=== PATIENT | male | born 1940 | race Caucasian/White ===

== ENCOUNTER 2017-02-04 17:34 | Inpatient (IN) | payer MEDICARE, BC ==
[2017-02-04] VITALS (7 sets, daily range): BP systolic 140–194; BP diastolic 78–95; PULSE 68–82; RESP 18–24; TEMP 95.6–97.6; O2SAT 96–99
[~2017-02-04] VITALS: Ht 172.7 cm; Wt 55.2 kg
[~2017-02-04 17:34] MED LIST: MECL-62 PO
[2017-02-04] MEDS ORDERED: SODIUM CHLOR 0.9% 1000 ML INJ 1,000 ML IV SCH (18:07)
--- NOTE | 2017-02-04 18:14 | PD ---
HPI Chief Complaint: Abdominal Pain Time Seen by Provider: 17:56 Travel History International Travel<30 days: No Contact w/Intl Traveler<30days: No Traveled to known affect area: No History of Present Illness HPI 76-year-old male complains of abdominal pain. Patient states that the abdominal pain started 2 days ago. Patient states the pain is cramping pain localized to lower abdomen. Patient denies any pain radiation. Patient denies any nausea vomiting diarrhea. Patient denies any dysuria or frequency. Patient denies any fever chills. Patient denies any back pain. Patient was seen at local urgent care center today and had outpatient CT scan abdomen and pelvis done. CT scan abdomen pelvis done at [facility] which shows small bowel obstruction with transitional point at the right low quadrant of the mid ileum. A mass is not seen. Abdominal aortic aneurysm measuring up to 3.7 cm. Hepatic cyst. Patient was advised to go to ED for evaluation and asthma admission. Patient denies any medical problem. Patient states that he is not on any routine medications. PFSH Past Medical History High Cholesterol: Yes Diminished Hearing: Yes Hypertension: Yes Social History Alcohol Use: No Tobacco Use: Yes (1 PPD) Substance Use: No Allergies-Medications (Allergen,Severity, Reaction): Coded Allergies: No Known Allergies (Unverified , 02/04/17) Reported Meds & Prescriptions Reported Meds & Active Scripts Active No Active Prescriptions or Reported Medications Review of Systems General / Constitutional: No: Fever Eyes: No: Visual changes HENT: No: Headaches Cardiovascular: No: Chest Pain or Discomfort Respiratory: No: Shortness of Breath Gastrointestinal: Positive: Abdominal Pain Genitourinary: No: Dysuria Musculoskeletal: No: Pain Skin: No Rash Neurologic: No: Weakness Psychiatric: No: Depression Endocrine: No: Polydipsia Hematologic/Lymphatic: No: Easy Bruising Physical Exam Narrative GENERAL: Well-nourished, well-developed patient. SKIN: Focused skin assessment warm/dry. HEAD: Normocephalic. EYES: No scleral icterus. No injection or drainage. NECK: Supple, trachea midline. No JVD or lymphadenopathy. CARDIOVASCULAR: Regular rate and rhythm without murmurs, gallops, or rubs. RESPIRATORY: Breath sounds equal bilaterally. No accessory muscle use. GASTROINTESTINAL: Abdomen soft, nondistended. Patient has moderate tenderness on palpation lower abdomen. No rebound tenderness. No mass. MUSCULOSKELETAL: No cyanosis, or edema. BACK: Nontender without obvious deformity. No CVA tenderness. Neurologic exam normal. Data Data Last Documented VS Vital Signs Date Time Temp Pulse Resp B/P Pulse Ox O2 Delivery O2 Flow Rate FiO2 02/04/17 17:38 97.3 82 20 146/82 99 MDM Medical Decision Making Medical Screen Exam Complete: Yes Emergency Medical Condition: Yes Differential Diagnosis Differential diagnosis including small bowel obstruction, ileus, enteritis, electrolyte imbalance, dehydration. Narrative Course 76-year-old male complains of low abdominal pain. CT abdomen pelvis shows small bowel obstruction. Normal saline solution 125 cc an hour. Protonix 40 mg IV. Nothing by mouth. Diagnosis Primary Impression: Small bowel obstruction Scripts No Active Prescriptions or Reported Meds Ruperto Draper MD Feb 04, 2017 18:14
[2017-02-04] MEDS ORDERED: ONDANSETRON HCL 4 MG/2 ML VIAL IVP ONE (18:15)
[2017-02-04] MEDS ORDERED: PANTOPRAZOLE SODIUM 40 MG VIAL IVP ONE (18:15)
[2017-02-04 18:24] LABS: AUTOMATED NEUTROPHIL # 8.6 TH/MM3 (1.8-7.7); BASOPHIL # 0.1 TH/MM3 (0-0.2); BASOPHIL % 0.5 % (0.0-2.0); EOSINOPHIL # 0.2 TH/MM3 (0-0.4); EOSINOPHIL % 2.3 % (0.0-4.0); LYMPH % 11.3 % (9.0-44.0); LYMPHOCYTE # 1.2 TH/MM3 (1.0-4.8); MEAN CELL VOLUME 92.7 FL (80.0-100.0); MEAN CORPUSCULAR HGB CONC 33.4 % (32.0-36.0); NEUT % 79.9 % (16.0-70.0); PLATELET COUNT 236 TH/MM3 (150-450); RED BLOOD COUNT 4.96 MIL/MM3 (4.50-5.90); RED CELL DISTRIBUTION WIDTH 12.4 % (11.6-17.2); WHITE BLOOD COUNT 10.7 TH/MM3 (4.0-11.0)
[2017-02-04 18:29] LABS: CHLORIDE 102 MEQ/L (98-107); POTASSIUM 4.2 MEQ/L (3.5-5.1); SODIUM (NA) 140 MEQ/L (136-145)
[2017-02-04 18:33] LABS: ANION GAP 6 MEQ/L (5-15); BICARBONATE 31.6 MEQ/L (21.0-32.0); BLOOD UREA NITROGEN 21 MG/DL (7-18)
[2017-02-04 18:36] LABS: ALT (GPT) 12 U/L (12-78); AST (GOT) 10 U/L (15-37); GLOMERULAR FILTRATION RATE 49 ML/MIN (>89); HEMO FLAGS DIFF FINAL; PROTHROMBIN TIME - PATIENT 10.8 SEC (9.8-11.6)
[2017-02-04 18:37] LABS: TOTAL BILIRUBIN ADULT 0.6 MG/DL (0.2-1.0)
[2017-02-04 18:39] LABS: ALKALINE PHOSPHATASE 94 U/L (45-117)
[2017-02-04 19:34] LABS: BLOOD, URINE NEG (NEG); GLUCOSE,URINE NEG (NEG); KETONE, URINE NEG (NEG); NITRITE,URINE NEG (NEG); PH, URINE 5.5 (5.0-8.5)
--- NOTE | 2017-02-04 19:42 | PD ---
Physical Exam Time Seen by Provider: 19:[address] Draper with this patient with me to check the results of the lab work and admit. Dr. Draper ordered a CT scan/pelvis which showed a suspected small bowel obstruction with transition point in the right lower quadrant at the mid ileum. A Mass is not seen. Data Data Last Documented VS Vital Signs Date Time Temp Pulse Resp B/P Pulse Ox O2 Delivery O2 Flow Rate FiO2 02/04/17 18:26 79 20 154/81 98 02/04/17 17:38 97.3 Orders Complete Blood Count With Diff (02/04/17 18:07) Comprehensive Metabolic Panel (02/04/17 18:07) Lipase (02/04/17 18:07) Prothrombin Time / Inr (Pt) (02/04/17 18:07) Act Partial Throm Time (Ptt) (02/04/17 18:07) Urinalysis - C+S If Indicated (02/04/17 18:07) Iv Access Insert/Monitor (02/04/17 18:07) Ecg Monitoring (02/04/17 18:07) Oximetry (02/04/17 18:07) Ondansetron Inj (Zofran Inj) (02/04/17 18:15) Pantoprazole Inj (Protonix Inj) (02/04/17 18:15) Sodium Chlor 0.9% 1000 Ml Inj (Ns 1000 M (02/04/17 18:07) Electrocardiogram (02/04/17 18:07) Labs Laboratory Tests Test 02/04/17 18:15 White Blood Count 10.7 TH/MM3 Red Blood Count 4.96 MIL/MM3 Hemoglobin 15.4 GM/DL Hematocrit 46.0 % Mean Corpuscular Volume 92.7 FL Mean Corpuscular Hemoglobin 31.0 PG Mean Corpuscular Hemoglobin 33.4 % Concent Red Cell Distribution Width 12.4 % Platelet Count 236 TH/MM3 Mean Platelet Volume 7.9 FL Neutrophils (%) (Auto) 79.9 % Lymphocytes (%) (Auto) 11.3 % Monocytes (%) (Auto) 6.0 % Eosinophils (%) (Auto) 2.3 % Basophils (%) (Auto) 0.5 % Neutrophils # (Auto) 8.6 TH/MM3 Lymphocytes # (Auto) 1.2 TH/MM3 Monocytes # (Auto) 0.6 TH/MM3 Eosinophils # (Auto) 0.2 TH/MM3 Basophils # (Auto) 0.1 TH/MM3 CBC Comment DIFF FINAL Differential Comment Prothrombin Time 10.8 SEC Prothromb Time International 1.0 RATIO Ratio Activated Partial 31.0 SEC Thromboplast Time Sodium Level 140 MEQ/L Potassium Level 4.2 MEQ/L Chloride Level 102 MEQ/L Carbon Dioxide Level 31.6 MEQ/L Anion Gap 6 MEQ/L Blood Urea Nitrogen 21 MG/DL Creatinine 1.40 MG/DL Estimat Glomerular Filtration 49 ML/MIN Rate Random Glucose 92 MG/DL Calcium Level 9.4 MG/DL Total Bilirubin 0.6 MG/DL Aspartate Amino Transf 10 U/L (AST/SGOT) Alanine Aminotransferase 12 U/L (ALT/SGPT) Alkaline Phosphatase 94 U/L Total Protein 7.2 GM/DL Albumin 4.0 GM/DL Lipase 104 U/L [facility] Medical Record Reviewed: Yes Supervised Visit with LAXMI: Yes Interpretation(s) The complete metabolic profile shows a BUN of 21, creatinine 1.4, GFR of 49 but is otherwise unremarkable. The lipase is normal. The coagulation profile shows an APTT of 31 but is otherwise unremarkable. The CBC is normal. The CT abdomen/pelvis with IV and by mouth contrast shows a small bowel obstruction. Differential Diagnosis Small bowel obstruction, abdominal mass, pancreatitis, electrolyte disorder, anemia Narrative Course The patient has a small bowel obstruction. The patient has a surgical scar from the xiphoid process to below the umbilicus but he does not remember what it was for. He said this most of appendectomy [place]. The patient likely has adhesions as the reason for the small bowel obstruction. Plan: The patient will be admitted to Dr. Medina of the [facility] service. He is essentially in no discomfort now and has not been vomiting and an NG tube will be withheld at this time. Diagnosis Primary Impression: Small bowel obstruction Scripts No Active Prescriptions or Reported Meds Wade Dalton MD Feb 04, 2017 19:42
[2017-02-04 19:43] LABS: URINE COLOR YELLOW (YELLW/STRAW)
[2017-02-04 19:45] LABS: COMMENT (UR) CULT NOT INDICATED; CULTURE IF INDICATED CULT NOT INDICATED; RBC, URINE 0-3 /hpf (0-3); SQUAMOUS EPITHELIAL CELL URINE 0-5 /hpf (0-5); WBC, URINE 0-2 /hpf (0-5)
[2017-02-04] MEDS: SODIUM CHLOR 0.9% 1000 ML INJ 1,000 ML IV SCH (19:46)
[2017-02-04] MEDS ORDERED: SENNOSIDES 8.6 MG TAB PO PRN (20:00)
[2017-02-04] MEDS ORDERED: BISACODYL 10 MG SUPP RECTAL PRN (20:00)
[2017-02-04] MEDS ORDERED: NALOXONE HCL 0.4 MG/ML AMP IV PRN (20:00)
[2017-02-04] MEDS ORDERED: LACTULOSE SYRUP 20 GM/30 ML CUP PO PRN (20:00)
[2017-02-04] MEDS ORDERED: MORPHINE SULFATE 4 MG/ML INJ IV PUSH PRN (20:00)
[2017-02-04] MEDS ORDERED: MAGNESIUM HYDROXIDE SUSP 30 ML CUP PO PRN (20:00)
[2017-02-04] MEDS ORDERED: SODIUM CHLORIDE 0.9% FLUSH 10 ML FLUSH IV FLUSH PRN (20:00)
[2017-02-04] MEDS: DOCUSATE SODIUM 50 MG/SENNA 8.6 MG TAB PO SCH (21:00)
[2017-02-04] MEDS: SODIUM CHLORIDE 0.9% FLUSH 10 ML FLUSH IV FLUSH SCH (21:00)
[2017-02-05] MEDS: SODIUM CHLOR 0.9% 1000 ML INJ 1,000 ML IV SCH (01:59)
[2017-02-05 04:00] VITALS: BP 189/97; PULSE 65; RESP 18; TEMP 97.4; O2SAT 96
[2017-02-05 06:50] LABS: AUTOMATED NEUTROPHIL # 5.1 TH/MM3 (1.8-7.7); BASOPHIL % 0.4 % (0.0-2.0); EOSINOPHIL # 0.3 TH/MM3 (0-0.4); EOSINOPHIL % 4.4 % (0.0-4.0); HEMATOCRIT 39.1 % (39.0-51.0); HEMO FLAGS DIFF FINAL; LYMPH % 17.8 % (9.0-44.0); LYMPHOCYTE # 1.3 TH/MM3 (1.0-4.8); MEAN CELL VOLUME 92.3 FL (80.0-100.0); MEAN CORPUSCULAR HEMOGLOBIN 31.9 PG (27.0-34.0); MEAN CORPUSCULAR HGB CONC 34.5 % (32.0-36.0); MONO % 7.6 % (0.0-8.0); NEUT % 69.8 % (16.0-70.0); PLATELET COUNT 187 TH/MM3 (150-450); RED BLOOD COUNT 4.24 MIL/MM3 (4.50-5.90); RED CELL DISTRIBUTION WIDTH 12.3 % (11.6-17.2); WHITE BLOOD COUNT 7.3 TH/MM3 (4.0-11.0)
[2017-02-05 06:55] LABS: CHLORIDE 107 MEQ/L (98-107); POTASSIUM 4.1 MEQ/L (3.5-5.1); SODIUM (NA) 144 MEQ/L (136-145)
[2017-02-05 07:20] LABS: ALKALINE PHOSPHATASE 90 U/L (45-117); ALT (GPT) 10 U/L (12-78); ANION GAP 6 MEQ/L (5-15); AST (GOT) 12 U/L (15-37); BICARBONATE 30.6 MEQ/L (21.0-32.0); BLOOD UREA NITROGEN 14 MG/DL (7-18); GLOMERULAR FILTRATION RATE 65 ML/MIN (>89); TOTAL BILIRUBIN ADULT 0.8 MG/DL (0.2-1.0)
[2017-02-05 08:00] VITALS: BP 179/103; PULSE 67; RESP 20; TEMP 97; O2SAT 95
[2017-02-05] MEDS: SODIUM CHLORIDE 0.9% FLUSH 10 ML FLUSH IV FLUSH SCH (08:59)
[2017-02-05] MEDS: DOCUSATE SODIUM 50 MG/SENNA 8.6 MG TAB PO SCH (08:59)
--- NOTE | 2017-02-05 09:15 | HHI.HP ---
[facility] No Primary Care Physician Admission Diagnosis small bowel obstruction Diagnoses: (1) Small bowel obstruction Diagnosis: Principal (2) Accelerated hypertension Diagnosis: Principal (3) Azotemia Diagnosis: Principal Chief Complaint: Sent over by urgent care because of abnormal CT results Travel History International Travel<30 Days: No Contact w/Intl Traveler <30 Da: No Traveled to Known Affected Are: No History of Present Illness Written by Eriberto Dalton, acting as scribe for Dr. Cash on 02/05/17 at 09: 13. 76 year-old male who indicates he does not have any chronic medical illnesses and does not take any medication on a daily basis. His memory questionable. He cannot tell me the city, state, year, president. However he knows his history quite well to include social history, family history. He indicates that over the last 2 weeks he has had abdominal discomfort. He went to an urgent care center yesterday and had CT scan done which did show small bowel obstruction with transition zone. Patient referred to the ER for continued management and care. Patient was evaluated by ER physician. Found to have some mild azotemia. Patient was recommended admission by ER physician. Patient had 3 bowel movements in emergency department the patient indicates that his abdominal pain is much improved. He wants to go home. Patient denies any nausea, vomiting, diarrhea, chest pain, shortness of breath, dyspnea Review of Systems Constitutional: DENIES: Diaphoretic episodes, Fatigue, Fever, Weight gain, Weight loss, Chills, Dizziness, Change in appetite, Night Sweats Endocrine: DENIES: Heat/cold intolerance, Polydipsia, Polyuria, Polyphagia Eyes: DENIES: Blurred vision, Diplopia, Eye inflammation, Eye pain, Vision loss , Double Vision Ears, nose, mouth, throat: COMPLAINS OF: Hearing loss, DENIES: Nasal discharge , Throat pain, Ear Pain, Running Nose, Sinus Pain Respiratory: DENIES: Apneas, Cough, Snoring, Wheezing, Hemoptysis, Sputum production, Shortness of breath Cardiovascular: DENIES: Chest pain, Palpitations, Syncope, Dyspnea on Exertion , PND, Lower Extremity Edema, Orthopnea, Claudication Gastrointestinal: COMPLAINS OF: Abdominal pain, DENIES: Black stools, Bloody stools, Constipation, Diarrhea, Nausea, Vomiting, Difficulty Swallowing, Anorexia Genitourinary: DENIES: Sexual dysfunction, Urinary frequency, Urinary incontinence, Urgency, Hematuria, Dysuria, Nocturia, Penile Discharge, Testicular Pain, Testicular Swelling Musculoskeletal: DENIES: Joint pain, Muscle aches, Stiffness, Joint Swelling, Back pain, Neck pain Integumentary: DENIES: Abnormal pigmentation, Nail changes, Pruritus, Rash Hematologic/lymphatic: DENIES: Bruising, Lymphadenopathy Immunologic/allergic: DENIES: Eczema, Urticaria Neurologic: DENIES: Abnormal gait, Headache, Localized weakness, Paresthesias, Seizures, Speech Problems, Tremor, Poor Balance Psychiatric: DENIES: Anxiety, Confusion, Mood changes, Depression, Hallucinations, Agitation, Suicidal Ideation, Homicidal Ideation, Delusions Past Family Social History Past Medical History Patient denies any chronic medical illnesses Past Surgical History Abdominal surgery for appendicitis Reported Medications Reported Meds & Active Scripts Active No Active Prescriptions or Reported Medications Allergies: Coded Allergies: No Known Allergies (Unverified , 02/04/17) Family History Reviewed is significant for lung cancer Social History Patient smokes a pack a cigarettes a day since he was 14 years old. Denies any alcohol or illicit drugs Physical Exam Vital Signs Vital Signs Date Time Temp Pulse Resp B/P Pulse Ox O2 Delivery O2 Flow Rate FiO2 02/05/17 08:00 97.0 67 20 179/103 95 02/05/17 04:00 97.4 65 18 189/97 96 02/04/17 22:05 95.6 70 18 194/95 97 02/04/17 22:02 82 20 170/78 95 02/04/17 21:18 68 20 175/93 97 02/04/17 19:37 24 02/04/17 19:34 97.6 82 24 140/86 96 02/04/17 18:26 79 20 154/81 98 02/04/17 18:25 98 02/04/17 17:38 97.3 82 20 146/82 99 Physical Exam GENERAL: Well-developed, well-nourished, in no acute distress. alert and orientated to person. HEENT: Head is normocephalic without any lesions or masses noted. Facial features are symmetric. Eyes: Pupils equal round reactive to light. Extraocular muscles are intact. Conjunctivae were clear. Oropharyngeal: Pharynx without any erythema edema. Tongue is midline without deviation. Buccal mucosa is moist without any masses or lesions NECK: Supple without any masses. Trachea midline no deviation. No JVD, no bruits are appreciated CARDIAC: Regular rhythm, regular rate. S1/S2 are heard. No murmurs gallops or rubs. LUNGS: Clear to auscultation bilaterally. No wheeze, rhonchi or rales. No use of accessory muscles on inspiration or expiration. ABDOMEN: Soft, mid abdominal scar noted. Nontender. Nondistended. Bowel sounds heard in all 4 quadrants. No organomegaly or masses. Negative rebound, negative guarding EXTREMITIES: No edema, pulses are equal bilaterally. No cyanosis or clubbing NEUROLOGY: Mood and affect appear appropriate. Cranial nerves II through XII grossly intact. Muscle strength 5/5 in upper and lower extremities bilaterally. Deep tendon reflexes are 2+ in upper and lower extremities bilaterally. Laboratory Laboratory Tests Test 02/04/17 02/04/17 02/05/17 18:15 19:30 05:17 White Blood Count 10.7 7.3 Red Blood Count 4.96 4.24 Hemoglobin 15.4 13.5 Hematocrit 46.0 39.1 Mean Corpuscular Volume 92.7 92.3 Mean Corpuscular Hemoglobin 31.0 31.9 Mean Corpuscular Hemoglobin 33.4 34.5 Concent Red Cell Distribution Width 12.4 12.3 Platelet Count 236 187 Mean Platelet Volume 7.9 8.0 Neutrophils (%) (Auto) 79.9 69.8 Lymphocytes (%) (Auto) 11.3 17.8 Monocytes (%) (Auto) 6.0 7.6 Eosinophils (%) (Auto) 2.3 4.4 Basophils (%) (Auto) 0.5 0.4 Neutrophils # (Auto) 8.6 5.1 Lymphocytes # (Auto) 1.2 1.3 Monocytes # (Auto) 0.6 0.6 Eosinophils # (Auto) 0.2 0.3 Basophils # (Auto) 0.1 0.0 CBC Comment DIFF FINAL DIFF FINAL Differential Comment Prothrombin Time 10.8 Prothromb Time International 1.0 Ratio Activated Partial 31.0 Thromboplast Time Sodium Level 140 144 Potassium Level 4.2 4.1 Chloride Level 102 107 Carbon Dioxide Level 31.6 30.6 Anion Gap 6 6 Blood Urea Nitrogen 21 14 Creatinine 1.40 1.10 Estimat Glomerular Filtration 49 65 Rate Random Glucose 92 70 Calcium Level 9.4 8.6 Total Bilirubin 0.6 0.8 Aspartate Amino Transf 10 12 (AST/SGOT) Alanine Aminotransferase 12 10 (ALT/SGPT) Alkaline Phosphatase 94 90 Total Protein 7.2 5.7 Albumin 4.0 3.2 Lipase 104 Urine Color YELLOW Urine Turbidity CLEAR Urine pH 5.5 Urine Specific [place] GREATER THAN 1.035 Urine Protein NEG Urine Glucose (UA) NEG Urine Ketones NEG Urine Occult Blood NEG Urine Nitrite NEG Urine Bilirubin NEG Urine Leukocyte Esterase NEG Urine RBC 0-3 Urine WBC 0-2 Urine Squamous Epithelial 0-5 Cells Urine Bacteria NONE Microscopic Urinalysis Comment CULT NOT INDICATED Result Diagram: 02/05/1751602/05/17516 Assessment and Plan Problem List: (1) Small bowel obstruction ICD Code: K56.69 Status: Acute Plan: Patient clinically improved at this time. He had 3 bowel movements in emergency department Check flat and upright abdominal series to evaluate for resolution of bowel obstruction IV parenteral pain medication, antiemetic, IV fluid hydration Patient is eager to go home, If obstruction resolved will plan discharge home (2) Accelerated hypertension ICD Code: I10 Status: Acute Plan: Patient denies any history of hypertension or medications Start lisinopril 10 mg daily Vasotec as needed (3) Azotemia ICD Code: R79.89 Status: Resolved Plan: Likely secondary to mild dehydration Follow-up laboratory studies haven't surgically improved Assessment and Plan This note was transcribed by marissa Dalton. I, Dr. Benedict Cash personally performed the history, physical exam, and medical decision making; and confirmed the accuracy of the information in the transcribed note. Authenticated by Dr. Benedict Cash on 02/05/17 at 09:23. Discharge disposition Discharge home in stable condition once clinically improved and bowel obstruction resolved Activity: Ad dawna. Diet: Healthy heart diet Medications per medication reconciliation Follow-up primary medical doctor in one week Code Status Full code Discussed Condition With Patient Physician Certification 2 Midnight Certification Type: Admission for Inpatient Services Order for Inpatient Services The services are ordered in accordance with Medicare regulations or non- Medicare payer requirements, as applicable. In the case of services not specified as inpatient-only, they are appropriately provided as inpatient services in accordance with the 2-midnight benchmark. Estimated LOS (days): 2 days is the estimated time the patient will need to remain in the hospital, assuming treatment plan goals are met and no additional complications. Post-Hospital Plan: Not yet determined Eriberto Dalton Feb 05, 2017 09:15 Benedict Cash MD Feb 05, 2017 09:15
[2017-02-05] MEDS ORDERED: ENALAPRILAT 1.25 MG/ML VIAL IV PUSH PRN (09:30)
[2017-02-05] MEDS ORDERED: LISINOPRIL 10 MG TAB PO SCH (10:00)
--- NOTE | 2017-02-05 11:01 | RADRPT ---
EXAM DATE/TIME: 02/05/2017 09:19 [facility] COMPARISON: No previous studies available for comparison. INDICATIONS : Obstruction. Abdominal pain MEDICAL HISTORY : None. SURGICAL HISTORY : None. ENCOUNTER: Initial ACUITY: 3 days PAIN SCORE: 0/10 LOCATION: Abdomen FINDINGS: There is residual contrast in large bowel. Small amount of residual contrast also present in the blad audi. Bowel gas pattern demonstrates a mild ileus. No evidence for obstruction on the current exam. No free air. CONCLUSION: 1. Residual contrast in large bowel and bladder. Mild ileus. No definite evidence for obstruction. Robert Giles MD on February 05, 2017 at 10:57 Board Certified Radiologist. This report was verified electronically.
[2017-02-05] MEDS ORDERED: MORPHINE SULFATE 4 MG/ML INJ IV PUSH PRN (11:30)
[2017-02-05 12:00] VITALS: BP 158/98; PULSE 78; RESP 20; TEMP 96.5; O2SAT 95
[2017-02-05] MEDS ORDERED: LISI10TA3 PO (14:02)
--- NOTE | 2017-02-05 14:03 | HHI.DCPOC ---
Discharge Care Plan Diagnosis: (1) Small bowel obstruction (2) Accelerated hypertension (3) Azotemia Goals to Promote Your Health * To prevent worsening of your condition and complications * To maintain your health at the optimal level Directions to Meet Your Goals Take your medications as prescribed Follow your dietary instruction Follow activity as directed Keep your appointments as scheduled Take your immunizations and boosters as scheduled If your symptoms worsen call your PCP, if no PCP go to Urgent Care Center or Emergency Room Smoking is Dangerous to Your Health. Avoid second hand smoke Call the 24-hour hour crisis hotline for domestic abuse at Eriberto Dalton Feb 05, 2017 14:03
--- NOTE | 2017-02-05 16:08 | EKG ---
Date Performed: 02/04/2017 Time Performed: 18:19:43 PTAGE: 76 years EKG: Sinus rhythm INDETERMINATE AXIS ATYPICAL ECG NO PREVIOUS TRACING DOCTOR: Vero Radford Interpretating Date/Time 02/05/2017 16:07:07
== END 2017-02-05 13:00 | disposition home or self-care (01) | DRG 390 ==
LOC: PHED 17:34 → PHEDA 19:43 → PH3B 22:06
PROVIDERS: ADMIT Hospitalist; ATTEND Hospitalist
DX: K56.5 Intestinal adhesions [bands] with obstruction (postinfection) (principal); K76.89 Other specified diseases of liver; I10 Essential (primary) hypertension; R79.89 Other specified abnormal findings of blood chemistry; F17.210 Nicotine dependence, cigarettes, uncomplicated; E78.00 Pure hypercholesterolemia, unspecified; I71.4 Abdominal aortic aneurysm, without rupture; J45.909 Unspecified asthma, uncomplicated; H91.90 Unspecified hearing loss, unspecified ear
CPT/HCPCS: 74020; 80053; 81001; 83690; 85025; 85610; 85730; 93005; C9113; J2405; J7030

== ENCOUNTER 2017-12-02 18:57 | Inpatient (IN) | payer MEDICARE, BC ==
[~2017-12-02] VITALS: Ht 167.6 cm; Wt 53.2 kg
[~2017-12-02 18:57] MED LIST changes: +LISI10TA3 PO; -MECL-62 PO
[2017-12-02 19:00] VITALS: BP 156/70; PULSE 78; RESP 22; TEMP 98.3; O2SAT 99
[2017-12-02] MEDS ORDERED: SODIUM CHLORIDE 0.9% FLUSH 10 ML FLUSH IV FLUSH PRN ×2 (19:15→22:15)
[2017-12-02 19:48] LABS: AUTOMATED NEUTROPHIL # 4.6 TH/MM3 (1.8-7.7); BASOPHIL # 0.1 TH/MM3 (0-0.2); BASOPHIL % 1.1 % (0.0-2.0); EOSINOPHIL # 0.3 TH/MM3 (0-0.4); EOSINOPHIL % 5.4 % (0.0-4.0); HEMATOCRIT 39.5 % (39.0-51.0); HEMOGLOBIN 12.6 GM/DL (13.0-17.0); LYMPH % 14.1 % (9.0-44.0); LYMPHOCYTE # 0.9 TH/MM3 (1.0-4.8); MEAN CELL VOLUME 95.5 FL (80.0-100.0); MEAN CORPUSCULAR HEMOGLOBIN 30.4 PG (27.0-34.0); MEAN CORPUSCULAR HGB CONC 31.8 % (32.0-36.0); MEAN PLATELET VOLUME 8.2 FL (7.0-11.0); MONO % 8.1 % (0.0-8.0); MONOCYTE # 0.5 TH/MM3 (0-0.9); NEUT % 71.3 % (16.0-70.0); PLATELET COUNT 160 TH/MM3 (150-450); RED BLOOD COUNT 4.14 MIL/MM3 (4.50-5.90); RED CELL DISTRIBUTION WIDTH 13.7 % (11.6-17.2); WHITE BLOOD COUNT 6.4 TH/MM3 (4.0-11.0)
[2017-12-02 20:03] LABS: CHLORIDE 106 MEQ/L (98-107); SODIUM (NA) 139 MEQ/L (136-145)
[2017-12-02 20:05] LABS: INTERNATIONAL NORMALIZED RATIO 1.2 RATIO; PROTHROMBIN TIME - PATIENT 11.7 SEC (9.8-11.6)
[2017-12-02 20:07] LABS: CALCIUM 8.1 MG/DL (8.5-10.1)
[2017-12-02 20:08] LABS: ALBUMIN 3.2 GM/DL (3.4-5.0); BICARBONATE 29.3 MEQ/L (21.0-32.0); BLOOD UREA NITROGEN 26 MG/DL (7-18); GLUCOSE,RANDOM 80 MG/DL (74-106)
[2017-12-02 20:11] LABS: ALT (GPT) 16 U/L (12-78); AST (GOT) 11 U/L (15-37); GLOMERULAR FILTRATION RATE 42 ML/MIN (>89)
[2017-12-02 20:12] LABS: TOTAL BILIRUBIN ADULT 0.8 MG/DL (0.2-1.0); TOTAL PROTEIN 6.1 GM/DL (6.4-8.2)
[2017-12-02 20:14] LABS: ALKALINE PHOSPHATASE 108 U/L (45-117)
[2017-12-02 20:16] LABS: TROPONIN I 0.02 NG/ML (0.02-0.05)
--- NOTE | 2017-12-02 20:23 | RADRPT ---
EXAM DATE/TIME: 12/02/2017 19:58 [facility] COMPARISON: No previous studies available for comparison. INDICATIONS : Short of breath MEDICAL HISTORY : None. SURGICAL HISTORY : None. ENCOUNTER: Initial ACUITY: 1 day PAIN SCORE: 0/10 LOCATION: Bilateral chest FINDINGS: There is mild streaky perihilar parenchyma opacity and slight interstitial prominence. No significant alveolar consolidation or pleural effusion. Heart size is upper limits of normal. CONCLUSION: Mild streaky perihilar parenchymal opacities and slight interstitial prominence Deon Durham MD on December 02, 2017 at 20:20 Board Certified Radiologist. This report was verified electronically.
[2017-12-02 20:30] VITALS: BP 159/86; PULSE 94; RESP 36; O2SAT 97
[2017-12-02] MEDS ORDERED: LORazepam 2 MG/ML VIAL IV PUSH ONE (20:30)
[2017-12-02 20:31] VITALS: PULSE 92; RESP 38; O2SAT 100
[2017-12-02 20:39] LABS: BLOOD, URINE NEG (NEG); GLUCOSE,URINE 100 mg/dL (NEG); KETONE, URINE TRACE mg/dL (NEG); NITRITE,URINE NEG (NEG); PH, URINE 6.5 (5.0-8.5); URINE LEUKOCYTE ESTERASE NEG (NEG)
[2017-12-02 20:40] LABS: BILIRUBIN, URINE NEG (NEG); URINE COLOR AMBER (YELLW/STRAW)
--- NOTE | 2017-12-02 20:44 | PD ---
HPI Chief Complaint: Altered Mental Status Time Seen by Provider: 19:02 Travel History International Travel<30 days: No Contact w/Intl Traveler<30days: No Traveled to known affect area: No History of Present Illness HPI 77-year-old male brought in by ambulance from home after neighbors called 911 about concerns about the patient's mental status. Apparently the patient was in his yard pulling his pants down. EMS reports that the patient usually has a narcotics and vice detective at home, however there was no narcotics and vice detective to be found. Patient arrives moaning and is unable to provide any meaningful history. He does attempt to answer questions, however his answers do not make any sense. There are no focal neurologic findings on exam, and the patient appears to be uncomfortable, turning in the stretcher seemingly in attempts to make himself more comfortable. PFSH Past Medical History High Cholesterol: Yes Diminished Hearing: Yes Hypertension: Yes ?: Not Social History Alcohol Use: No Tobacco Use: Yes (1 PPD) Substance Use: No Allergies-Medications (Allergen,Severity, Reaction): Coded Allergies: No Known Allergies (Unverified , 02/04/17) Reported Meds & Prescriptions Reported Meds & Active Scripts Active Lisinopril 10 Mg Tab 10 Mg PO DAILY Review of Systems ROS Limitations: Clinical Condition, Altered Mental Status Physical Exam Narrative GENERAL: Well-developed, thin, awake, alert, moaning, tossing and turning in stretcher in attempts to get comfortable. SKIN: Focused skin assessment warm/dry. Healing abrasion to right proximal/ lateral/posterior forearm without surrounding warmth erythema. No new or bleeding lacerations. HEAD: Atraumatic. Normocephalic. EYES: Pupils equal, round, 3 mm, reactive to light. No scleral icterus. No injection or drainage. ENT: Mucous membranes pink and dry. NECK: Trachea midline. No JVD. No nuchal rigidity. CARDIOVASCULAR: Regular rate and rhythm. RESPIRATORY: No accessory muscle use. Clear to auscultation. Breath sounds equal bilaterally. GASTROINTESTINAL: Abdomen soft, mild diffuse tenderness, nondistended, no peritoneal signs. MUSCULOSKELETAL: No obvious deformities. No clubbing. No cyanosis. No edema. NEUROLOGICAL: Awake and alert. No obvious cranial nerve deficits. Motor grossly within normal limits. Inappropriate speech. PSYCHIATRIC: Unable to assess. Data Data Last Documented VS Vital Signs Date Time Temp Pulse Resp B/P (MAP) Pulse Ox O2 Delivery O2 Flow Rate FiO2 12/02/17 21:50 78 24 161/88 (112) 100 Nasal Cannula 2.00 12/02/17 19:00 98.3 Orders Orders Electrocardiogram (12/02/17 19:10) Ammonia (12/02/17 19:10) Complete Blood Count With Diff (12/02/17 19:10) Comprehensive Metabolic Panel (12/02/17 19:10) Creatine Kinase (Cpk) (12/02/17 19:10) Prothrombin Time / Inr (Pt) (12/02/17:10) Act Partial Throm Time (Ptt) (12/02/17:10) Troponin I (12/02/17:10) Thyroid Stimulating Hormone (12/02/17:10) Urinalysis - C+S If Indicated (12/02/17 19:10) Lactic Acid Sepsis Protocol (12/02/17 19:10) Blood Culture (12/02/17 19:10) Chest, Single Ap (12/02/17 19:10) Ct Brain W/O Iv Contrast(Rout) (12/02/17 19:10) Blood Glucose (12/02/17 19:10) Ecg Monitoring (12/02/17 19:10) Iv Access Insert/Monitor (12/02/17:10) Oximetry (12/02/17 19:10) Sodium Chloride 0.9% Flush (Ns Flush) (12/02/17 19:15) Ct Abd/Pel W/O Iv Contrast (12/02/17 ) Cath For Specimen (12/02/17 19:10) Lorazepam Inj (Ativan Inj) (12/02/17 20:30) Ct Thorax/ Chest Wo Iv Contras (12/02/17 ) Labs Laboratory Tests Test 12/02/17 19:20 12/02/17 19:30 12/02/17 20:30 White Blood Count 6.4 TH/MM3 Red Blood Count 4.14 MIL/MM3 Hemoglobin 12.6 GM/DL Hematocrit 39.5 % Mean Corpuscular Volume 95.5 FL Mean Corpuscular Hemoglobin 30.4 PG Mean Corpuscular Hemoglobin Concent 31.8 % Red Cell Distribution Width 13.7 % Platelet Count 160 TH/MM3 Mean Platelet Volume 8.2 FL Neutrophils (%) (Auto) 71.3 % Lymphocytes (%) (Auto) 14.1 % Monocytes (%) (Auto) 8.1 % Eosinophils (%) (Auto) 5.4 % Basophils (%) (Auto) 1.1 % Neutrophils # (Auto) 4.6 TH/MM3 Lymphocytes # (Auto) 0.9 TH/MM3 Monocytes # (Auto) 0.5 TH/MM3 Eosinophils # (Auto) 0.3 TH/MM3 Basophils # (Auto) 0.1 TH/MM3 CBC Comment DIFF FINAL Differential Comment Prothrombin Time 11.7 SEC Prothromb Time International Ratio 1.2 RATIO Activated Partial Thromboplast Time 28.0 SEC Blood Urea Nitrogen 26 MG/DL Creatinine 1.60 MG/DL Random Glucose 80 MG/DL Total Protein 6.1 GM/DL Albumin 3.2 GM/DL Calcium Level 8.1 MG/DL Aspartate Amino Transf (AST/SGOT) 11 U/L Alanine Aminotransferase (ALT/SGPT) 16 U/L Total Bilirubin 0.8 MG/DL Sodium Level 139 MEQ/L Potassium Level 4.2 MEQ/L Chloride Level 106 MEQ/L Carbon Dioxide Level 29.3 MEQ/L Anion Gap 4 MEQ/L Estimat Glomerular Filtration Rate 42 ML/MIN Total Creatine Kinase 75 U/L Troponin I 0.02 NG/ML Thyroid Stimulating Hormone 3rd Gen 3.570 uIU/ML Lactic Acid Level 1.0 mmol/L Ammonia 19 MCMOL/L Urine Color OSMIN Urine Turbidity CLEAR Urine pH 6.5 Urine Specific [place] 1.025 Urine Protein 30 mg/dL Urine Glucose (UA) 100 mg/dL Urine Ketones TRACE mg/dL Urine Occult Blood NEG Urine Nitrite NEG Urine Bilirubin NEG Urine Urobilinogen 1.0 MG/DL Urine Leukocyte Esterase NEG Urine RBC 0-3 /hpf Urine WBC 0-2 /hpf Urine Bacteria NONE /hpf Microscopic Urinalysis Comment CULT NOT INDICATED MDM Medical Decision Making Medical Screen Exam Complete: Yes Emergency Medical Condition: Yes Differential Diagnosis Intracranial abnormality, sepsis, pneumonia, intra-abdominal process, UTI, metabolic abnormality, encephalopathy, delirium, dementia Narrative Course Several attempts were made by the patient's nurse and charge nurse to contact the narcotics and vice detective on record, however there is no answer. Initial vital signs show heart rate 78, blood pressure 156/70, pulse ox 99% on room air, rectal temperature 98.3F. CBC: WBC 6.4, hemoglobin 12.6, hematocrit 39.5, platelets 160, neutrophils 71%. CMP is remarkable for BUN 26, creatinine 1.6, GFR 42 which is slightly worse than his baseline, otherwise unremarkable. Lactic acid is 1. Ammonia is 19. TSH is 3.57. UA: 30 protein, 100 glucose, trace ketones, not suggestive of UTI. Chest x-ray: Mild streaky perihilar parenchymal opacities and slight interstitial prominence. CT head: CONCLUSION: Atrophy and chronic appearing white matter changes CT thorax: CONCLUSION: Emphysema and diffuse mild interstitial disease which appears at least partly chronic. Small bilateral pulmonary nodules which will need to be followed. Small bilateral effusions. CT abdomen pelvis: CONCLUSION: Motion degraded exam grossly negative for acute intra-abdominal process. Patient required 2 mg of Ativan for sedation in order to obtain CT scans. He was unable to provide any history on presentation. I do not have a clear explanation for his altered mental status and do not know if this is his baseline. He is clearly not safe to be discharged home. He will be admitted for further treatment and evaluation of altered mental status. DCF will be contacted. Case discussed with hospitalist Dr. Antonio who will admit the patient to the hospitalist service. Diagnosis Primary Impression: Altered mental status Qualified Codes: R41.0 - Disorientation, unspecified Additional Impressions: Pulmonary nodules Pleural effusion Admitting Information Admitting Physician Requests: Tim Hinojosa MD Dec 02, 2017 20:44
[2017-12-02 20:45] LABS: RBC, URINE 0-3 /hpf (0-3); WBC, URINE 0-2 /hpf (0-5)
[2017-12-02 21:32] VITALS: PULSE 98; RESP 36; O2SAT 98
--- NOTE | 2017-12-02 21:37 | RADRPT ---
EXAM DATE/TIME: 12/02/2017 20:59 2 [facility] COMPARISON: No previous studies available for comparison. INDICATIONS : Altered mental status. RADIATION DOSE: 58.57 CTDIvol (mGy) ; Patient motion MEDICAL HISTORY : Hypertension. SURGICAL HISTORY : None. ENCOUNTER: Initial ACUITY: 1 day PAIN SCALE: 0/10 LOCATION: cranial TECHNIQUE: Multiple contiguous axial images were obtained of the head. Using automated exposure control and adj ustment of the mA and/or kV according to patient size, radiation dose was kept as low as reasonably a chievable to obtain optimal diagnostic quality images. DICOM format image data is available electro nically for review and comparison. FINDINGS: The ventricles are symmetric and minimally prominent. There is mild symmetric cortical atrophy. There is mild-moderate chronic appearing central white matter hypodensity. There is no evidence of mass or hemorrhage. As nothing to suggest acute infarction. CONCLUSION: Atrophy and chronic appearing white matter changes Deon Durham MD on December 02, 2017 at 21:33 Board Certified Radiologist. This report was verified electronically.
--- NOTE | 2017-12-02 21:46 | RADRPT ---
EXAM DATE/TIME: 12/02/2017 21:03 [facility] COMPARISON: CHEST SINGLE AP, December 02, 2017, 19:58. INDICATIONS : Short of breath. Abnormal chest xray. RADIATION DOSE: 9.41 CTDIvol (mGy) ; Combined studies - Thorax/Abdomen/Pelvis MEDICAL HISTORY : Hypertension. SURGICAL HISTORY : None. ENCOUNTER: Initial ACUITY: 1 day PAIN SCALE: 0/10 LOCATION: chest TECHNIQUE: Volumetric scanning of the chest was performed. Using automated exposure control and adjustment of t he mA and/or kV according to patient size, radiation dose was kept as low as reasonably achievable to obtain optimal diagnostic quality images. DICOM format image data is available electronically for r eview and comparison. Follow-up recommendations for detected pulmonary nodules are based at a minimum on nodule size and pa tient risk factors according to Fleischner Society Guidelines. FINDINGS: LUNGS: There is emphysema and coarse interstitial thickening present diffusely. There is a 9 mm noncalcified nodule in the posterior lateral aspect of the superior segment of the left lower lobe. There is a sm aller nodule in the subpleural aspect of the lateral left upper lobe and a tiny nodule in the lateral right lung base. PLEURAE: Small bilateral effusions, larger on the left than the right. MEDIASTINUM: The heart and great vessels demonstrate no acute abnormality. There is no mediastinal or hilar lymph adenopathy. AXILLAE: Within normal limits. No lymphadenopathy. MUSCULOSKELETAL: Within normal limits for patient age. MISCELLANEOUS: The visualized upper abdominal organs demonstrate no acute abnormality. CONCLUSION: Emphysema and diffuse mild interstitial disease which appears at least partly chronic. Small bilateral pulmonary nodules which will need to be followed. Small bilateral effusions. Deon Durham MD on December 02, 2017 at 21:39 Board Certified Radiologist. This report was verified electronically.
[2017-12-02 21:50] VITALS: BP 161/88; PULSE 78; RESP 24; O2SAT 100
--- NOTE | 2017-12-02 21:51 | RADRPT ---
EXAM DATE/TIME: 12/02/2017 21:03 [facility] COMPARISON: No previous studies available for comparison. INDICATIONS : Non-specific abdominal pain. Altered mental status. ORAL CONTRAST: No oral contrast ingested. RADIATION DOSE: 9.41 CTDIvol (mGy) ; Combined studies - Thorax/Abdomen/Pelvis MEDICAL HISTORY : Hypertension. SURGICAL HISTORY : None. ENCOUNTER: Initial ACUITY: 1 day PAIN SCALE: Non-responsive LOCATION: pelvis abdomen TECHNIQUE: Volumetric scanning of the abdomen and pelvis was performed. Using automated exposure control and ad justment of the mA and/or kV according to patient size, radiation dose was kept as low as reasonably achievable to obtain optimal diagnostic quality images. DICOM format image data is available electro nically for review and comparison. FINDINGS: Study is degraded by patient motion. LIVER: Several small cysts. Small nonspecific low density lesion along the anterior surface of the quadrate which may be a hemangioma. Multiple gallstones. SPLEEN: Normal size without lesion. PANCREAS: Within normal limits. KIDNEYS: Normal in size and shape. There is no mass, stone, or hydronephrosis. ADRENAL GLANDS: Within normal limits. VASCULAR: There are mild saccular outpouchings of the upper abdominal aorta. Maximum diameter is close to 4.2 c m BOWEL/MESENTERY: Prominent diverticular involvement of the distal colon. No abnormal dilatation or wall thickening. No definite focal inflammatory changes. ABDOMINAL WALL: Within normal limits. RETROPERITONEUM: There is no lymphadenopathy. BLADDER: No wall thickening or mass. REPRODUCTIVE: Within normal limits. INGUINAL: There is no lymphadenopathy or hernia. MUSCULOSKELETAL: Within normal limits for patient age. CONCLUSION: Motion degraded exam grossly negative for acute intra-abdominal process. Deon Durham MD on December 02, 2017 at 21:43 Board Certified Radiologist. This report was verified electronically.
[2017-12-02] MEDS ORDERED: SENNOSIDES 8.6 MG TAB PO PRN (22:15)
[2017-12-02] MEDS ORDERED: ONDANSETRON HCL 4 MG/2 ML VIAL IVP PRN (22:15)
[2017-12-02] MEDS ORDERED: MAGNESIUM HYDROXIDE SUSP 30 ML CUP PO PRN (22:15)
[2017-12-02] MEDS ORDERED: BISACODYL 10 MG SUPP RECTAL PRN (22:15)
[2017-12-02] MEDS ORDERED: LACTULOSE SYRUP 20 GM/30 ML CUP PO PRN (22:15)
[2017-12-02 23:48] VITALS: BP 176/89; PULSE 87; RESP 24; O2SAT 97
[2017-12-03] MEDS: SODIUM CHLOR 0.9% 1000 ML INJ 1,000 ML IV SCH ×2 (00:09→09:18)
[2017-12-03 00:30] VITALS: BP 166/97; PULSE 84; RESP 26; TEMP 97.5; O2SAT 95
[2017-12-03 04:00] VITALS: BP 166/98; PULSE 80; RESP 20; TEMP 96; O2SAT 100
[2017-12-03 06:28] LABS: AUTOMATED NEUTROPHIL # 5.1 TH/MM3 (1.8-7.7); BASOPHIL # 0.1 TH/MM3 (0-0.2); BASOPHIL % 0.7 % (0.0-2.0); EOSINOPHIL # 0.4 TH/MM3 (0-0.4); EOSINOPHIL % 4.8 % (0.0-4.0); HEMATOCRIT 41.7 % (39.0-51.0); HEMOGLOBIN 13.7 GM/DL (13.0-17.0); LYMPH % 19.5 % (9.0-44.0); LYMPHOCYTE # 1.4 TH/MM3 (1.0-4.8); MEAN CELL VOLUME 95.7 FL (80.0-100.0); MEAN CORPUSCULAR HEMOGLOBIN 31.4 PG (27.0-34.0); MEAN CORPUSCULAR HGB CONC 32.8 % (32.0-36.0); MEAN PLATELET VOLUME 8.7 FL (7.0-11.0); MONO % 5.9 % (0.0-8.0); MONOCYTE # 0.4 TH/MM3 (0-0.9); NEUT % 69.1 % (16.0-70.0); PLATELET COUNT 174 TH/MM3 (150-450); RED BLOOD COUNT 4.36 MIL/MM3 (4.50-5.90); RED CELL DISTRIBUTION WIDTH 13.7 % (11.6-17.2); WHITE BLOOD COUNT 7.4 TH/MM3 (4.0-11.0)
[2017-12-03 06:35] LABS: CHLORIDE 105 MEQ/L (98-107); SODIUM (NA) 139 MEQ/L (136-145)
[2017-12-03 06:40] LABS: CALCIUM 8.2 MG/DL (8.5-10.1)
[2017-12-03 06:41] LABS: ALBUMIN 3.5 GM/DL (3.4-5.0); BICARBONATE 28.3 MEQ/L (21.0-32.0); BLOOD UREA NITROGEN 22 MG/DL (7-18); GLUCOSE,RANDOM 83 MG/DL (74-106)
[2017-12-03 06:44] LABS: ALT (GPT) 17 U/L (12-78); AST (GOT) 12 U/L (15-37); GLOMERULAR FILTRATION RATE 49 ML/MIN (>89)
[2017-12-03 06:45] LABS: TOTAL BILIRUBIN ADULT 1.1 MG/DL (0.2-1.0)
[2017-12-03 06:46] LABS: TOTAL PROTEIN 6.7 GM/DL (6.4-8.2)
[2017-12-03 06:47] LABS: ALKALINE PHOSPHATASE 118 U/L (45-117)
[2017-12-03 08:00] VITALS: BP 178/70; PULSE 80; RESP 16; TEMP 99.6; O2SAT 80; O2SAT 95
[2017-12-03] MEDS: SODIUM CHLORIDE 0.9% FLUSH 10 ML FLUSH IV FLUSH SCH ×2 (09:00→20:23)
[2017-12-03] MEDS: DOCUSATE SODIUM 50 MG/SENNA 8.6 MG TAB PO SCH ×2 (09:18→20:23)
[2017-12-03] MEDS ORDERED: ENALAPRILAT 1.25 MG/ML VIAL IV PRN (11:45)
[2017-12-03] MEDS: LACTATED RINGER'S 1000 ML INJ 1,000 ML IV SCH ×2 (12:01→18:27)
--- NOTE | 2017-12-03 13:22 | HHI.HP ---
HPI Service [facility] Primary Care Physician Unknown Admission Diagnosis AMS, pulmonary nodule, pleural effusions Diagnoses: Chief Complaint: Wandered off at home Travel History International Travel<30 Days: No Contact w/Intl Traveler <30 Da: No Traveled to Known Affected Are: No History of Present Illness This patient is a 77-year-old gentleman who has been brought to the emergency room by his roommate who says that he wandered from home for the first time. He has had dementia for some time but has been otherwise pretty sedentary and sleeping all day. Unfortunately he did water away from the home and was found by concern neighbors who called 911. He was pulling his pants down in the yard. Patient says that he has no problems however he is quite confused with only complai of abdominal pain. Patient's roommate said he did have an abdominal pain over the last couple of days and he did buy some aspirin and some gas medication without improvement.nt patient has had poor personal hygiene and not been able to be involved in his personal care. He has had quite a bit of wax in his ears per his roommate and has had increased difficulty hearing. There have been no fevers and chills however the patient appears to have on imaging and some pleural effusions. On exam he has crackles with lower extremity edema +1 and the patient has a low-grade temperature. Patient is being evaluated for acute infectious process and advanced age coinciding with a change in mental status Review of Systems ROS Limitations: Altered Mental Status, Hearing Impaired Constitutional: DENIES: Diaphoretic episodes, Fatigue, Fever, Weight gain, Weight loss, Chills, Dizziness, Change in appetite, Night Sweats Endocrine: DENIES: Heat/cold intolerance, Polydipsia, Polyuria, Polyphagia Eyes: DENIES: Blurred vision, Eye pain Ears, nose, mouth, throat: COMPLAINS OF: Hearing loss, DENIES: Tinnitus, Vertigo, Nasal discharge, Oral lesions, Throat pain, Hoarseness, Ear Pain, Running Nose, Epistaxis, Sinus Pain, Toothache, Odynophagia Respiratory: DENIES: Apneas, Cough, Snoring, Wheezing, Hemoptysis, Sputum production, Shortness of breath Cardiovascular: DENIES: Chest pain, Palpitations, Syncope, Dyspnea on Exertion , PND, Lower Extremity Edema, Orthopnea, Claudication Gastrointestinal: COMPLAINS OF: Abdominal pain, DENIES: Black stools, Bloody stools, Constipation, Diarrhea, Nausea, Vomiting, Difficulty Swallowing, Anorexia Genitourinary: DENIES: Sexual dysfunction, Urinary frequency, Urinary incontinence, Urgency, Hematuria, Dysuria, Nocturia, Penile Discharge, Testicular Pain, Testicular Swelling Musculoskeletal: DENIES: Joint pain, Muscle aches, Stiffness, Joint Swelling, Back pain, Neck pain Integumentary: DENIES: Abnormal pigmentation, Nail changes, Pruritus, Rash Hematologic/lymphatic: DENIES: Bruising, Lymphadenopathy Immunologic/allergic: DENIES: Eczema, Urticaria Neurologic: DENIES: Abnormal gait, Headache, Localized weakness, Paresthesias, Seizures, Speech Problems, Tremor, Poor Balance Psychiatric: COMPLAINS OF: Confusion, DENIES: Anxiety, Mood changes, Depression , Hallucinations, Agitation, Suicidal Ideation, Homicidal Ideation, Delusions Except as stated in HPI: all other systems reviewed are Neg History obtained from roommate Past Family Social History Past Medical History Dementia Allergies: Coded Allergies: No Known Allergies (Unverified , 02/04/17) Physical Exam Vital Signs Vital Signs Date Time Temp Pulse Resp B/P (MAP) Pulse Ox O2 Delivery O2 Flow Rate FiO2 12/03/17 08:00 99.6 80 16 178/70 (106) 80 12/03/17 04:00 96.0 80 20 166/98 (120) 100 Automatic Cuff 12/03/17 00:30 97.5 84 26 166/97 (120) 95 12/03/17 00:04 (118) 12/02/17 23:48 87 24 176/89 (118) 97 Room Air 12/02/17 21:50 78 24 161/88 (112) 100 Nasal Cannula 2.00 12/02/17 21:32 98 36 98 Nasal Cannula 2.00 12/02/17 20:31 92 38 100 Nasal Cannula 2.00 12/02/17 20:30 94 36 97 Room Air 12/02/17 20:30 94 36 159/86 (110) 12/02/17 19:30 99 Room Air 12/02/17 19:00 99 12/02/17 19:00 98.3 78 22 156/70 (98) 99 Physical Exam GENERAL: This is a frail elderly gentleman who is confused but pleasant and complaining of abdominal pain SKIN: No rashes, ecchymoses or lesions. Cool and dry. HEAD: Atraumatic. Normocephalic. No temporal or scalp tenderness. EYES: Pupils equal round and reactive. Extraocular motions intact. No scleral icterus. No injection or drainage. ENT: Nose without bleeding, purulent drainage or septal hematoma. Throat without erythema, tonsillar hypertrophy or exudate. Uvula midline. Airway patent. Bilateral cerumen impaction NECK: Trachea midline. No JVD or lymphadenopathy. Supple, nontender, no meningeal signs. CARDIOVASCULAR: Regular rate and rhythm without murmurs, gallops, or rubs. RESPIRATORY: Decreased breath sounds in the bases with crackles in the bases right greater than left, no wheezes appreciated GASTROINTESTINAL: Abdomen soft, non-tender, nondistended. No hepato-splenomegaly , or palpable masses. No guarding. MUSCULOSKELETAL: Extremities without clubbing, cyanosis, or edema. No joint tenderness, effusion, or edema noted. No calf tenderness. Negative Homans sign bilaterally. NEUROLOGICAL: Awake and alert. Cranial nerves II through XII intact. Motor and sensory grossly within normal limits. Five out of 5 muscle strength in all muscle groups. Normal speech. Laboratory Laboratory Tests Test 12/02/17 19:20 12/02/17 19:30 12/02/17 20:30 12/03/17 05:30 White Blood Count 6.4 7.4 Red Blood Count 4.14 4.36 Hemoglobin 12.6 13.7 Hematocrit 39.5 41.7 Mean Corpuscular Volume 95.5 95.7 Mean Corpuscular Hemoglobin 30.4 31.4 Mean Corpuscular Hemoglobin Concent 31.8 32.8 Red Cell Distribution Width 13.7 13.7 Platelet Count 160 174 Mean Platelet Volume 8.2 8.7 Neutrophils (%) (Auto) 71.3 69.1 Lymphocytes (%) (Auto) 14.1 19.5 Monocytes (%) (Auto) 8.1 5.9 Eosinophils (%) (Auto) 5.4 4.8 Basophils (%) (Auto) 1.1 0.7 Neutrophils # (Auto) 4.6 5.1 Lymphocytes # (Auto) 0.9 1.4 Monocytes # (Auto) 0.5 0.4 Eosinophils # (Auto) 0.3 0.4 Basophils # (Auto) 0.1 0.1 CBC Comment DIFF FINAL DIFF FINAL Differential Comment Prothrombin Time 11.7 Prothromb Time International Ratio 1.2 Activated Partial Thromboplast Time 28.0 Blood Urea Nitrogen 26 22 Creatinine 1.60 1.40 Random Glucose 80 83 Total Protein 6.1 6.7 Albumin 3.2 3.5 Calcium Level 8.1 8.2 Aspartate Amino Transf (AST/SGOT) 11 12 Alanine Aminotransferase (ALT/SGPT) 16 17 Total Bilirubin 0.8 1.1 Sodium Level 139 139 Potassium Level 4.2 3.6 Chloride Level 106 105 Carbon Dioxide Level 29.3 28.3 Anion Gap 4 6 Estimat Glomerular Filtration Rate 42 49 Total Creatine Kinase 75 Troponin I 0.02 Thyroid Stimulating Hormone 3rd Gen 3.570 Lactic Acid Level 1.0 Ammonia 19 Urine Color OSMIN Urine Turbidity CLEAR Urine pH 6.5 Urine Specific Mims 1.025 Urine Protein 30 Urine Glucose (UA) 100 Urine Ketones TRACE Urine Occult Blood NEG Urine Nitrite NEG Urine Bilirubin NEG Urine Urobilinogen 1.0 Urine Leukocyte Esterase NEG Urine RBC 0-3 Urine WBC 0-2 Urine Bacteria NONE Microscopic Urinalysis Comment CULT NOT INDICATED Urine Opiates Screen NEG Urine Barbiturates Screen NEG Urine Amphetamines Screen NEG Urine Benzodiazepines Screen NEG Urine Cocaine Screen NEG Urine Cannabinoids Screen NEG Alkaline Phosphatase 118 Date/Time Source Procedure Growth Status 12/02/17 19:30 Blood Peripheral Aerobic Blood Culture - Preliminary NO GROWTH IN 1 DAY Resulted 12/02/17 19:30 Blood Peripheral Anaerobic Blood Culture - Preliminary NO GROWTH IN 1 DAY Resulted Result Diagram: 12/03/17 0530 12/03/17 0530 Imaging Last Impressions Head CT [id number]/02/171909 Signed Impressions: Service Date/Time: November 20:59 - CONCLUSION: Atrophy and chronic appearing white matter changes Deon Durham MD Chest X-Ray 12/02/171909 Signed Impressions: Service Date/Time: November 19:58 - CONCLUSION: Mild streaky perihilar parenchymal opacities and slight interstitial prominence Deon Durham MD Chest CT 12/02/17 0000 Signed Impressions: Service Date/Time: November 21:03 - CONCLUSION: Emphysema and diffuse mild interstitial disease which appears at least partly chronic. Small bilateral pulmonary nodules which will need to be followed. Small bilateral effusions. Deon Durham MD Abdomen/Pelvis CT 12/02/17 0000 Signed Impressions: Service Date/Time: November 21:03 - CONCLUSION: Motion degraded exam grossly negative for acute intra-abdominal process. Deon Durham MD Septic Shock Reassessment Septic shock perfusion: reassessment completed Caprini VTE Risk Assessment Caprini VTE Risk Assessment: Mod/High Risk (score >= 2) Caprini Risk Assessment Model Point Value = 1 Point Value = 2 Point Value = 3 Point Value = 5 Age 41-60 Minor surgery BMI > 25 kg/m2 Swollen legs Varicose veins or History of unexplained or recurrent spontaneous Oral contraceptives or hormone replacement Sepsis (< 1 month) Serious lung disease, including pneumonia (< 1 month) Abnormal pulmonary function Acute myocardial infarction Congestive heart failure (< 1 month) History of inflammatory bowel disease Medical patient at bed rest Age 61-74 Arthroscopic surgery Major open surgery (> 45 min) Laparoscopic surgery (> 45 min) Malignancy Confined to bed (> 72 hours) Immobilizing plaster cast Central venous access Age >= 75 History of VTE Family history of VTE Factor V Leiden Prothrombin [id number] Lupus anticoagulant Anticardiolipin antibodies Elevated serum homocysteine Heparin-induced thrombocytopenia Other congenital or acquired thrombophilia Stroke (< 1 month) Elective arthroplasty Hip, pelvis, or leg fracture Acute spinal cord injury (< 1 month) Prophylaxis Regimen Total Risk Factor Score Risk Level Prophylaxis Regimen 0-1 Low Early ambulation 2 Moderate Order ONE of the following: *Sequential Compression Device (SCD) *Heparin 5000 units SQ BID 3-4 Higher Order ONE of the following medications: *Heparin 5000 units SQ TID *Enoxaparin/Lovenox 40 mg SQ daily (WT < 150 kg, CrCl > 30 mL/min) *Enoxaparin/Lovenox 30 mg SQ daily (WT < 150 kg, CrCl > 10-29 mL/min) *Enoxaparin/Lovenox 30 mg SQ BID (WT < 150 kg, CrCl > 30 mL/min) AND/OR *Sequential Compression Device (SCD) 5 or more Highest Order ONE of the following medications: *Heparin 5000 units SQ TID (Preferred with Epidurals) *Enoxaparin/Lovenox 40 mg SQ daily (WT < 150 kg, CrCl > 30 mL/min) *Enoxaparin/Lovenox 30 mg SQ daily (WT < 150 kg, CrCl > 10-29 mL/min) *Enoxaparin/Lovenox 30 mg SQ BID (WT < 150 kg, CrCl > 30 mL/min) AND *Sequential Compression Device (SCD) Assessment and Plan Problem List: (1) Metabolic encephalopathy ICD Code: G93.41 - Metabolic encephalopathy Plan: Patient with underlying dementia and worrisome for acute infectious process source unknown Patient with temperature of 99.6 and with bilateral pleural effusions We will continue with IV antibiotics Bronchodilators as needed Patient has a long tobacco history (2) Pleural effusion ICD Code: J90 - Pleural effusion, not elsewhere classified Status: Acute (3) Dementia ICD Code: F03.90 - Unspecified dementia without behavioral disturbance Plan: This is chronic. Patient has acute change in mental status and will continue with empiric treatment for infectious process We will add Aricept Follow-up other organic causes including thyroid issues (4) Cerumen impaction ICD Code: H61.20 - Impacted cerumen, unspecified ear Plan: Continue medical treatment (5) Abdominal pain ICD Code: R10.9 - Unspecified abdominal pain Plan: Continue with bowel regimen Follow-up for bowel movements and p.o. intake (6) HTN (hypertension) ICD Code: I10 - Essential (primary) hypertension Plan: Uncontrolled, will add medications intravenously and adjust to p.o. as tolerated Physician Certification 2 Midnight Certification Type: Admission for Inpatient Services Order for Inpatient Services The services are ordered in accordance with Medicare regulations or non- Medicare payer requirements, as applicable. In the case of services not specified as inpatient-only, they are appropriately provided as inpatient services in accordance with the 2-midnight benchmark. Estimated LOS (days): 3 3 days is the estimated time the patient will need to remain in the hospital, assuming treatment plan goals are met and no additional complications. Post-Hospital Plan: Prachi Joshi MD Dec 03, 2017 13:21
[2017-12-03] MEDS ORDERED: PILL SPLITTER OTHER PRN (13:30)
[2017-12-03] MEDS ORDERED: BISACODYL EC 5 MG TABEC PO ONE (14:00)
[2017-12-03] MEDS: AZITHROMYCIN INJ 500 MG in SODIUM CHLOR 0.9% 250 ML INJ 250 ML IV SCH (15:07)
[2017-12-03 16:00] VITALS: BP 145/90; PULSE 86; RESP 15; TEMP 99; O2SAT 98
[2017-12-03] MEDS: CARBAMIDE PEROXIDE 6.5% OTIC SOLN 15 ML BTL EACH EAR SCH ×2 (17:31→20:24)
[2017-12-03] MEDS: cefTRIAXone INJ 2,000 MG in SODIUM CHLORIDE 0.9% INJ 100 ML IV SCH (17:37)
[2017-12-03 20:23] VITALS: BP 164/94; PULSE 102; RESP 18; TEMP 98; O2SAT 96
[2017-12-03] MEDS ORDERED: CYANOCOBALAMIN 1000 MCG/ML VIAL IM ONE (23:15)
[2017-12-04] VITALS: BP 169/92; PULSE 98; RESP 18; TEMP 97.8; O2SAT 95
[2017-12-04] MEDS: LACTATED RINGER'S 1000 ML INJ 1,000 ML IV SCH (04:51)
[2017-12-04 08:00] VITALS: BP 183/114; PULSE 87; RESP 20; TEMP 98; O2SAT 80
[2017-12-04] MEDS: SODIUM CHLORIDE 0.9% FLUSH 10 ML FLUSH IV FLUSH SCH ×2 (08:23→20:33)
[2017-12-04] MEDS: DOCUSATE SODIUM 50 MG/SENNA 8.6 MG TAB PO SCH ×2 (08:23→20:34)
[2017-12-04] MEDS: CARBAMIDE PEROXIDE 6.5% OTIC SOLN 15 ML BTL EACH EAR SCH ×2 (08:24→20:34)
[2017-12-04] MEDS ORDERED: amLODIPine BESYLATE 5 MG TAB PO SCH (09:00)
--- NOTE | 2017-12-04 09:10 | EKG ---
Date Performed: 12/02/2017 Time Performed: 19:41:11 PTAGE: 77 years EKG: Sinus rhythm NONSPECIFIC T-WAVE ABNORMALITY BORDERLINE ECG PREVIOUS TRACING : 02/04/2017 18.19 DOCTOR: Cristina Dewey Interpretating Date/Time 12/04/2017 09:07:27
[2017-12-04 09:30] VITALS: BP 170/99; PULSE 77; RESP 20; TEMP 96.8; O2SAT 100
--- NOTE | 2017-12-04 11:56 | HHI.PR ---
Subjective Remarks Patient seen and evaluated in follow-up for worsening dementia Requiring restraints overnight but very calm this morning Objective Vitals Vital Signs Date Time Temp Pulse Resp B/P (MAP) Pulse Ox O2 Delivery O2 Flow Rate FiO2 12/04/17 09:30 96.8 77 20 170/99 (122) 100 12/04/17 08:00 87 20 183/114 (137) 80 12/04/17 00:00 97.8 98 18 169/92 (117) 95 12/03/17 20:23 98.0 102 18 164/94 (117) 96 12/03/17 16:00 99.0 86 15 145/90 (108) 98 I/O 12/03/17 12/03/17 12/03/17 12/04/17 12/04/17 12/04/17 07:00 15:00 23:00 07:00 15:00 23:00 Intake Total 160 ml 1200 ml 0 ml Balance 160 ml 1200 ml 0 ml Intake Oral 60 ml 1200 ml 0 ml IV Total 100 ml # Voids 2 2 2 # Bowel Movements 0 2 2 Result Diagram: 12/03/17 0530 12/03/17 0530 Imaging Last Impressions Head CT 12/02/171909 Signed Impressions: Service Date/Time: November 20:59 - CONCLUSION: Atrophy and chronic appearing white matter changes Deon Durham MD Chest X-Ray 12/02/171909 Signed Impressions: Service Date/Time: November 19:58 - CONCLUSION: Mild streaky perihilar parenchymal opacities and slight interstitial prominence Deon Durham MD Chest CT 12/02/17 0000 Signed Impressions: Service Date/Time: November 21:03 - CONCLUSION: Emphysema and diffuse mild interstitial disease which appears at least partly chronic. Small bilateral pulmonary nodules which will need to be followed. Small bilateral effusions. Deon Durham MD Abdomen/Pelvis CT 12/02/17 0000 Signed Impressions: Service Date/Time: November 21:03 - CONCLUSION: Motion degraded exam grossly negative for acute intra-abdominal process. Deon Durham MD Objective Remarks GENERAL: This is a well-nourished, well-developed patient, confused CARDIOVASCULAR: Regular rate and rhythm without murmurs, gallops, or rubs. RESPIRATORY: Clear to auscultation. Breath sounds equal bilaterally. No wheezes , rales, or rhonchi. GASTROINTESTINAL: Abdomen soft, non-tender, nondistended. Normal active bowel sounds MUSCULOSKELETAL: Extremities without clubbing, cyanosis, or edema. NEURO: confused, calm today A/P Problem List: (1) Metabolic encephalopathy ICD Code: G93.41 - Metabolic encephalopathy Plan: Patient with underlying dementia and worrisome for acute infectious process source unknown Patient with temperature of 99.6, hypoxemia of 80% requiring O2 and with bilateral pleural effusions We will continue with IV antibiotics Bronchodilators as needed Patient has a long tobacco history (2) Dementia ICD Code: F03.90 - Unspecified dementia without behavioral disturbance Plan: This is chronic. Patient has acute change in mental status and will continue with empiric treatment for infectious process We will add Aricept Follow-up other organic causes including thyroid issues Clean ears add b12 (3) Cerumen impaction ICD Code: H61.20 - Impacted cerumen, unspecified ear Plan: Continue medical treatment (4) Abdominal pain ICD Code: R10.9 - Unspecified abdominal pain Plan: Appears resolved after 4 bowel movements Continue with bowel regimen Follow-up for bowel movements and p.o. intake (5) HTN (hypertension) ICD Code: I10 - Essential (primary) hypertension Plan: Uncontrolled, will add medications intravenously and adjust to p.o. as tolerated (6) Hypoxemia ICD Code: R09.02 - Hypoxemia Plan: may be fluid overloaded echo pending lasix iv x 1 Prachi Camejo MD Dec 04, 2017 11:56
[2017-12-04 12:00] VITALS: BP 160/94; PULSE 83; RESP 20; TEMP 96; O2SAT 99
[2017-12-04] MEDS ORDERED: FUROSEMIDE 20 MG/2 ML VIAL IV PUSH ONE (12:00)
[2017-12-04] MEDS: AZITHROMYCIN INJ 500 MG in SODIUM CHLOR 0.9% 250 ML INJ 250 ML IV SCH (12:52)
[2017-12-04] MEDS: cefTRIAXone INJ 2,000 MG in SODIUM CHLORIDE 0.9% INJ 100 ML IV SCH (15:33)
[2017-12-04] MEDS: ACETAMINOPHEN 325 MG TAB PO PRN (15:33)
[2017-12-04 16:00] VITALS: BP 153/97; PULSE 83; RESP 20; TEMP 96; O2SAT 100
[2017-12-04] MEDS ORDERED: hydrALAZINE HCL 25 MG TAB PO PRN (16:15)
[2017-12-04] MEDS ORDERED: KETOROLAC TROMETHAMINE 30 MG/ML (IVP) VIAL IV PUSH ONE (17:30)
[2017-12-04 20:00] VITALS: BP 137/78; PULSE 90; RESP 20; TEMP 96.8; O2SAT 98
[2017-12-04] MEDS ORDERED: QUEtiapine FUMARATE 100 MG TAB PO SCH (21:00)
[2017-12-04] MEDS ORDERED: QUEtiapine FUMARATE 25 MG TAB PO SCH (21:00)
[2017-12-05] VITALS (7 sets, daily range): BP systolic 109–174; BP diastolic 55–92; PULSE 67–82; RESP 18–20; TEMP 96–97.2; O2SAT 94–100
[2017-12-05] MEDS: DOCUSATE SODIUM 50 MG/SENNA 8.6 MG TAB PO SCH ×2 (08:18→20:57)
[2017-12-05] MEDS: amLODIPine BESYLATE 5 MG TAB PO SCH (08:18)
[2017-12-05] MEDS: SODIUM CHLORIDE 0.9% FLUSH 10 ML FLUSH IV FLUSH SCH ×2 (08:19→20:57)
[2017-12-05] MEDS: LOSARTAN 25 MG TAB PO SCH (08:19)
[2017-12-05] MEDS: CARBAMIDE PEROXIDE 6.5% OTIC SOLN 15 ML BTL EACH EAR SCH ×2 (08:20→22:21)
[2017-12-05] MEDS: TAMSULOSIN HCL 0.4 MG CAP PO SCH (08:23)
--- NOTE | 2017-12-05 08:48 | HHI.PR ---
Subjective Remarks Patient seen and evaluated today in follow-up for dementia. Still somewhat confused requiring restraints overnight. He did develop some urinary retention overnight of about a liter. Hypoxemia appears improved Objective Vitals Vital Signs Date Time Temp Pulse Resp B/P (MAP) Pulse Ox O2 Delivery O2 Flow Rate FiO2 12/05/17 04:00 12/05/17 00:00 96.5 67 20 151/80 (103) 98 12/04/17 20:15 Nasal Cannula 2.00 12/04/17 20:00 96.8 90 20 137/78 (97) 98 12/04/17 17:13 Nasal Cannula 2.00 12/04/17 16:00 96.0 83 20 153/97 (115) 100 12/04/17 12:00 96.0 83 20 160/94 (116) 99 12/04/17 09:30 96.8 77 20 170/99 (122) 100 I/O 12/04/17 12/04/17 12/04/17 12/05/17 12/05/17 12/05/17 07:00 15:00 23:00 07:00 15:00 23:00 Intake Total 0 ml 120 ml 90 ml 60 ml Balance 0 ml 120 ml 90 ml 60 ml Intake Oral 0 ml 120 ml 90 ml 60 ml Bladder Scan Volume Amount 999 ml # Voids 2 4 1 # Bowel Movements 2 1 0 Result Diagram: 12/03/17 0530 12/03/17 0530 Objective Remarks GENERAL: This is a well-nourished, well-developed patient, confused CARDIOVASCULAR: Regular rate and rhythm without murmurs, gallops, or rubs. RESPIRATORY: Clear to auscultation. Breath sounds equal bilaterally. No wheezes , rales, or rhonchi. GASTROINTESTINAL: Abdomen soft, non-tender, nondistended. Normal active bowel sounds MUSCULOSKELETAL: Extremities without clubbing, cyanosis, or edema. NEURO: confused, calm today A/P Problem List: (1) Metabolic encephalopathy ICD Code: G93.41 - Metabolic encephalopathy Plan: Patient with underlying dementia (2) Dementia ICD Code: F03.90 - Unspecified dementia without behavioral disturbance Plan: This is chronic. Patient has acute change in mental status and will continue with empiric treatment for infectious process We will add Aricept Follow-up other organic causes including thyroid issues Clean ears add b12 (3) Cerumen impaction ICD Code: H61.20 - Impacted cerumen, unspecified ear Plan: Continue medical treatment, irrigation Debrox (4) Abdominal pain ICD Code: R10.9 - Unspecified abdominal pain Plan: Appears resolved after bowel movements Continue with bowel regimen Follow-up for bowel movements and p.o. intake (5) HTN (hypertension) ICD Code: I10 - Essential (primary) hypertension Plan: Uncontrolled, will add medications intravenously and adjust to p.o. as tolerated (6) Hypoxemia ICD Code: R09.02 - Hypoxemia Plan: and worrisome for acute infectious process source unknown Patient with temperature of 99.6, hypoxemia of 80% requiring O2 and with bilateral pleural effusions We will continue with IV antibiotics Bronchodilators as needed Patient has a long tobacco history (7) Urinary retention ICD Code: R33.9 - Retention of urine, unspecified Plan: May be due to Seroquel Voiding trial with Flomax Hold Seroquel Discharge Planning will need placement Prachi Camejo MD Dec 05, 2017 08:48
[2017-12-05] MEDS ORDERED: DONEPEZIL HCL 5 MG TAB PO SCH (09:00)
[2017-12-05 09:13] LABS: BICARBONATE 21.7 MEQ/L (21.0-32.0); CALCIUM 8.5 MG/DL (8.5-10.1)
[2017-12-05] MEDS ORDERED: HALOPERIDOL 1 MG TAB PO SCH (09:30)
[2017-12-05 11:15] LABS: HEMATOCRIT 39.7 % (39.0-51.0); HEMOGLOBIN 13.5 GM/DL (13.0-17.0); MEAN CELL VOLUME 94.1 FL (80.0-100.0); MEAN PLATELET VOLUME 8.1 FL (7.0-11.0); PLATELET COUNT 120 TH/MM3 (150-450); RED BLOOD COUNT 4.21 MIL/MM3 (4.50-5.90); RED CELL DISTRIBUTION WIDTH 13.5 % (11.6-17.2)
[2017-12-05 11:37] LABS: BANDS 1 % (0-6); LYMPHOCYTES 7 % (9-44); MONOCYTES 5 % (0-8); NEUTROPHIL # MANUAL DIFF 7.6 TH/MM3 (1.8-7.7); POLYS (SEG NEUTROPHILS) 83 % (16-70)
[2017-12-05 11:42] LABS: ROULEAUX PRESENT (NORMAL)
[2017-12-05] MEDS: AZITHROMYCIN INJ 500 MG in SODIUM CHLOR 0.9% 250 ML INJ 250 ML IV SCH (13:04)
[2017-12-05] MEDS: cefTRIAXone INJ 2,000 MG in SODIUM CHLORIDE 0.9% INJ 100 ML IV SCH (14:46)
[2017-12-05] MEDS ORDERED: HALOPERIDOL LACTATE 5 MG/ML AMP IM ONE (16:45)
--- NOTE | 2017-12-05 17:52 | ECHRPT ---
Indication: SHORTNESS OF BREATH CONCLUSIONS BP: 160 / 94 HR: 83 Rhythm: Sinus MEASUREMENTS (Male / Female) Normal Values Technical Quality:Fair 2D ECHO LV Diastolic Diameter PLAX 5.0 cm 4.2 - 5.9 / 3.9 - 5.3 cm LV Systolic Diameter PLAX 4.8 cm IVS Diastolic Thickness 0.9 cm 0.6 - 1.0 / 0.6 - 0.9 cm LVPW Diastolic Thickness 0.9 cm 0.6 - 1.0 / 0.6 - 0.9 cm LV Relative Wall Thickness 0.4 RV Internal Dim ED PLAX 2.8 cm LVOT Diameter 2.1 cm Aortic Root Diameter 3.1 cm LA Systolic Diameter LX 3.5 cm 3.0 - 4.0 / 2.7 - 3.8 cm M-MODE AV Cusp Separation MM 1.7 cm DOPPLER AV Peak Velocity 77.2 cm/s AV Peak Gradient 2.4 mmHg AV Mean Gradient 2.0 mmHg AV Velocity Time Integral 12.4 cm LVOT Peak Velocity 39.9 cm/s LVOT Peak Gradient 0.6 mmHg LVOT Velocity Time Integral 7.3 cm AV Area Cont Eq vti 2.0 cm AV Area Cont Eq pk 1.8 cm Mitral E Point Velocity 62.2 cm/s Mitral A Point Velocity 46.4 cm/s Mitral E to A Ratio 1.3 LV E' Lateral Velocity 6.9 cm/s Mitral E to LV E' Lateral Ratio 9.0 LV E' Septal Velocity 4.3 cm/s Mitral E to LV E' Septal Ratio 14.5 TR Peak Velocity 308.0 cm/s TR Peak Gradient 37.9 mmHg Right Atrial Pressure 10.0 mmHg Pulmonary Artery Systolic Pressu 47.9 mmHg Right Ventricular Systolic Press 47.9 mmHg PV Peak Velocity 35.3 cm/s PV Peak Gradient 0.5 mmHg FINDINGS LEFT VENTRICLE Normal left ventricular size. Wall thickness is normal. The left ventricular systolic function is severely reduced with an estimated ejection fraction less than 20%. There are findings consistent with dilated cardiomyopathy. RIGHT VENTRICLE The right ventricle is mildly dilated. The right ventricular systoilc function is moderately decreased. LEFT ATRIUM The left atrial size is moderately dilated. RIGHT ATRIUM The right atrial size is moderately dilated. ATRIAL SEPTUM No atrial level shunt is demonstrated by color flow Doppler interrogation. AORTA The aortic root and proximal ascending aorta are not well visualized. MITRAL VALVE Moderate thickening of the mitral valve leaflets. AORTIC VALVE Aortic valve sclerosis is present. TRICUSPID VALVE There is mild tricuspid valve regurgitation. The estimated pulmonary arterial pressure is 47.9 mmHg. Cristina Dewey MD (Electronically Signed) Final Date:05 December 2017 17:51
[2017-12-05] MEDS: ACETAMINOPHEN 325 MG TAB PO PRN (18:31)
[2017-12-05] MEDS ORDERED: HALOPERIDOL LACTATE 5 MG/ML AMP IM PRN (18:45)
[2017-12-05] MEDS: HALOPERIDOL 5 MG TAB PO SCH (20:57)
[2017-12-05] MEDS ORDERED: QUEtiapine FUMARATE 25 MG TAB PO SCH (21:00)
[2017-12-06] VITALS (8 sets, daily range): BP systolic 147–187; BP diastolic 68–84; PULSE 69–95; RESP 18–22; TEMP 97–98.4; O2SAT 92–98
[2017-12-06] MEDS: CEFUROXIME AXETIL 500 MG TAB PO SCH ×2 (08:23→19:26)
[2017-12-06] MEDS: LOSARTAN 25 MG TAB PO SCH (08:23)
[2017-12-06] MEDS: HALOPERIDOL 5 MG TAB PO SCH ×2 (08:23→19:26)
[2017-12-06] MEDS: DOCUSATE SODIUM 50 MG/SENNA 8.6 MG TAB PO SCH ×2 (08:23→19:26)
[2017-12-06] MEDS: TAMSULOSIN HCL 0.4 MG CAP PO SCH (08:23)
[2017-12-06] MEDS: SODIUM CHLORIDE 0.9% FLUSH 10 ML FLUSH IV FLUSH SCH ×2 (08:24→19:26)
[2017-12-06] MEDS: CARBAMIDE PEROXIDE 6.5% OTIC SOLN 15 ML BTL EACH EAR SCH ×2 (08:24→19:27)
[2017-12-06] MEDS: amLODIPine BESYLATE 5 MG TAB PO SCH (08:24)
--- NOTE | 2017-12-06 12:39 | HHI.PR ---
Subjective Remarks Patient is a 77-year-old today seen in follow-up for dementia with apparent psychosis requiring Haldol. No further hypoxemia. Psych consult pending Objective Vitals Vital Signs Date Time Temp Pulse Resp B/P (MAP) Pulse Ox O2 Delivery O2 Flow Rate FiO2 12/06/17 08:41 92 21 12/06/17 08:16 187/84 (118) 12/06/17 08:00 98.4 69 18 187/84 (118) 95 12/06/17 00:00 97.0 72 22 156/70 (98) 93 12/05/17 20:10 97 Nasal Cannula 2.00 12/05/17 20:00 97.2 82 18 109/55 (73) 94 12/05/17 16:00 96.6 75 18 114/58 (76) 96 I/O 12/05/17 12/05/17 12/05/17 12/06/17 12/06/17 12/06/17 06:59 14:59 22:59 06:59 14:59 22:59 Intake Total 60 ml 250 ml 340 ml 120 ml 120 ml Output Total 2031 ml 300 ml Balance 60 ml 250 ml -1691 ml -180 ml 120 ml Intake Oral 60 ml 240 ml 120 ml 120 ml IV Total 250 ml 100 ml Output Urine Total 2031 ml 300 ml Bladder Scan Volume Amount 999 ml # Voids 1 # Bowel Movements 0 0 Result Diagram: 12/05/17 1103 12/05/17 0832 Objective Remarks GENERAL: This is a well-nourished, well-developed patient, confused CARDIOVASCULAR: Regular rate and rhythm without murmurs, gallops, or rubs. RESPIRATORY: Clear to auscultation. Breath sounds equal bilaterally. No wheezes , rales, or rhonchi. GASTROINTESTINAL: Abdomen soft, non-tender, nondistended. Normal active bowel sounds MUSCULOSKELETAL: Extremities without clubbing, cyanosis, or edema. NEURO: confused, calm at the moment A/P Problem List: (1) Metabolic encephalopathy ICD Code: G93.41 - Metabolic encephalopathy Plan: Patient with underlying dementia Appears resolved (2) Dementia ICD Code: F03.90 - Unspecified dementia without behavioral disturbance Plan: Appears to have some psychotic episodes Patient has acute change in mental status and will continue with empiric treatment for infectious process We will add Aricept Improved with Haldol Psychiatry consult appreciated (3) Cerumen impaction ICD Code: H61.20 - Impacted cerumen, unspecified ear Plan: Resolved after irrigation (4) Abdominal pain ICD Code: R10.9 - Unspecified abdominal pain Plan: Appears resolved after bowel movements Continue with bowel regimen Follow-up for bowel movements and p.o. intake (5) HTN (hypertension) ICD Code: I10 - Essential (primary) hypertension Plan: Uncontrolled, will add medications intravenously and adjust to p.o. as tolerated Blood pressure appears to be elevated related to agitation Hydralazine as needed (6) Hypoxemia ICD Code: R09.02 - Hypoxemia (7) Urinary retention ICD Code: R33.9 - Retention of urine, unspecified Plan: We will maintain Thornton for now. Consider voiding trial when clinically stable May need urological outpatient follow-up Discharge Planning Psych consult pending Prachi Camejo MD Dec 06, 2017 12:39
--- NOTE | 2017-12-06 12:53 | PD.PSY.CON ---
Provisional Diagnosis Admission Date Dec 03, 2017 at 13:21 Diamond I. Delirium due to underlying medical conditions, dementia History of Present Illness Service Psychiatry Consult Requested By Medicine Reason for Consult Agitation Primary Care Physician Unknown HPI The patient is a 77-year-old man, domiciled with a roommate, with psychiatric history of dementia, who has been brought to the emergency room by his roommate who says that he wandered from home for the first time. He has had dementia for some time but has been otherwise pretty sedentary and sleeping all day. Unfortunately he did water away from the home and was found by concern neighbors who called 911. He was pulling his pants down in the yard. Patient says that he has no problems however he is quite confused with only complain of abdominal pain. Patient's roommate said he did have an abdominal pain over the last couple of days and he did buy some aspirin and some gas medication without improvement.nt patient has had poor personal hygiene and not been able to be involved in his personal care. He has had quite a bit of wax in his ears per his roommate and has had increased difficulty hearing. There have been no fevers and chills however the patient appears to have on imaging and some pleural effusions. On exam he has crackles with lower extremity edema +1 and the patient has a low-grade temperature. Patient is being evaluated for acute infectious process and advanced age coinciding with a change in mental status. On psychiatric evaluation today the patient the patient is restrained in 2 points. He is very hard of hearing which made it communication quite limited, reports feeling much better. He reports been in a good mood and in a good spirits. He reports good appetite, good level of energy, he is specifically say "I like the food here". Patient is oriented in person, but completely disoriented in time and place. Patient does not really know the reason he is in the hospital. He denies distress, denies pain, denies depression, denies suicidal enemas ideation, he denies visual and auditory hallucinations. Patient does not seem to be in acute distress, he is no agitated or aggressive. Information given by the patient does not seem to be reliable, but he does denies previous psychiatric history, denies suicidal attempts, and denies the use of substances. Review of Systems Constitutional: DENIES: Diaphoretic episodes, Fatigue, Fever, Weight gain, Weight loss, Chills, Dizziness, Change in appetite, Night Sweats Endocrine: DENIES: Heat/cold intolerance, Polydipsia, Polyuria, Polyphagia Eyes: DENIES: Blurred vision, Diplopia, Eye inflammation, Eye pain, Vision loss , Photosensitivity, Double Vision Ears, nose, mouth, throat: DENIES: Tinnitus, Hearing loss, Vertigo, Nasal discharge, Oral lesions, Throat pain, Hoarseness, Ear Pain, Running Nose, Epistaxis, Sinus Pain, Toothache, Odynophagia Respiratory: DENIES: Apneas, Cough, Snoring, Wheezing, Hemoptysis, Sputum production, Shortness of breath Genitourinary: DENIES: Sexual dysfunction, Urinary frequency, Urinary incontinence, Urgency, Hematuria, Dysuria, Nocturia, Penile Discharge, Testicular Pain, Testicular Swelling Musculoskeletal: DENIES: Joint pain, Muscle aches, Stiffness, Joint Swelling, Back pain, Neck pain Integumentary: DENIES: Abnormal pigmentation, Nail changes, Pruritus, Rash Hematologic/lymphatic: DENIES: Bruising, Lymphadenopathy Immunologic/allergic: DENIES: Eczema, Urticaria Neurologic: DENIES: Abnormal gait, Headache, Localized weakness, Paresthesias, Seizures, Speech Problems, Tremor, Poor Balance Psychiatric: DENIES: Anxiety, Confusion, Mood changes, Depression, Hallucinations, Agitation, Suicidal Ideation, Homicidal Ideation, Delusions Past Family Social History Coded Allergies: No Known Allergies (Unverified , 02/04/17) Active Scripts Lisinopril (Lisinopril) 10 Mg Tab, 10 MG PO DAILY for Blood Pressure Management , #30 TAB Prov:Eriberto Dalton 02/05/17 Current Medications Medications (Trade) Dose Ordered Sig/Isa Route Start Time Stop Time Status Last Admin (NS Flush) 2 ml UNSCH PRN IV FLUSH 12/02/17 22:15 (NS Flush) 2 ml BID IV FLUSH 12/03/17 09:00 12/06/17 08:24 (Tylenol) 650 mg Q6H PRN PO 12/02/17 22:15 12/05/17 18:31 (Estefany-Colace) 1 tab BID PO 12/03/17 09:00 12/06/17 08:23 (Milk Of Magnesia Liq) 30 ml Q12H PRN PO 12/02/17 22:15 (Senokot) 17.2 mg Q12H PRN PO 12/02/17 22:15 (Dulcolax Supp) 10 mg DAILY PRN RECTAL 12/02/17 22:15 (Lactulose Liq) 30 ml DAILY PRN PO 12/02/17 22:15 (Debrox 6.5% Otic) 5 drop Q12HR EACH EAR 12/03/17 14:00 12/06/17 08:24 (Pill Splitter) 1 ea UNSCH PRN OTHER 12/03/17 13:30 (Norvasc) 10 mg DAILY PO 12/05/17 09:00 12/06/17 08:24 (Cozaar) 25 mg DAILY PO 12/05/17 09:00 12/06/17 08:23 (Apresoline) 25 mg Q8H PRN PO 12/04/17 16:15 (Flomax) 0.4 mg DAILY PO 12/05/17 09:00 12/06/17 08:23 (Haldol) 5 mg BID PO 12/05/17 21:00 12/06/17 08:23 (Haldol Inj) 5 mg Q4H PRN IM 12/05/17 18:45 (Ceftin) 500 mg Q12HR PO 12/06/17 09:00 12/06/17 08:23 Physical Exam Vital Signs Vital Signs Date Time Temp Pulse Resp B/P (MAP) Pulse Ox O2 Delivery O2 Flow Rate FiO2 12/06/17 08:41 92 21 12/06/17 08:16 187/84 (118) 12/06/17 08:00 98.4 69 18 12/05/17 20:10 Nasal Cannula 2.00 I/O 12/06/17 12/06/17 12/07/17 08:00 16:00 00:00 Intake Total 240 ml Output Total 300 ml Balance -60 ml Lab Results Date/Time Source Procedure Growth Status 12/02/17 19:30 Blood Peripheral Aerobic Blood Culture - Preliminary NO GROWTH IN 4 DAYS Resulted 12/02/17 19:30 Blood Peripheral Anaerobic Blood Culture - Preliminary NO GROWTH IN 4 DAYS Resulted Mental Status Examination Appearance: Appropriate Consciousness: Alert Orientation: Person Motor Activity: Normal gait, Abnormal gait Speech: Slow, Incoherent Language: Adequate Fund of Knowledge: Inadequate Attention and Concentration: Inadequate Memory: Impaired Mood: Appropriate Affect: Appropriate Thought Process & Associations: Disorganized Thought Content: Bizarre thinking Hallucination Type: None Delusion Type: None Suicidal Ideation: No Suicidal Plan: No Suicidal Intention: No Homicidal Ideation: No Homicidal Plan: No Homicidal Intention: No Insight: Fair Judgment: Impulsive Assessment & Plan Problem List: (1) Dementia ICD Codes: F03.90 - Unspecified dementia without behavioral disturbance Assessment & Plan: Psychiatric evaluation I find a patient that is demented, but at this moment does not present any neuropsychiatric symptoms that require an immediate psychiatric intervention. Patient has reportedly been agitated, disorganized, restrained, most probably secondary to delirium related with underlying medical conditions, but he does not seem to be delirious at this moment. However, the patient does have high risk to develop episode of delirium due to his age, hearing impairment, multiple medical conditions, hospitalization and others. I agree with discontinuing Seroquel due to his anticholinergic properties and his impact in urinary incontinence. Haldol 2 mg twice daily can be used. Haldol 2 mg IM/IV every 4 hours for severe aggressive behavior and agitation. Hold Haldol if QTC is higher than 480. He does not meet criteria for involuntary psychiatric admission. Patient does not have decision-making capacity at this moment to participate in discharge planning. Assessment & Plan Estimated LOS: Ze Leblanc MD Dec 06, 2017 12:53
--- NOTE | 2017-12-06 20:44 | MB ---
cc: Sincere Huggins MD, PhD DATE: 12/06/2017 REASON FOR CONSULTATION: Rule out dementia. HISTORY OF PRESENT ILLNESS: Mr. Gonzales is a 77-year-old man who was brought to the ER by his roommate who found that he was wandering from home. He has had a long history of dementia, but has been fairly sedentary. He has been somewhat agitated. CURRENT MEDICATIONS: Ceftin 500 mg b.i.d., Haldol 5 mg b.i.d., Norvasc 10 mg daily, Flomax 0.4 mg daily, Apresoline 25 mg as needed. NEUROLOGIC EXAMINATION: The patient is alert, disoriented to date and place, but is oriented to self. Has poor recall. He has anomia. He makes paraphasic errors with his speech. He does follow simple commands. He can tell me remote memory fairly well. Cranial nerves intact. Motor exam, normal strength and tone in all groups. There is no drift. Reflexes are symmetric. DIAGNOSTIC DATA: CT of the brain shows atrophy and chronic changes, no acute change. Abdominal CT is negative for acute process. LABORATORY DATA: White count is 9000, hemoglobin 13.5, hematocrit 39%, platelets 120,000. Sodium is 139, potassium 4.2, chloride 108, CO2 of 22, BUN is 27, creatinine is 2, GFR is 32. 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 RECOMMENDATIONS: Give the patient a trial of Aricept 5 mg daily. Sincere Huggins MD, PhD JEANETTE/SB , 07:43 PM , 08:43 PM
[2017-12-07] VITALS (8 sets, daily range): BP systolic 109–155; BP diastolic 64–82; PULSE 64–84; RESP 18–20; TEMP 96–98.4; O2SAT 95–100
[2017-12-07] MEDS: DOCUSATE SODIUM 50 MG/SENNA 8.6 MG TAB PO SCH ×2 (08:54→21:44)
[2017-12-07] MEDS: DONEPEZIL HCL 5 MG TAB PO SCH (08:54)
[2017-12-07] MEDS: LOSARTAN 25 MG TAB PO SCH (08:54)
[2017-12-07] MEDS: amLODIPine BESYLATE 5 MG TAB PO SCH (08:54)
[2017-12-07] MEDS: TAMSULOSIN HCL 0.4 MG CAP PO SCH (08:54)
[2017-12-07] MEDS: CEFUROXIME AXETIL 500 MG TAB PO SCH (08:54)
[2017-12-07] MEDS: HALOPERIDOL 5 MG TAB PO SCH (08:57)
[2017-12-07] MEDS: CARBAMIDE PEROXIDE 6.5% OTIC SOLN 15 ML BTL EACH EAR SCH (08:58)
[2017-12-07] MEDS: SODIUM CHLORIDE 0.9% FLUSH 10 ML FLUSH IV FLUSH SCH ×2 (09:02→21:44)
--- NOTE | 2017-12-07 11:18 | HHI.PR ---
Subjective Remarks Patient seen and examined today for follow-up on altered mental status,, psychosis. Patient appears to be medically quite well considering he will not follow commands or converse. Will need to hold Haldol and monitor clinically. Objective Vitals Vital Signs Date Time Temp Pulse Resp B/P (MAP) Pulse Ox O2 Delivery O2 Flow Rate FiO2 12/07/17 07:41 97.3 81 20 155/70 (98) 95 12/07/17 00:00 98.4 79 18 137/69 (91) 98 12/06/17 20:10 96 21 12/06/17 20:00 97.8 95 18 164/84 (110) 96 12/06/17 15:42 97.8 72 20 168/77 (107) 95 12/06/17 12:00 98.4 72 18 147/68 (94) 98 I/O 12/06/17 12/06/17 12/06/17 12/07/17 12/07/17 12/07/17 07:00 15:00 23:00 07:00 15:00 23:00 Intake Total 120 ml 360 ml 420 ml 120 ml Output Total 300 ml 600 ml 850 ml 500 ml Balance -180 ml -240 ml -430 ml -500 ml 120 ml Intake Oral 120 ml 360 ml 420 ml 120 ml Output Urine Total 300 ml 600 ml 850 ml 500 ml Bladder Scan Volume Amount 999 ml # Bowel Movements 0 0 0 0 Result Diagram: 12/05/17 1103 12/05/17 0832 Objective Remarks GENERAL: Well-developed, cachectic, in no acute distress. Sedated, unable to obtain orientation HEENT: Head is normocephalic without any lesions or masses noted. Facial features are symmetric. NECK: Supple without any masses. Trachea midline no deviation. No JVD, CARDIAC: Regular rhythm, regular rate. S1/S2 are heard. No murmurs gallops or rubs. LUNGS: Clear to auscultation bilaterally. No wheeze, rhonchi or rales. No use of accessory muscles on inspiration or expiration. ABDOMEN: Soft, nontender. Nondistended. Bowel sounds heard in all 4 quadrants. No organomegaly or masses. Negative rebound, negative guarding, Thornton in place EXTREMITIES: No edema, pulses are equal bilaterally. No cyanosis or clubbing NEUROLOGY: Unable to obtain mood and affect or cranial nerve evaluation. Urinary Catheter: Yes Assessment to: Continue Thornton insert reason: Obstruction/Retention Vascular Central Line Catheter: No A/P Assessment and Plan Metabolic encephalopathy in a patient with known underlying dementia -Patient with underlying dementia, possible psychosis -Infectious source was not identified, discontinue antibiotics -Patient in 2 point restraint -Seroquel discontinued due to possible urinary retention -Patient continued on Haldol p.o. twice daily and Haldol as needed -Neurology consulted who recommended trial of Aricept -Psychiatry evaluated the patient who agreed with discontinuation of Seroquel and recommended Haldol -Patient appears to be sedated secondary Haldol, will consult with psychiatry and possible start Geodon Hypoxemia -CT scan does indicate emphysema with interstitial disease, small bilateral pulmonary nodules, small bilateral effusions -Status post mild diuresis -Patient no longer requiring O2 supplementation -Echocardiogram indicated normal left ventricular size, severely reduced left ventricular function with ejection fraction less than 20%, consistent with dilated cardiomyopathy, PA peak pressure 47.9 mmhg -Patient will require short-term outpatient follow-up on lung nodules Severe cardiomyopathy, possibly dilated cardiomyopathy with ejection fraction less than 20% -Initial troponins were negative on presentation -Patient will likely require AICD/LifeVest, -Consult cardiology for recommendations Chronic kidney disease stage III -Mild worsening secondary to diuresis -Monitor renal function -Avoid nephrotoxins urinary retention -Could be secondary to Seroquel use -Maintain Thornton catheter and start bladder training -Continue Flomax Cerumen impaction -Resolved after irrigation -Discontinue Debrox Abdominal pain -Unspecified abdominal pain -Appears resolved after bowel movements -Continue with bowel regimen Hypertension, underlying pulmonary hypertension -Blood pressure appears to be elevated during times of agitation -Start Coreg 3.125 mg twice daily -Norvasc 10 mg daily -Losartan 25 mg daily -Apresoline as needed DVT prevention -Sequential compression devices Discharge Planning Discharge planning complicated currently. Patient will likely require placement , however due to underlying psychological/neurological condition patient unable be discharged at this time Eriberto Dalton Dec 07, 2017 11:18
[2017-12-07] MEDS: CARVEDILOL 3.125 MG TAB PO SCH ×2 (12:02→21:44)
[2017-12-07] MEDS ORDERED: ASPIRIN EC 81 MG TABEC PO SCH (15:15)
--- NOTE | 2017-12-07 15:45 | MB ---
cc: Rubens Hopper MD, Hammad M MD DATE: 12/07/2017 I have reviewed the chart. The patient was spoken with. HISTORY OF PRESENT ILLNESS: The patient has a longstanding history of dementia which has worsened. He was admitted this hospital stay pulling his pants down in the yard and was very confused. 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 The patient's history is gotten from the chart as he is unable to give a history, though he is awake, alert and comfortable. PAST MEDICAL HISTORY: He has hypertension, hyperlipidemia, dementia, COPD, appendectomy and tobacco abuse. ALLERGIES: NONE. REVIEW OF SYSTEMS: I cannot get review of systems LABORATORY: EKG showed sinus rhythm with nonspecific T-wave changes. Chest x-ray showed COPD with bilateral nodules. Head CT showed chronic atrophy. Abdominal and pelvic CT showed motion artifact, but no acute intraabdominal process. Blood cultures negative. CBC essentially normal with minimally decreased platelet count on 12/05/2017. PT and PTT normal. Potassium 4.2, creatinine has increased to 2.0. TSH level was normal. Troponin negative. Toxicology negative. Urinalysis negative. PHYSICAL EXAMINATION: GENERAL: On exam, he is only alert to name. VITAL SIGNS: He has been intermittently hypertensive, but now he is afebrile. Vital signs are stable. HEAD, EYES, EARS, NOSE AND THROAT: There are no xanthelasma and oropharyngeal mucosa normal. CHEST: With decreased breath sounds, but clear. JVD normal. CARDIOVASCULAR: S1, S2. No murmurs or gallops. ABDOMEN: Benign. EXTREMITIES: Show no cyanosis, clubbing, or edema. PULSES: Carotids without bruits. Radials 1-2+. Femorals not felt through a diaper. Pedals trace. NEUROLOGIC: He is not ambulated. Echocardiogram showed 20% left ventricular ejection fraction with right ventricular dysfunction. PROBLEMS: 1. Cardiomyopathy. 2. Dementia. 3. Tobacco abuse. RECOMMENDATIONS: 1. The patient has been started on carvedilol which is certainly appropriate. He is on losartan and amlodipine, which I would continue. 2. Would recommend to the primary service baby aspirin, which I will start. 3. The patient is in no respiratory distress. He is not a candidate for defibrillator vest or implantable defibrillated nor a candidate for any invasive procedural workup. His prognosis overall is very poor based on his present medical condition. At this point in time, I have nothing more to add except the above recommendations. I will defer the management to the hospitalist service. MD FORREST Corey/NETTE , 03:14 PM , 03:44 PM
[2017-12-07] MEDS: ZIPRASIDONE HCL 20 MG CAP PO SCH (16:59)
[2017-12-08] VITALS (9 sets, daily range): BP systolic 119–171; BP diastolic 62–97; PULSE 56–72; RESP 18–20; TEMP 94–98.4; O2SAT 94–99
[2017-12-08 06:04] LABS: BASOPHIL % 0.3 % (0.0-2.0); EOSINOPHIL # 0.5 TH/MM3 (0-0.4); EOSINOPHIL % 7.5 % (0.0-4.0); HEMATOCRIT 40.2 % (39.0-51.0); HEMOGLOBIN 13.4 GM/DL (13.0-17.0); LYMPH % 10.1 % (9.0-44.0); LYMPHOCYTE # 0.7 TH/MM3 (1.0-4.8); MEAN CELL VOLUME 94.6 FL (80.0-100.0); MEAN CORPUSCULAR HEMOGLOBIN 31.5 PG (27.0-34.0); MEAN CORPUSCULAR HGB CONC 33.3 % (32.0-36.0); MONO % 6.3 % (0.0-8.0); MONOCYTE # 0.4 TH/MM3 (0-0.9); NEUT % 75.8 % (16.0-70.0); PLATELET COUNT 160 TH/MM3 (150-450); RED BLOOD COUNT 4.24 MIL/MM3 (4.50-5.90); RED CELL DISTRIBUTION WIDTH 13.5 % (11.6-17.2); WHITE BLOOD COUNT 6.6 TH/MM3 (4.0-11.0)
[2017-12-08 06:15] LABS: BICARBONATE 27.1 MEQ/L (21.0-32.0); CALCIUM 8.6 MG/DL (8.5-10.1)
[2017-12-08 06:36] LABS: CREATININE 0.85 MG/DL (0.60-1.30)
--- NOTE | 2017-12-08 07:44 | HHI.PR ---
Subjective Remarks Patient seen and examined today for follow-up on altered mental status, dementia , psychosis. Patient is much improved today he is more alert. He is talking. No indications of any worsening throughout the night. Blood pressure mildly elevated. Patient remains afebrile. Objective Vitals Vital Signs Date Time Temp Pulse Resp B/P (MAP) Pulse Ox O2 Delivery O2 Flow Rate FiO2 12/08/17 04:00 96.5 69 20 161/88 (112) 98 Manual Cuff/Auscultation Automatic Cuff 12/08/17 00:24 140/82 (101) 12/08/17 00:00 96.7 72 20 171/97 (121) 98 Manual Cuff/Auscultation 12/07/17 20:05 96 21 12/07/17 20:00 96.0 64 20 143/81 (101) 99 12/07/17 18:11 97.1 78 20 109/64 (79) 96 12/07/17 15:38 96.1 84 18 136/77 (96) 100 12/07/17 11:43 97.1 83 20 137/82 (100) 100 12/07/17 07:41 97.3 81 20 155/70 (98) 95 I/O 12/07/17 12/07/17 12/07/17 12/08/17 12/08/17 12/08/17 07:00 15:00 23:00 07:00 15:00 23:00 Intake Total 120 ml 300 ml 60 ml Output Total 500 ml 400 ml 700 ml Balance -500 ml 120 ml -100 ml -640 ml Intake Oral 120 ml 300 ml 60 ml Output Urine Total 500 ml 400 ml 700 ml # Bowel Movements 0 0 Result Diagram: 12/08/17 0545 12/08/17 0545 Objective Remarks GENERAL: Well-developed, cachectic, in no acute distress. Patient more alert, answering questions appropriately. Following commands HEENT: Head is normocephalic without any lesions or masses noted. Facial features are symmetric. NECK: Supple without any masses. Trachea midline no deviation. No JVD, CARDIAC: Regular rhythm, regular rate. S1/S2 are heard. No murmurs gallops or rubs. LUNGS: Mild wheeze and rhonchi noted bilaterally. No rales. No use of accessory muscles on inspiration or expiration. ABDOMEN: Soft, nontender. Nondistended. Bowel sounds heard in all 4 quadrants. No organomegaly or masses. Negative rebound, negative guarding, Thornton in place EXTREMITIES: No edema, pulses are equal bilaterally. No cyanosis or clubbing Urinary Catheter: Yes Assessment to: Continue Thornton insert reason: Obstruction/Retention Vascular Central Line Catheter: No A/P Assessment and Plan Metabolic encephalopathy in a patient with known underlying dementia, improving -Patient with underlying dementia, possible psychosis -Infectious source was not identified, discontinue antibiotics -Patient in 2 point restraint, please removed today and evaluated if we need to continue use -Seroquel discontinued due to possible urinary retention -Neurology consulted who recommended trial of Aricept -Psychiatry evaluated the patient who agreed with discontinuation of Seroquel and recommended Haldol -Patient appears to be sedated secondary Haldol, discontinue Haldol, start Geodon 20 mg p.o. twice daily -Patient now sedated after using Geodon, will hold that at this time. -Speech therapy evaluated the patient and made him pured diet. 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 indicate emphysema with interstitial disease, small bilateral pulmonary nodules, small bilateral effusions -Status post mild diuresis -Patient no longer requiring O2 supplementation -Echocardiogram indicated normal left ventricular size, severely reduced left ventricular function with ejection fraction less than 20%, consistent with dilated cardiomyopathy, PA peak pressure 47.9 mmhg -Patient will require short-term outpatient follow-up on lung nodules -Incentive spirometry Severe cardiomyopathy, possibly dilated cardiomyopathy with ejection fraction less than 20% -Initial troponins were negative on presentation -Patient will likely require AICD/LifeVest, -Consult cardiology for recommendations, who agreed with Coreg, Norvasc, losartan. Added aspirin -Per cardiology, he is not a candidate for defibrillator vest or implantable defibrillated nor a candidate for any invasive procedural workup. Chronic kidney disease stage III, significantly improved -Mild worsening secondary to diuresis -Monitor renal function -Avoid nephrotoxins urinary retention -Could be secondary to Seroquel use -Thornton catheter has been discontinued -Continue Flomax Cerumen impaction -Resolved after irrigation -Discontinue Debrox Abdominal pain -Unspecified abdominal pain -Appears resolved after bowel movements -Continue with bowel regimen Hypertension, underlying pulmonary hypertension -Blood pressure appears to be elevated during times of agitation -Coreg 3.125 mg twice daily -Norvasc 10 mg daily -Losartan 25 mg daily -Apresoline as needed DVT prevention -Sequential compression devices Discharge Planning Case management for discharge planning, will need rehab placement. [id number] signed and on the chart Eriberto Dalton Dec 08, 2017 07:44
[2017-12-08] MEDS: SODIUM CHLORIDE 0.9% FLUSH 10 ML FLUSH IV FLUSH SCH ×2 (07:53→21:00)
[2017-12-08] MEDS: amLODIPine BESYLATE 5 MG TAB PO SCH (07:54)
[2017-12-08] MEDS: CARVEDILOL 3.125 MG TAB PO SCH ×2 (07:55→21:51)
[2017-12-08] MEDS: LOSARTAN 25 MG TAB PO SCH (07:56)
[2017-12-08] MEDS: DONEPEZIL HCL 5 MG TAB PO SCH (07:57)
[2017-12-08] MEDS: ZIPRASIDONE HCL 20 MG CAP PO SCH (07:57)
[2017-12-08] MEDS: DOCUSATE SODIUM 50 MG/SENNA 8.6 MG TAB PO SCH ×2 (08:01→21:51)
[2017-12-08] MEDS: TAMSULOSIN HCL 0.4 MG CAP PO SCH (08:08)
[2017-12-08] MEDS: ASPIRIN 81 MG CHEW TAB CHEW SCH (08:11)
--- NOTE | 2017-12-08 16:38 | HHI.PR ---
Review/Management Diagnosis dementia--continue aricept Diagnosis/Plan: Subjective Subjective Comments No acute events reported Active Medications Current Medications Medications (Trade) Dose Ordered Sig/Isa Route Start Time Stop Time Status Last Admin (NS Flush) 2 ml UNSCH PRN IV FLUSH 12/02/17 22:15 (NS Flush) 2 ml BID IV FLUSH 12/03/17 09:00 12/07/17 21:44 (Tylenol) 650 mg Q6H PRN PO 12/02/17 22:15 12/05/17 18:31 (Estefany-Colace) 1 tab BID PO 12/03/17 09:00 12/08/17 08:01 (Milk Of Magnesia Liq) 30 ml Q12H PRN PO 12/02/17 22:15 (Senokot) 17.2 mg Q12H PRN PO 12/02/17 22:15 (Dulcolax Supp) 10 mg DAILY PRN RECTAL 12/02/17 22:15 (Lactulose Liq) 30 ml DAILY PRN PO 12/02/17 22:15 (Pill Splitter) 1 ea UNSCH PRN OTHER 12/03/17 13:30 (Norvasc) 10 mg DAILY PO 12/05/17 09:00 12/08/17 07:54 (Cozaar) 25 mg DAILY PO 12/05/17 09:00 12/08/17 07:56 (Apresoline) 25 mg Q8H PRN PO 12/04/17 16:15 12/06/17 20:46 (Flomax) 0.4 mg DAILY PO 12/05/17 09:00 12/07/17 08:54 (Haldol Inj) 5 mg Q4H PRN IM 12/05/17 18:45 (Aricept) 5 mg DAILY PO 12/07/17 09:00 12/08/17 07:57 (Coreg) 3.125 mg Q12HR PO 12/07/17 11:15 12/08/17 07:55 (Geodon) 20 mg BIDPC PO 12/07/17 18:00 Future Hold 12/08/17 07:57 (Aspirin Chew) 81 mg DAILY CHEW 12/08/17 09:00 12/08/17 08:11 Allergies Allergies Coded Allergies No Known Allergies (Unverified02/04/17) Exam I&O / VS Vital Signs Date Time Temp Pulse Resp B/P (MAP) Pulse Ox O2 Delivery O2 Flow Rate FiO2 12/08/17 15:50 94.2 64 20 136/77 (96) 99 12/08/17 11:58 65 20 119/62 (81) 95 12/08/17 08:25 94 21 12/08/17 07:30 97.5 56 20 171/90 (117) 95 12/08/17 04:00 96.5 69 20 161/88 (112) 98 Manual Cuff/Auscultation Automatic Cuff 12/08/17 00:24 140/82 (101) 12/08/17 00:00 96.7 72 20 171/97 (121) 98 Manual Cuff/Auscultation 12/07/17 20:05 96 21 12/07/17 20:00 96.0 64 20 143/81 (101) 99 12/07/17 18:11 97.1 78 20 109/64 (79) 96 Exam Comments alert, disoriented. follow simple commands CN intact Objective Micro and Labs Laboratory Tests Test 12/08/17 05:45 White Blood Count 6.6 Red Blood Count 4.24 Hemoglobin 13.4 Hematocrit 40.2 Mean Corpuscular Volume 94.6 Mean Corpuscular Hemoglobin 31.5 Mean Corpuscular Hemoglobin Concent 33.3 Red Cell Distribution Width 13.5 Platelet Count 160 Mean Platelet Volume 8.0 Neutrophils (%) (Auto) 75.8 Lymphocytes (%) (Auto) 10.1 Monocytes (%) (Auto) 6.3 Eosinophils (%) (Auto) 7.5 Basophils (%) (Auto) 0.3 Neutrophils # (Auto) 5.0 Lymphocytes # (Auto) 0.7 Monocytes # (Auto) 0.4 Eosinophils # (Auto) 0.5 Basophils # (Auto) 0.0 CBC Comment DIFF FINAL Differential Comment Blood Urea Nitrogen 18 Creatinine 0.85 Random Glucose 75 Calcium Level 8.6 Magnesium Level 2.0 Sodium Level 137 Potassium Level 4.2 Chloride Level 103 Carbon Dioxide Level 27.1 Anion Gap 7 Estimat Glomerular Filtration Rate 87 Date/Time Source Procedure Growth Status 12/02/17 19:30 Blood Peripheral Aerobic Blood Culture - Final NO GROWTH IN 5 DAYS Complete 12/02/17 19:30 Blood Peripheral Anaerobic Blood Culture - Final NO GROWTH IN 5 DAYS Complete Sincere Huggins MD PhD Dec 08, 2017 16:38
[2017-12-09] VITALS (7 sets, daily range): BP systolic 124–144; BP diastolic 60–82; PULSE 61–75; RESP 18–19; TEMP 96.9–98.9; O2SAT 95–98
--- NOTE | 2017-12-09 08:44 | HHI.PR ---
Subjective Remarks Patient seen and examined today for follow-up on encephalopathy. Patient is easily arousable this morning. Objective Vitals Vital Signs Date Time Temp Pulse Resp B/P (MAP) Pulse Ox O2 Delivery O2 Flow Rate FiO2 12/09/17 00:00 97.1 61 18 144/82 (102) 98 12/08/17 20:50 95 21 12/08/17 20:00 98.4 65 18 129/64 (85) 95 12/08/17 15:50 94.2 64 20 136/77 (96) 99 12/08/17 11:58 94.0 65 20 119/62 (81) 95 I/O 12/08/17 12/08/17 12/08/17 12/09/17 12/09/17 12/09/17 07:00 15:00 23:00 07:00 15:00 23:00 Intake Total 60 ml 340 ml Output Total 700 ml 1000 ml 350 ml Balance -640 ml -660 ml -350 ml Intake Oral 60 ml 340 ml Output Urine Total 700 ml 1000 ml 350 ml # Bowel Movements 0 0 Result Diagram: 12/08/17 0545 12/08/17 0545 Objective Remarks GENERAL: Well-developed, cachectic, in no acute distress. Patient more alert, answering questions appropriately. Following commands HEENT: Head is normocephalic without any lesions or masses noted. Facial features are symmetric. NECK: Supple without any masses. Trachea midline no deviation. No JVD, CARDIAC: Regular rhythm, regular rate. S1/S2 are heard. No murmurs gallops or rubs. LUNGS: Mild wheeze and rhonchi noted bilaterally. No rales. No use of accessory muscles on inspiration or expiration. ABDOMEN: Soft, nontender. Nondistended. Bowel sounds heard in all 4 quadrants. No organomegaly or masses. Negative rebound, negative guarding, Thornton in place EXTREMITIES: No edema, pulses are equal bilaterally. No cyanosis or clubbing Urinary Catheter: Yes Assessment to: Continue Thornton insert reason: Obstruction/Retention Vascular Central Line Catheter: No A/P Assessment and Plan Metabolic encephalopathy in a patient with known underlying dementia, improving -Patient with underlying dementia, possible psychosis -Infectious source was not identified, discontinued antibiotics -Seroquel discontinued due to possible urinary retention -Neurology consulted who recommended trial of Aricept -Psychiatry evaluated the patient who agreed with discontinuation of Seroquel and recommended Haldol -Patient was extremely sedated on Haldol and Geodon, both of which have been discontinued -Speech therapy evaluated the patient and made him pured diet. 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 indicate emphysema with interstitial disease, small bilateral pulmonary nodules, small bilateral effusions -Status post mild diuresis -Patient no longer requiring O2 supplementation -Echocardiogram indicated normal left ventricular size, severely reduced left ventricular function with ejection fraction less than 20%, consistent with dilated cardiomyopathy, PA peak pressure 47.9 mmhg -Patient will require short-term outpatient follow-up on lung nodules -Incentive spirometry Severe cardiomyopathy, possibly dilated cardiomyopathy with ejection fraction less than 20% -Initial troponins were negative on presentation -Patient will likely require AICD/LifeVest, -Consult cardiology for recommendations, who agreed with Coreg, Norvasc, losartan. Added aspirin -Per cardiology, he is not a candidate for defibrillator vest or implantable defibrillated nor a candidate for any invasive procedural workup. Chronic kidney disease stage III, significantly improved -Monitor renal function -Avoid nephrotoxins urinary retention -Could be secondary to Seroquel use -Thornton catheter in place with bladder training, DC Thornton when bladder training successful -Continue Flomax Cerumen impaction -Resolved after irrigation -Discontinue Debrox Abdominal pain -Unspecified abdominal pain -Appears resolved after bowel movements -Continue with bowel regimen Hypertension, underlying pulmonary hypertension -Blood pressure appears to be elevated during times of agitation -Coreg 3.125 mg twice daily -Norvasc 10 mg daily -Losartan 25 mg daily -Apresoline as needed DVT prevention -Sequential compression devices Discharge Planning Case management for discharge planning, will need rehab placement. [id number] signed and on the chart Eriberto Dalton Dec 09, 2017 08:44
[2017-12-09] MEDS: TAMSULOSIN HCL 0.4 MG CAP PO SCH (09:00)
[2017-12-09] MEDS: SODIUM CHLORIDE 0.9% FLUSH 10 ML FLUSH IV FLUSH SCH ×2 (09:00→20:29)
[2017-12-09] MEDS: ASPIRIN 81 MG CHEW TAB CHEW SCH (09:34)
[2017-12-09] MEDS: DONEPEZIL HCL 5 MG TAB PO SCH (09:34)
[2017-12-09] MEDS: LOSARTAN 25 MG TAB PO SCH (09:34)
[2017-12-09] MEDS: DOCUSATE SODIUM 50 MG/SENNA 8.6 MG TAB PO SCH ×3 (09:34→20:32)
[2017-12-09] MEDS: amLODIPine BESYLATE 5 MG TAB PO SCH (09:34)
[2017-12-09] MEDS: CARVEDILOL 3.125 MG TAB PO SCH ×3 (09:35→20:32)
[2017-12-10] VITALS: BP 130/77; PULSE 66; RESP 18; TEMP 98.2; O2SAT 96
[2017-12-10] MEDS: RESP: ALBUTEROL 2.5 MG/IPRATROPIUM 0.5 MG NEB (PRN) NEB ×2 (02:33→14:33)
[2017-12-10 06:20] LABS: AUTOMATED NEUTROPHIL # 4.7 TH/MM3 (1.8-7.7); BASOPHIL # 0.1 TH/MM3 (0-0.2); BASOPHIL % 0.8 % (0.0-2.0); EOSINOPHIL # 0.5 TH/MM3 (0-0.4); EOSINOPHIL % 7.4 % (0.0-4.0); HEMATOCRIT 40.2 % (39.0-51.0); HEMOGLOBIN 13.1 GM/DL (13.0-17.0); LYMPH % 12.7 % (9.0-44.0); LYMPHOCYTE # 0.9 TH/MM3 (1.0-4.8); MEAN CELL VOLUME 96.2 FL (80.0-100.0); MEAN CORPUSCULAR HEMOGLOBIN 31.4 PG (27.0-34.0); MEAN CORPUSCULAR HGB CONC 32.7 % (32.0-36.0); MEAN PLATELET VOLUME 8.1 FL (7.0-11.0); MONO % 7.8 % (0.0-8.0); MONOCYTE # 0.5 TH/MM3 (0-0.9); NEUT % 71.3 % (16.0-70.0); PLATELET COUNT 183 TH/MM3 (150-450); RED BLOOD COUNT 4.18 MIL/MM3 (4.50-5.90); RED CELL DISTRIBUTION WIDTH 13.4 % (11.6-17.2); WHITE BLOOD COUNT 6.7 TH/MM3 (4.0-11.0)
[2017-12-10 06:31] LABS: CALCIUM 8.7 MG/DL (8.5-10.1)
[2017-12-10 06:32] LABS: BICARBONATE 30.1 MEQ/L (21.0-32.0)
[2017-12-10 06:35] LABS: CREATININE 0.94 MG/DL (0.60-1.30)
--- NOTE | 2017-12-10 07:44 | HHI.PR ---
Subjective Remarks Patient seen and examined today for follow-up on altered mental status. Patient easy to arouse today. He is speaking more clearly. However he is still not orientated to place, time. Vital signs are stable, patient remains afebrile Objective Vitals Vital Signs Date Time Temp Pulse Resp B/P (MAP) Pulse Ox O2 Delivery O2 Flow Rate FiO2 12/10/17 00:00 98.2 66 18 130/77 (94) 96 12/09/17 20:25 95 21 12/09/17 20:00 97.1 75 18 124/62 (82) 96 12/09/17 16:00 96.9 61 18 125/62 (83) 95 12/09/17 12:00 98.1 71 19 132/60 (84) 96 12/09/17 10:13 95 21 12/09/17 08:00 98.9 62 19 133/73 (93) 95 I/O 12/09/17 12/09/17 12/09/17 12/10/17 12/10/17 12/10/17 07:00 15:00 23:00 07:00 15:00 23:00 Intake Total 120 ml 480 ml Output Total 350 ml 390 ml Balance -350 ml 120 ml 90 ml Intake Oral 120 ml 480 ml Output Urine Total 350 ml 390 ml Bladder Scan Volume Amount 210 ml 438 ml 248 ml # Voids 2 3 # Bowel Movements 5 2 Result Diagram: 12/10/17 0520 12/10/17 0520 Objective Remarks GENERAL: Well-developed, cachectic, in no acute distress. Patient more alert, answering questions appropriately. Following commands HEENT: Head is normocephalic without any lesions or masses noted. Facial features are symmetric. NECK: Supple without any masses. Trachea midline no deviation. No JVD, CARDIAC: Regular rhythm, regular rate. S1/S2 are heard. No murmurs gallops or rubs. LUNGS: Mild wheeze and rhonchi noted bilaterally. No rales. No use of accessory muscles on inspiration or expiration. ABDOMEN: Soft, nontender. Nondistended. Bowel sounds heard in all 4 quadrants. No organomegaly or masses. Negative rebound, negative guarding, Thornton in place EXTREMITIES: No edema, pulses are equal bilaterally. No cyanosis or clubbing Urinary Catheter: No Vascular Central Line Catheter: No A/P Assessment and Plan Metabolic encephalopathy in a patient with known underlying dementia, improving daily -Patient with underlying dementia, possible psychosis -Infectious source was not identified, discontinued antibiotics -Seroquel discontinued due to possible urinary retention -Neurology consulted who recommended trial of Aricept -Psychiatry evaluated the patient who agreed with discontinuation of Seroquel and recommended Haldol -Patient was extremely sedated on Haldol and Geodon, both of which have been discontinued -Speech therapy evaluated the patient and made him pured diet, honey consistent liquid. 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 indicate emphysema with interstitial disease, small bilateral pulmonary nodules, small bilateral effusions -Status post mild diuresis -Patient no longer requiring O2 supplementation -Echocardiogram indicated normal left ventricular size, severely reduced left ventricular function with ejection fraction less than 20%, consistent with dilated cardiomyopathy, PA peak pressure 47.9 mmhg -Patient will require short-term outpatient follow-up on lung nodules -Incentive spirometry Severe cardiomyopathy, possibly dilated cardiomyopathy with ejection fraction less than 20% -Initial troponins were negative on presentation -Patient will likely require AICD/LifeVest, -Consult cardiology for recommendations, who agreed with Coreg, Norvasc, losartan. Added aspirin -Per cardiology, he is not a candidate for defibrillator vest or implantable defibrillated nor a candidate for any invasive procedural workup. Chronic kidney disease stage III, significantly improved -Monitor renal function -Avoid nephrotoxins urinary retention -Could be secondary to Seroquel use -Thornton catheter was removed. As needed bladder scan, straight cath if needed -Continue Flomax Cerumen impaction -Resolved after irrigation -Discontinue Debrox Abdominal pain -Unspecified abdominal pain -Appears resolved after bowel movements -Continue with bowel regimen Hypertension, underlying pulmonary hypertension -Blood pressure appears to be elevated during times of agitation -Coreg 3.125 mg twice daily -Norvasc 10 mg daily -Losartan 25 mg daily -Apresoline as needed DVT prevention -Sequential compression devices Discharge Planning Case management for discharge planning, will need rehab placement. [id number] signed and on the chart Eribetro Dalton Dec 10, 2017 07:44
[2017-12-10] MEDS: DONEPEZIL HCL 5 MG TAB PO SCH (07:59)
[2017-12-10 08:00] VITALS: BP 138/69; PULSE 115; RESP 19; TEMP 97.7; O2SAT 96
[2017-12-10] MEDS: LOSARTAN 25 MG TAB PO SCH (08:00)
[2017-12-10] MEDS: CARVEDILOL 3.125 MG TAB PO SCH ×2 (08:00→20:41)
[2017-12-10] MEDS: SODIUM CHLORIDE 0.9% FLUSH 10 ML FLUSH IV FLUSH SCH ×2 (08:00→20:39)
[2017-12-10] MEDS: DOCUSATE SODIUM 50 MG/SENNA 8.6 MG TAB PO SCH ×2 (08:00→20:41)
[2017-12-10] MEDS: amLODIPine BESYLATE 5 MG TAB PO SCH (08:00)
[2017-12-10] MEDS: TAMSULOSIN HCL 0.4 MG CAP PO SCH (08:00)
[2017-12-10] MEDS: ASPIRIN 81 MG CHEW TAB CHEW SCH (08:00)
[2017-12-10 11:34] VITALS: BP 106/56; PULSE 60; RESP 19; TEMP 98.1; O2SAT 97
[2017-12-10 16:00] VITALS: BP 104/57; PULSE 63; RESP 20; TEMP 98.1; O2SAT 97
[2017-12-10 20:00] VITALS: BP 115/66; PULSE 73; RESP 16; TEMP 96.2; O2SAT 95
[2017-12-10 20:22] VITALS: O2SAT 94
[2017-12-11] VITALS (7 sets, daily range): BP systolic 109–153; BP diastolic 60–81; PULSE 58–76; RESP 16–19; TEMP 97.8–98.4; O2SAT 94–97
[2017-12-11] MEDS: DOCUSATE SODIUM 50 MG/SENNA 8.6 MG TAB PO SCH ×2 (09:00→21:36)
[2017-12-11] MEDS: SODIUM CHLORIDE 0.9% FLUSH 10 ML FLUSH IV FLUSH SCH ×2 (09:00→21:36)
[2017-12-11] MEDS: LOSARTAN 25 MG TAB PO SCH (09:37)
[2017-12-11] MEDS: DONEPEZIL HCL 5 MG TAB PO SCH (09:37)
[2017-12-11] MEDS: CARVEDILOL 3.125 MG TAB PO SCH ×2 (09:37→21:36)
[2017-12-11] MEDS: amLODIPine BESYLATE 5 MG TAB PO SCH (09:37)
[2017-12-11] MEDS: TAMSULOSIN HCL 0.4 MG CAP PO SCH (09:37)
[2017-12-11] MEDS: ASPIRIN 81 MG CHEW TAB CHEW SCH (09:37)
--- NOTE | 2017-12-11 09:46 | HHI.PR ---
Subjective Remarks Patient seen and examined today for follow-up on altered mentation. Patient is sitting up eating breakfast with nursing feeding him. Patient still not that responsive. Patient still with intermittent bladder scans and straight cath. Vital signs are stable, patient remains afebrile Objective Vitals Vital Signs Date Time Temp Pulse Resp B/P (MAP) Pulse Ox O2 Delivery O2 Flow Rate FiO2 12/11/17 08:00 97.8 62 16 124/66 (85) 97 12/11/17 04:00 98.4 67 17 140/60 (86) 94 12/11/17 00:00 98.3 76 16 153/81 (105) 95 12/10/17 20:22 94 21 12/10/17 20:00 96.2 73 16 115/66 (82) 95 12/10/17 16:00 98.1 63 20 104/57 (73) 97 12/10/17 11:34 98.1 60 19 106/56 (73) 97 I/O 12/10/17 12/10/17 12/10/17 12/11/17 12/11/17 12/11/17 07:00 15:00 23:00 07:00 15:00 23:00 Intake Total 770 ml 1240 ml 120 ml Output Total 0 ml 650 ml Balance 770 ml 1240 ml -650 ml 120 ml Intake Oral 770 ml 1240 ml 120 ml Output Urine Total 0 ml 650 ml Bladder Scan Volume Amount 120 ml 242 ml 692 ml 319 ml # Voids 3 # Bowel Movements 2 0 Result Diagram: 12/10/17 0520 12/10/17 0520 Objective Remarks GENERAL: Well-developed, cachectic, in no acute distress. Patient is arousable. Does follow simple commands. Does not speak much HEENT: Head is normocephalic without any lesions or masses noted. Facial features are symmetric. NECK: Supple without any masses. Trachea midline no deviation. No JVD, CARDIAC: Regular rhythm, regular rate. S1/S2 are heard. No murmurs gallops or rubs. LUNGS: Mild wheeze and rhonchi noted bilaterally. No rales. No use of accessory muscles on inspiration or expiration. ABDOMEN: Soft, nontender. Nondistended. Bowel sounds heard in all 4 quadrants. No organomegaly or masses. Negative rebound, negative guarding, EXTREMITIES: No edema, pulses are equal bilaterally. No cyanosis or clubbing Urinary Catheter: No Vascular Central Line Catheter: No A/P Assessment and Plan Metabolic encephalopathy in a patient with known underlying dementia, improving daily -Patient with underlying dementia, possible psychosis -Infectious source was not identified, discontinued antibiotics -Seroquel discontinued due to possible urinary retention -Neurology consulted who recommended trial of Aricept -Psychiatry evaluated the patient who agreed with discontinuation of Seroquel and recommended Haldol -Patient was extremely sedated on Haldol and Geodon, both of which have been discontinued -Speech therapy evaluated the patient and made him pured diet, honey consistent liquid. -We will hold Aricept at this time due to patient mentation not improving -We will get another laboratory workup for encephalopathy with CBC, CMP, ammonia , sed rate, folate, -The patient does not improve will need to reconsult neurology/psychology and possibly palliative care 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 indicate emphysema with interstitial disease, small bilateral pulmonary nodules, small bilateral effusions -Status post mild diuresis -Patient no longer requiring O2 supplementation -Echocardiogram indicated normal left ventricular size, severely reduced left ventricular function with ejection fraction less than 20%, consistent with dilated cardiomyopathy, PA peak pressure 47.9 mmhg -Patient will require short-term outpatient follow-up on lung nodules -Incentive spirometry Severe cardiomyopathy, possibly dilated cardiomyopathy with ejection fraction less than 20% -Initial troponins were negative on presentation -Patient will likely require AICD/LifeVest, -Consult cardiology for recommendations, who agreed with Coreg, Norvasc, losartan. Added aspirin -Per cardiology, he is not a candidate for defibrillator vest or implantable defibrillated nor a candidate for any invasive procedural workup. Chronic kidney disease stage III, significantly improved -Monitor renal function -Avoid nephrotoxins urinary retention -Could be secondary to Seroquel use -Thornton catheter was removed. As needed bladder scan, straight cath if needed -Continue Flomax Cerumen impaction -Resolved after irrigation -Discontinue Debrox Abdominal pain -Unspecified abdominal pain -Appears resolved after bowel movements -Continue with bowel regimen Hypertension, underlying pulmonary hypertension -Blood pressure appears to be elevated during times of agitation -Coreg 3.125 mg twice daily -Norvasc 10 mg daily -Losartan 25 mg daily -Apresoline as needed DVT prevention -Sequential compression devices Discharge Planning Case management for discharge planning, will need rehab placement. [id number] signed and on the chart Eriberto Dalton Dec 11, 2017 09:46
[2017-12-11] MEDS: CYANOCOBALAMIN 1000 MCG/ML VIAL IM SCH (12:56)
[2017-12-12] VITALS (7 sets, daily range): BP systolic 118–140; BP diastolic 67–79; PULSE 55–66; RESP 18; TEMP 96.4–97.8; O2SAT 94–98
[2017-12-12 04:01] LABS: BILIRUBIN, URINE NEG (NEG); BLOOD, URINE SMALL (NEG); GLUCOSE,URINE NEG (NEG); KETONE, URINE NEG (NEG); NITRITE,URINE NEG (NEG); URINE COLOR YELLOW (YELLW/STRAW); URINE LEUKOCYTE ESTERASE NEG (NEG)
[2017-12-12 04:09] LABS: BACTERIA, URINE MOD /hpf; SQUAMOUS EPITHELIAL CELL URINE 0-5 /hpf (0-5); WBC, URINE 0-2 /hpf (0-5)
[2017-12-12 06:43] LABS: AUTOMATED NEUTROPHIL # 5.2 TH/MM3 (1.8-7.7); BASOPHIL % 0.2 % (0.0-2.0); EOSINOPHIL # 0.4 TH/MM3 (0-0.4); EOSINOPHIL % 6.2 % (0.0-4.0); HEMATOCRIT 37.2 % (39.0-51.0); HEMOGLOBIN 12.2 GM/DL (13.0-17.0); LYMPH % 11.1 % (9.0-44.0); LYMPHOCYTE # 0.8 TH/MM3 (1.0-4.8); MEAN CELL VOLUME 94.6 FL (80.0-100.0); MEAN CORPUSCULAR HEMOGLOBIN 31.1 PG (27.0-34.0); MEAN CORPUSCULAR HGB CONC 32.9 % (32.0-36.0); MEAN PLATELET VOLUME 7.5 FL (7.0-11.0); MONO % 9.1 % (0.0-8.0); MONOCYTE # 0.6 TH/MM3 (0-0.9); NEUT % 73.4 % (16.0-70.0); PLATELET COUNT 196 TH/MM3 (150-450); RED BLOOD COUNT 3.93 MIL/MM3 (4.50-5.90); RED CELL DISTRIBUTION WIDTH 13.9 % (11.6-17.2)
[2017-12-12 06:49] LABS: CHLORIDE 102 MEQ/L (98-107); SODIUM (NA) 135 MEQ/L (136-145)
[2017-12-12 06:56] LABS: CALCIUM 8.5 MG/DL (8.5-10.1)
[2017-12-12 06:57] LABS: ALBUMIN 2.6 GM/DL (3.4-5.0); BICARBONATE 28.1 MEQ/L (21.0-32.0); BLOOD UREA NITROGEN 21 MG/DL (7-18); GLUCOSE,RANDOM 81 MG/DL (74-106)
[2017-12-12 07:00] LABS: ALT (GPT) 18 U/L (12-78); AST (GOT) 22 U/L (15-37); GLOMERULAR FILTRATION RATE 72 ML/MIN (>89)
[2017-12-12 07:02] LABS: TOTAL BILIRUBIN ADULT 0.5 MG/DL (0.2-1.0); TOTAL PROTEIN 5.5 GM/DL (6.4-8.2)
[2017-12-12 07:03] LABS: ALKALINE PHOSPHATASE 75 U/L (45-117)
--- NOTE | 2017-12-12 08:48 | HHI.PR ---
Subjective Remarks Patient seen and examined today. Patient is opening his eyes more today. However he is not conversing. Continue to hold all psychotropic medications. Will need to get neurology, psychology back on board. We will also obtain palliative care evaluation Objective Vitals Vital Signs Date Time Temp Pulse Resp B/P (MAP) Pulse Ox O2 Delivery O2 Flow Rate FiO2 12/12/17 08:00 97.8 64 18 123/75 (91) 98 12/12/17 07:41 94 21 12/11/17 20:00 98.3 64 18 109/64 (79) 97 12/11/17 19:36 97 21 12/11/17 15:50 97.8 58 19 118/76 (90) 96 12/11/17 12:00 98.4 61 17 122/64 (83) 96 I/O 12/11/17 12/11/17 12/11/17 12/12/17 12/12/17 12/12/17 07:00 15:00 23:00 07:00 15:00 23:00 Intake Total 120 ml 100 ml Output Total 650 ml 500 ml Balance -650 ml 120 ml 100 ml -500 ml Intake Oral 120 ml 100 ml Output Urine Total 650 ml 500 ml Bladder Scan Volume Amount 692 ml 984 ml 539 ml Result Diagram: 12/12/1762112/12/17 06 Objective Remarks GENERAL: Well-developed, cachectic, in no acute distress. Patient is arousable. He is opening his eyes more, however is not speaking HEENT: Head is normocephalic without any lesions or masses noted. Facial features are symmetric. NECK: Supple without any masses. Trachea midline no deviation. No JVD, CARDIAC: Regular rhythm, regular rate. S1/S2 are heard. No murmurs gallops or rubs. LUNGS: Mild wheeze and rhonchi noted bilaterally. No rales. No use of accessory muscles on inspiration or expiration. ABDOMEN: Soft, nontender. Nondistended. Bowel sounds heard in all 4 quadrants. No organomegaly or masses. Negative rebound, negative guarding, EXTREMITIES: No edema, pulses are equal bilaterally. No cyanosis or clubbing Urinary Catheter: No Vascular Central Line Catheter: No A/P Assessment and Plan Metabolic encephalopathy in a patient with known underlying dementia, -Patient with underlying dementia, possible psychosis -Infectious source was not identified, discontinued antibiotics -Seroquel discontinued due to possible urinary retention -Neurology consulted who recommended trial of Aricept -Psychiatry evaluated the patient who agreed with discontinuation of Seroquel and recommended Haldol -Patient was extremely sedated on Haldol, Geodon, Aricept. All of which have been held at this time to evaluate for neurological improvement -Speech therapy evaluated the patient and made him pured diet, honey consistent liquid. -Did another laboratory workup for encephalopathy with CBC, CMP, ammonia, sed rate, folate which were all unremarkable -Patient has not improved will need to reconsult neurology/psychology and consult palliative care 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 indicate emphysema with interstitial disease, small bilateral pulmonary nodules, small bilateral effusions -Status post mild diuresis -Patient no longer requiring O2 supplementation -Echocardiogram indicated normal left ventricular size, severely reduced left ventricular function with ejection fraction less than 20%, consistent with dilated cardiomyopathy, PA peak pressure 47.9 mmhg -Patient will require short-term outpatient follow-up on lung nodules -Incentive spirometry Severe cardiomyopathy, possibly dilated cardiomyopathy with ejection fraction less than 20% -Initial troponins were negative on presentation -Patient will likely require AICD/LifeVest, -Consult cardiology for recommendations, who agreed with Coreg, Norvasc, losartan. Added aspirin -Per cardiology, he is not a candidate for defibrillator vest or implantable defibrillated nor a candidate for any invasive procedural workup. Chronic kidney disease stage III, significantly improved -Monitor renal function -Avoid nephrotoxins Urinary retention -Could be secondary to Seroquel use -Thornton catheter was removed. As needed bladder scan, straight cath is being performed -Reinsert Thornton catheter, secondary patient not improving and risk of infection of requirement for straight cathing -Continue Flomax Cerumen impaction -Resolved after irrigation -Discontinue Debrox Abdominal pain -Unspecified abdominal pain -Appears resolved after bowel movements -Continue with bowel regimen Hypertension, underlying pulmonary hypertension -Blood pressure appears to be elevated during times of agitation -Coreg 3.125 mg twice daily -Norvasc 10 mg daily -Losartan 25 mg daily -Apresoline as needed DVT prevention -Sequential compression devices Discharge Planning Case management for discharge planning, will need rehab placement. [id number] signed and on the chart Eriberto Dalton Dec 12, 2017 08:48
[2017-12-12 08:53] LABS: WESTERGREN SEDIMENTATION RATE 10 mm/hr (0-20)
[2017-12-12 11:40] LABS: FOLATE 2.6 NG/ML (3.1-17.5)
[2017-12-12] MEDS: TAMSULOSIN HCL 0.4 MG CAP PO SCH (12:07)
[2017-12-12] MEDS: LOSARTAN 25 MG TAB PO SCH (12:07)
[2017-12-12] MEDS: amLODIPine BESYLATE 5 MG TAB PO SCH (12:07)
[2017-12-12] MEDS: SODIUM CHLORIDE 0.9% FLUSH 10 ML FLUSH IV FLUSH SCH ×2 (12:07→21:00)
[2017-12-12] MEDS: DOCUSATE SODIUM 50 MG/SENNA 8.6 MG TAB PO SCH ×2 (12:07→21:15)
[2017-12-12] MEDS: CARVEDILOL 3.125 MG TAB PO SCH ×2 (12:07→21:15)
[2017-12-12] MEDS: ASPIRIN 81 MG CHEW TAB CHEW SCH (12:07)
--- NOTE | 2017-12-12 13:12 | HHI.PYPN ---
Subjective Remarks Patient was seen for reevaluation today. He is non-cooperative, he is hypoalert , with marked psychomotor retardation, somnolent, seems to be sedated and non engageble in a conversation. He is not receiving any psychotropic at the moment. Review of Systems Psychiatric: COMPLAINS OF: Confusion Mental Status Examination Appearance: Appropriate Consciousness: Alert Orientation: Person Motor Activity: Abnormal gait Speech: Slow, Incoherent Language: Other (mute ) Fund of Knowledge: Inadequate Attention and Concentration: Inadequate Memory: Impaired Mood: Oppositional Affect: Flat Thought Process & Associations: Disorganized Thought Content: Thought blocking Hallucination Type: None Delusion Type: None Suicidal Ideation: No Suicidal Plan: No Suicidal Intention: No Homicidal Ideation: No Homicidal Plan: No Homicidal Intention: No Insight: Poor Judgment: Poor Results Labs Test 12/12/17 03:50 12/12/17 06:22 Urine Color YELLOW Urine Turbidity CLEAR Urine pH 7.0 Urine Specific [place] 1.015 Urine Protein NEG mg/dL Urine Glucose (UA) NEG mg/dL Urine Ketones NEG mg/dL Urine Occult Blood SMALL Urine Nitrite NEG Urine Bilirubin NEG Urine Urobilinogen 0.2 MG/DL Urine Leukocyte Esterase NEG Urine WBC 0-2 /hpf Urine Squamous Epithelial Cells 0-5 /hpf Urine Bacteria MOD /hpf Microscopic Urinalysis Comment CULTURE INDICATED White Blood Count 7.0 TH/MM3 Red Blood Count 3.93 MIL/MM3 Hemoglobin 12.2 GM/DL Hematocrit 37.2 % Mean Corpuscular Volume 94.6 FL Mean Corpuscular Hemoglobin 31.1 PG Mean Corpuscular Hemoglobin Concent 32.9 % Red Cell Distribution Width 13.9 % Platelet Count 196 TH/MM3 Mean Platelet Volume 7.5 FL Neutrophils (%) (Auto) 73.4 % Lymphocytes (%) (Auto) 11.1 % Monocytes (%) (Auto) 9.1 % Eosinophils (%) (Auto) 6.2 % Basophils (%) (Auto) 0.2 % Neutrophils # (Auto) 5.2 TH/MM3 Lymphocytes # (Auto) 0.8 TH/MM3 Monocytes # (Auto) 0.6 TH/MM3 Eosinophils # (Auto) 0.4 TH/MM3 Basophils # (Auto) 0.0 TH/MM3 CBC Comment DIFF FINAL Differential Comment Erythrocyte Sedimentation Rate 10 mm/hr Blood Urea Nitrogen 21 MG/DL Creatinine 1.00 MG/DL Random Glucose 81 MG/DL Total Protein 5.5 GM/DL Albumin 2.6 GM/DL Calcium Level 8.5 MG/DL Alkaline Phosphatase 75 U/L Aspartate Amino Transf (AST/SGOT) 22 U/L Alanine Aminotransferase (ALT/SGPT) 18 U/L Total Bilirubin 0.5 MG/DL Sodium Level 135 MEQ/L Potassium Level 4.6 MEQ/L Chloride Level 102 MEQ/L Carbon Dioxide Level 28.1 MEQ/L Anion Gap 5 MEQ/L Estimat Glomerular Filtration Rate 72 ML/MIN Ammonia LESS THAN 10 MCMOL/L Folate 2.6 NG/ML Date/Time Source Procedure Growth Status 12/02/17 19:30 Blood Peripheral Aerobic Blood Culture - Final NO GROWTH IN 5 DAYS Complete 12/02/17 19:30 Blood Peripheral Anaerobic Blood Culture - Final NO GROWTH IN 5 DAYS Complete 12/12/17 03:50 Urine Clean Catch Urine Culture Pending Received Vitals/IOs Vital Signs Date Time Temp Pulse Resp B/P (MAP) Pulse Ox O2 Delivery O2 Flow Rate FiO2 12/12/17 08:00 97.8 64 18 123/75 (91) 98 12/12/17 07:41 21 Intake and Output 12/12/17 12/12/17 12/13/17 08:00 16:00 00:00 Output Total 500 ml Balance -500 ml Assessment & Plan Problem List: (1) Dementia ICD Codes: F03.90 - Unspecified dementia without behavioral disturbance (2) Acute hypoactive delirium due to multiple etiologies ICD Codes: F05 - Delirium due to known physiological condition Assessment & Plan: Patient is non cooperative, with psychiatric evaluation. Hypoactive, hypoalert, sedated-like. Continue to hold psychotropics. No evidence of psychosis, depression, anxiety or anthony at this moment. Consider a re-consult to Neurology and repeating brain Images. Assessment & Plan Estimated LOS: days Justification for Cont. Inpt. No psychiatric hospitalization indicated at the moment. Ze Cruz MD Dec 12, 2017 13:12
--- NOTE | 2017-12-12 17:12 | RADRPT ---
EXAM DATE/TIME: 12/12/2017 16:06 [facility] COMPARISON: CT BRAIN W/O CONTRAST, December 02, 2017, 20:59. INDICATIONS : Increased confusion. RADIATION DOSE: 59.67 CTDIvol (mGy) ; Patient motion MEDICAL HISTORY : Hypertension. SURGICAL HISTORY : None. ENCOUNTER: Subsequent ACUITY: 2 weeks PAIN SCALE: Non-responsive LOCATION: cranial TECHNIQUE: Multiple contiguous axial images were obtained of the head. Using automated exposure control and adj ustment of the mA and/or kV according to patient size, radiation dose was kept as low as reasonably a chievable to obtain optimal diagnostic quality images. DICOM format image data is available electro nically for review and comparison. FINDINGS: CEREBRUM: The ventricles and cortical sulci are widened. There is decreased density in the periventricular whit e matter. No evidence of midline shift, mass lesion, hemorrhage or acute infarction. No extra-axial fluid collections are seen. POSTERIOR FOSSA: The cerebellum and brainstem are intact. The 4th ventricle is midline. The cerebellopontine angle i s unremarkable. EXTRACRANIAL: The visualized portion of the orbits is intact. SKULL: The calvaria is intact. No evidence of skull fracture. CONCLUSION: 1. No acute abnormality seen. 2. Atrophy. 3. Suspected small vessel ischemic change in the white matter. Deon De Luna MD on December 12, 2017 at 17:06 Board Certified Radiologist. This report was verified electronically.
--- NOTE | 2017-12-12 20:51 | HHI.PR ---
Review/Management Diagnosis dementia--now with more aggitation, less cooperative than my prior exam Plan stop aricept for possible adverse reaction MRI brain if he can tolerate to rule out other process such as stroke. Diagnosis/Plan: Subjective Subjective Comments Pt has been more aggitated Active Medications Current Medications Medications (Trade) Dose Ordered Sig/Isa Route Start Time Stop Time Status Last Admin (NS Flush) 2 ml UNSCH PRN IV FLUSH 12/02/17 22:15 (NS Flush) 2 ml BID IV FLUSH 12/03/17 09:00 12/12/17 12:07 (Tylenol) 650 mg Q6H PRN PO 12/02/17 22:15 12/05/17 18:31 (Estefany-Colace) 1 tab BID PO 12/03/17 09:00 12/12/17 12:07 (Milk Of Magnesia Liq) 30 ml Q12H PRN PO 12/02/17 22:15 12/10/17 18:16 (Senokot) 17.2 mg Q12H PRN PO 12/02/17 22:15 (Dulcolax Supp) 10 mg DAILY PRN RECTAL 12/02/17 22:15 12/09/17 09:36 (Lactulose Liq) 30 ml DAILY PRN PO 12/02/17 22:15 (Pill Splitter) 1 ea UNSCH PRN OTHER 12/03/17 13:30 (Norvasc) 10 mg DAILY PO 12/05/17 09:00 12/12/17 12:07 (Cozaar) 25 mg DAILY PO 12/05/17 09:00 12/12/17 12:07 (Apresoline) 25 mg Q8H PRN PO 12/04/17 16:15 12/06/17 20:46 (Flomax) 0.4 mg DAILY PO 12/05/17 09:00 12/12/17 12:07 (Haldol Inj) 5 mg Q4H PRN IM 12/05/17 18:45 (Aricept) 5 mg DAILY PO 12/07/17 09:00 Future Hold 12/11/17 09:37 (Coreg) 3.125 mg Q12HR PO 12/07/17 11:15 12/12/17 12:07 (Geodon) 20 mg BIDPC PO 12/07/17 18:00 Future Hold 12/08/17 07:57 (Aspirin Chew) 81 mg DAILY CHEW 12/08/17 09:00 12/12/17 12:07 (Duoneb Neb) 1 ampule Q4HR NEB PRN NEB 12/09/17 23:30 12/10/17 14:33 (Vitamin B12 Inj) 1,000 mcg Q3D IM 12/11/17 13:00 12/17/17 13:01 12/11/17 12:56 Allergies Allergies Coded Allergies No Known Allergies (Unverified02/04/17) Exam I&O / VS 12/12/17 12/12/17 12/13/17 15:00 23:00 07:00 Output Total 1000 ml Balance -1000 ml Output Urine Total 1000 ml Bladder Scan Volume Amount 539 ml Vital Signs Date Time Temp Pulse Resp B/P (MAP) Pulse Ox O2 Delivery O2 Flow Rate FiO2 12/12/17 20:00 96.9 66 18 128/76 (93) 94 12/12/17 16:00 96.8 65 18 125/73 (90) 95 12/12/17 12:00 96.9 61 18 140/79 (99) 95 12/12/17 08:00 97.8 64 18 123/75 (91) 98 12/12/17 07:41 94 21 Exam Comments alert, very aggitated. no speech, does not follow even simple commands CN intact MOTOR--no focal deficit Objective Micro and Labs Laboratory Tests Test 12/12/17 03:50 12/12/17 06:22 Urine Color YELLOW Urine Turbidity CLEAR Urine pH 7.0 Urine Specific [place] 1.015 Urine Protein NEG Urine Glucose (UA) NEG Urine Ketones NEG Urine Occult Blood SMALL Urine Nitrite NEG Urine Bilirubin NEG Urine Urobilinogen 0.2 Urine Leukocyte Esterase NEG Urine WBC 0-2 Urine Squamous Epithelial Cells 0-5 Urine Bacteria MOD Microscopic Urinalysis Comment CULTURE INDICATED White Blood Count 7.0 Red Blood Count 3.93 Hemoglobin 12.2 Hematocrit 37.2 Mean Corpuscular Volume 94.6 Mean Corpuscular Hemoglobin 31.1 Mean Corpuscular Hemoglobin Concent 32.9 Red Cell Distribution Width 13.9 Platelet Count 196 Mean Platelet Volume 7.5 Neutrophils (%) (Auto) 73.4 Lymphocytes (%) (Auto) 11.1 Monocytes (%) (Auto) 9.1 Eosinophils (%) (Auto) 6.2 Basophils (%) (Auto) 0.2 Neutrophils # (Auto) 5.2 Lymphocytes # (Auto) 0.8 Monocytes # (Auto) 0.6 Eosinophils # (Auto) 0.4 Basophils # (Auto) 0.0 CBC Comment DIFF FINAL Differential Comment Erythrocyte Sedimentation Rate 10 Blood Urea Nitrogen 21 Creatinine 1.00 Random Glucose 81 Total Protein 5.5 Albumin 2.6 Calcium Level 8.5 Alkaline Phosphatase 75 Aspartate Amino Transf (AST/SGOT) 22 Alanine Aminotransferase (ALT/SGPT) 18 Total Bilirubin 0.5 Sodium Level 135 Potassium Level 4.6 Chloride Level 102 Carbon Dioxide Level 28.1 Anion Gap 5 Estimat Glomerular Filtration Rate 72 Ammonia LESS THAN 10 Folate 2.6 Date/Time Source Procedure Growth Status 12/02/17 19:30 Blood Peripheral Aerobic Blood Culture - Final NO GROWTH IN 5 DAYS Complete 12/02/17 19:30 Blood Peripheral Anaerobic Blood Culture - Final NO GROWTH IN 5 DAYS Complete 12/12/17 03:50 Urine Clean Catch Urine Culture Pending Received Sincere Huggins MD PhD Dec 12, 2017 20:51
[2017-12-12] MEDS ORDERED: LORazepam 2 MG/ML VIAL IV PUSH ONE ×2 (21:00→23:00)
[2017-12-12] MEDS ORDERED: HALOPERIDOL LACTATE 5 MG/ML AMP IM ONE ×2 (21:00→23:00)
[2017-12-12] MEDS ORDERED: HALOPERIDOL LACTATE 5 MG/ML AMP IM PRN (23:00)
[2017-12-13 08:31] VITALS: BP 131/68; PULSE 55; RESP 18; TEMP 96.9; O2SAT 97
[2017-12-13] MEDS: LOSARTAN 25 MG TAB PO SCH (09:00)
[2017-12-13] MEDS: CARVEDILOL 3.125 MG TAB PO SCH ×2 (09:00→20:48)
[2017-12-13] MEDS: amLODIPine BESYLATE 5 MG TAB PO SCH (09:00)
[2017-12-13] MEDS: DOCUSATE SODIUM 50 MG/SENNA 8.6 MG TAB PO SCH ×2 (09:00→20:48)
[2017-12-13] MEDS: TAMSULOSIN HCL 0.4 MG CAP PO SCH (09:00)
[2017-12-13] MEDS: ASPIRIN 81 MG CHEW TAB CHEW SCH (09:00)
[2017-12-13] MEDS: SODIUM CHLORIDE 0.9% FLUSH 10 ML FLUSH IV FLUSH SCH ×2 (09:00→20:48)
--- NOTE | 2017-12-13 09:10 | HHI.PR ---
Review/Management Diagnosis dementia--now with diminished responsiveness. EEG preliminary does not reveal epileptiform discharges, but official reading is pending Plan stop aricept for possible adverse reaction MRI brain if he can tolerate to rule out other process such as stroke. IF MRI negative, consider LP to assess for chronic meningoencephalitis (e.g cryptococcal ) and check 14-3-3 protein to assess for Creutzfeldt-Toribio disease Diagnosis/Plan: Subjective Subjective Comments No acute events reported Active Medications Current Medications Medications (Trade) Dose Ordered Sig/Isa Route Start Time Stop Time Status Last Admin (NS Flush) 2 ml UNSCH PRN IV FLUSH 12/02/17 22:15 (NS Flush) 2 ml BID IV FLUSH 12/03/17 09:00 12/12/17 12:07 (Tylenol) 650 mg Q6H PRN PO 12/02/17 22:15 12/05/17 18:31 (Estefany-Colace) 1 tab BID PO 12/03/17 09:00 12/12/17 21:15 (Milk Of Magnesia Liq) 30 ml Q12H PRN PO 12/02/17 22:15 12/10/17 18:16 (Senokot) 17.2 mg Q12H PRN PO 12/02/17 22:15 (Dulcolax Supp) 10 mg DAILY PRN RECTAL 12/02/17 22:15 12/09/17 09:36 (Lactulose Liq) 30 ml DAILY PRN PO 12/02/17 22:15 (Pill Splitter) 1 ea UNSCH PRN OTHER 12/03/17 13:30 (Norvasc) 10 mg DAILY PO 12/05/17 09:00 12/12/17 12:07 (Cozaar) 25 mg DAILY PO 12/05/17 09:00 12/12/17 12:07 (Apresoline) 25 mg Q8H PRN PO 12/04/17 16:15 12/06/17 20:46 (Flomax) 0.4 mg DAILY PO 12/05/17 09:00 12/12/17 12:07 (Coreg) 3.125 mg Q12HR PO 12/07/17 11:15 12/12/17 21:15 (Geodon) 20 mg BIDPC PO 12/07/17 18:00 Future Hold 12/08/17 07:57 (Aspirin Chew) 81 mg DAILY CHEW 12/08/17 09:00 12/12/17 12:07 (Duoneb Neb) 1 ampule Q4HR NEB PRN NEB 12/09/17 23:30 12/10/17 14:33 (Vitamin B12 Inj) 1,000 mcg Q3D IM 12/11/17 13:00 12/17/17 13:01 12/11/17 12:56 (Haldol Inj) 5 mg Q4H PRN IM 12/12/17 23:00 Allergies Allergies Coded Allergies No Known Allergies (Unverified02/04/17) Exam I&O / VS Vital Signs Date Time Temp Pulse Resp B/P (MAP) Pulse Ox O2 Delivery O2 Flow Rate FiO2 12/13/17 08:31 96.9 55 18 131/68 (89) 97 12/12/17 23:05 96.4 55 18 118/67 (84) 98 12/12/17 20:28 96 21 12/12/17 20:00 96.9 66 18 128/76 (93) 94 12/12/17 16:00 96.8 65 18 125/73 (90) 95 12/12/17 12:00 96.9 61 18 140/79 (99) 95 Exam Comments alert, sedated, not aggitated presently. does not follow commands CN intact MOTOR--no focal deficit Objective Micro and Labs Date/Time Source Procedure Growth Status 12/02/17 19:30 Blood Peripheral Aerobic Blood Culture - Final NO GROWTH IN 5 DAYS Complete 12/02/17 19:30 Blood Peripheral Anaerobic Blood Culture - Final NO GROWTH IN 5 DAYS Complete 12/12/17 03:50 Urine Clean Catch Urine Culture Pending Received Sincere Huggins MD PhD Dec 13, 2017 09:10
--- NOTE | 2017-12-13 09:39 | HHI.PR ---
Subjective Remarks Patient seen and examined today for follow-up on altered mental status, encephalopathy. Patient without any significant improvement. Discussed with psychiatry and neurology. Vital signs are stable, patient remains afebrile Objective Vitals Vital Signs Date Time Temp Pulse Resp B/P (MAP) Pulse Ox O2 Delivery O2 Flow Rate FiO2 12/13/17 08:31 96.9 55 18 131/68 (89) 97 12/12/17 23:05 96.4 55 18 118/67 (84) 98 12/12/17 20:28 96 21 12/12/17 20:00 96.9 66 18 128/76 (93) 94 12/12/17 16:00 96.8 65 18 125/73 (90) 95 12/12/17 12:00 96.9 61 18 140/79 (99) 95 I/O 12/12/17 12/12/17 12/12/17 12/13/17 12/13/17 12/13/17 07:00 15:00 23:00 07:00 15:00 23:00 Output Total 500 ml 1000 ml 600 ml Balance -500 ml -1000 ml -600 ml Output Urine Total 500 ml 1000 ml 600 ml Bladder Scan Volume Amount 539 ml 539 ml Result Diagram: 12/12/1762112/12/17 06 Objective Remarks GENERAL: Well-developed, cachectic, in no acute distress. Patient sitting in bed, protecting his airway. Patient is not responding to verbal commands. HEENT: Head is normocephalic without any lesions or masses noted. Facial features are symmetric. NECK: Supple without any masses. Trachea midline no deviation. No JVD, CARDIAC: Regular rhythm, regular rate. S1/S2 are heard. No murmurs gallops or rubs. LUNGS: Mild wheeze and rhonchi noted bilaterally. No rales. No use of accessory muscles on inspiration or expiration. ABDOMEN: Soft, nontender. Nondistended. Bowel sounds heard in all 4 quadrants. No organomegaly or masses. Negative rebound, negative guarding, EXTREMITIES: No edema, pulses are equal bilaterally. No cyanosis or clubbing Urinary Catheter: No Vascular Central Line Catheter: No A/P Assessment and Plan Metabolic encephalopathy in a patient with known underlying dementia, persistent -Patient with underlying dementia, possible psychosis -Infectious source was not identified, discontinued antibiotics -Seroquel discontinued due to possible urinary retention -Neurology consulted who recommended trial of Aricept -Psychiatry evaluated the patient who agreed with discontinuation of Seroquel and recommended Haldol -Patient was extremely sedated on Haldol, Geodon, Aricept. All of which have been held at this time to evaluate for neurological improvement, no significant change -Speech therapy evaluated the patient and made him pured diet, honey consistent liquid. -Did another laboratory workup for encephalopathy with CBC, CMP, ammonia, sed rate, folate which were all unremarkable -Reconsulted neurology/psychology and consult palliative care -CT of the brain did not indicate small vessel ischemic change -EEG was performed, neurologist indicated that quick evaluation did not indicate any acute abnormality -MRI has been ordered, awaiting results -Psychiatry indicating patient may need lumbar puncture for further evaluation. Neurologist is in agreement if MRI is negative. 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 indicate emphysema with interstitial disease, small bilateral pulmonary nodules, small bilateral effusions -Status post mild diuresis -Patient no longer requiring O2 supplementation -Echocardiogram indicated normal left ventricular size, severely reduced left ventricular function with ejection fraction less than 20%, consistent with dilated cardiomyopathy, PA peak pressure 47.9 mmhg -Patient will require short-term outpatient follow-up on lung nodules -Incentive spirometry Severe cardiomyopathy, possibly dilated cardiomyopathy with ejection fraction less than 20% -Initial troponins were negative on presentation -Patient will likely require AICD/LifeVest, -Consult cardiology for recommendations, who agreed with Coreg, Norvasc, losartan. Added aspirin -Per cardiology, he is not a candidate for defibrillator vest or implantable defibrillated nor a candidate for any invasive procedural workup. Chronic kidney disease stage III, significantly improved -Monitor renal function -Avoid nephrotoxins Urinary retention -Could be secondary to Seroquel use -Thornton catheter, secondary patient not improving and risk of infection of repeat straight cathing -Continue Flomax Cerumen impaction -Resolved after irrigation -Discontinue Debrox Abdominal pain -Unspecified abdominal pain -Appears resolved after bowel movements -Continue with bowel regimen Hypertension, underlying pulmonary hypertension -Blood pressure appears to be elevated during times of agitation -Coreg 3.125 mg twice daily -Norvasc 10 mg daily -Losartan 25 mg daily -Apresoline as needed DVT prevention -Sequential compression devices Discharge Planning Case management for discharge planning, will need rehab placement. [id number] signed and on the chart Eriberto Dalton Dec 13, 2017 09:39
[2017-12-13 11:41] VITALS: O2SAT 96
[2017-12-13 11:49] VITALS: BP 129/60; PULSE 51; RESP 18; TEMP 97; O2SAT 100
--- NOTE | 2017-12-13 12:39 | PD.CONS ---
Consult Service Palliative Care . Consult Requested By Dr. Mesa . Primary Care Physician Unknown . Reason for Consultation a. To assist with evaluation and management of symptoms including: altered mental status. b. To assist medical decision maker(s) with: better understanding of current medical conditions; weighing benefits/burdens of medical treatment options; making medical treatment decisions. . HPI History of Present Illness Mr. Gonzales is a 77-year-old man who presented to the ED on 12/02/2017 with altered mental status. The patient who has a known history of dementia, wandered from his home and was found by concerned neighbors who activated 911. Upon EMS arrival, the patient was found on his front lawn confused, crying and with his pants down. A neighbor confirmed the patient had been altered at baseline for approximately 6 months. Patient attempted to answer simple questions but responses were largely nonsensical. Additional diagnostic data: * Vital signs: Pulse 78, respirations 22, BP 156/70, oxygen saturation 99% on room air and rectal temperature 98.3 * WBC: 6.4, hemoglobin 12.6, hematocrit 39.5, platelets 160, neutrophils 71.3% * Sodium: 139, potassium 4.2, chloride 106, carbon dioxide 29.3, glucose 80, calcium 8.1 * BUN: 26, creatinine 1.60, GFR 42 * Total bilirubin: 0.8, AST 11, ALT 16 * Ammonia: 19 * Total creatine kinase: 75 * Troponin: 0.02 * Total protein: 6.1, albumin 3.2 * TSH 3rd generation: 3.570 * PT: 11.7, INR 1.2, APTT 28.0 * Toxicology screening was negative * Urinalysis was negative for UTI * Chest x-ray showed mild streaky perihilar parenchymal opacities and slight interstitial prominence * CT abdomen/pelvis was grossly negative for acute intra-abdominal process. * CT chest revealed emphysema and diffuse mild interstitial disease which appears at least partly chronic; small bilateral pulmonary nodules which will need to be followed; small bilateral effusions. Patient was admitted for further evaluation and medical management of altered mental status. Psychiatry and neurology were consulted. CT head showed atrophy and chronic appearing white matter changes. Dr. Huggins ( neurology) evaluated the patient who was diagnosed with dementia, likely Alzheimer's type dementia given the prominent anomia. Patient was started on Aricept. Psychiatry evaluated the patient who, on exam, was deemed incapacitated to participate and medical decision making. Speech therapy evaluated the patient's and recommendations were made for a pur ed diet and honey consistency thickened liquids. Palliative Care was consulted to assist with symptom management and to discuss with the family the benefits and burdens of his current illnesses and the options regarding future care. Patient does not appear to be experiencing acute distress on exam. He does not respond to my questions or follow commands. Patient initially pushes my hands away during physical examination but does allow completion of assessment. Urine culture from 12/12/17 growing group D enterococcus. MRI brain pending. . Function/Cognitive Trajectory Patient is a 69-year-old male who lives with a roommate. Patient was found by EMS in his yard crying, confused with his pants down. Neighbors reports reports the patient has had progressively increased confusion over the past 6 months. . Review of Systems Constitutional: COMPLAINS OF: Weight loss, Generalized weakness Ears, nose, mouth, throat: COMPLAINS OF: Hearing loss Respiratory: DENIES: Shortness of breath Cardiovascular: DENIES: Lower Extremity Edema Gastrointestinal: DENIES: Abdominal pain, Nausea, Vomiting Genitourinary: COMPLAINS OF: Hematuria Neurologic: COMPLAINS OF: Speech Problems Psychiatric: COMPLAINS OF: Confusion Other ROS: History obtained by reviewing notes and verbal report . Past Family Social History Coded Allergies: No Known Allergies (Unverified , 02/04/17) Past Medical History Dementia Hypertension Hyperlipidemia ES heart . Past Surgical History Appendectomy . Reported Medications Lisinopril 10 Mg Tab 10 Mg PO DAILY . Current Medications Medications (Trade) Dose Ordered Sig/Isa Route Start Time Stop Time Status Last Admin (NS Flush) 2 ml UNSCH PRN IV FLUSH 12/02/17 22:15 (NS Flush) 2 ml BID IV FLUSH 12/03/17 09:00 12/12/17 12:07 (Tylenol) 650 mg Q6H PRN PO 12/02/17 22:15 12/05/17 18:31 (Estefany-Colace) 1 tab BID PO 12/03/17 09:00 12/13/17 09:00 (Milk Of Magnesia Liq) 30 ml Q12H PRN PO 12/02/17 22:15 12/10/17 18:16 (Senokot) 17.2 mg Q12H PRN PO 12/02/17 22:15 (Dulcolax Supp) 10 mg DAILY PRN RECTAL 12/02/17 22:15 12/09/17 09:36 (Lactulose Liq) 30 ml DAILY PRN PO 12/02/17 22:15 (Pill Splitter) 1 ea UNSCH PRN OTHER 12/03/17 13:30 (Norvasc) 10 mg DAILY PO 12/05/17 09:00 12/13/17 09:00 (Cozaar) 25 mg DAILY PO 12/05/17 09:00 12/13/17 09:00 (Apresoline) 25 mg Q8H PRN PO 12/04/17 16:15 12/06/17 20:46 (Flomax) 0.4 mg DAILY PO 12/05/17 09:00 12/13/17 09:00 (Coreg) 3.125 mg Q12HR PO 12/07/17 11:15 12/13/17 09:00 (Geodon) 20 mg BIDPC PO 12/07/17 18:00 Future Hold 12/08/17 07:57 (Aspirin Chew) 81 mg DAILY CHEW 12/08/17 09:00 12/13/17 09:00 (Duoneb Neb) 1 ampule Q4HR NEB PRN NEB 12/09/17 23:30 12/10/17 14:33 (Vitamin B12 Inj) 1,000 mcg Q3D IM 12/11/17 13:00 12/17/17 13:01 12/11/17 12:56 (Haldol Inj) 5 mg Q4H PRN IM 12/12/17 23:00 Family History Family history is significant for lung cancer. . Substance Use Tobacco: 45-otti-snhv smoking history. Active smoker-1PPD Alcohol: Patient denies Prescription med abuse: Patient denies Illicits: Patient denies . Psychosocial History Patient shares an apartment with his roommate, Kodi. They have reportedly been roommates for approximately 20 years. Per notes, patient has a daughter, Nelida. However, the patient's roommate has no recollection of this. Spiritual/Cultural Factors Voodoo marylu . Documented care wishes: There are no documented care wishes completed. . Today's verbally stated goals: Patient has limited insight and judgment related to his medical condition. He is currently not capacitated to participate in establishment of medical treatment goals. . Family/friends goals: Attempting to identify healthcare proxy decision makers; accurints pending. . Ethical and Legal Issues Patient has a cousin (Munir Xiong) who lives in [place] and can be reached at [phone]. Munir's daughter (Nelida Lockett) lives in [place] # [phone] Home or [phone]. . Physical Exam Vital Signs Date Time Temp Pulse Resp B/P (MAP) Pulse Ox O2 Delivery O2 Flow Rate FiO2 12/13/17 11:49 97.0 51 18 129/60 (83) 100 12/13/17 11:41 96 21 12/13/17 08:31 96.9 55 18 131/68 (89) 97 12/12/17 23:05 96.4 55 18 118/67 (84) 98 12/12/17 20:28 96 21 12/12/17 20:00 96.9 66 18 128/76 (93) 94 12/12/17 16:00 96.8 65 18 125/73 (90) 95 . Exam CONSTITUTIONAL/GENERAL: This is a frail, elderly, male patient in no acute distress TUBES/LINES/DRAINS: Indwelling urinary catheter SKIN: No jaundice, rashes, or lesions. Ecchymoses on upper extremities. Skin tear on right arm, scab noted on right knee skin temperature appropriate. Not diaphoretic. HEAD: Atraumatic. Normocephalic. EYES: Pupils equal and round and reactive. Extraocular motions intact. No scleral icterus. No injection or drainage. Fundi not examined. ENT: Hearing grossly normal. Nose without bleeding or purulent drainage. NECK: Trachea midline. Supple, nontender. No palpable thyroid enlargement or nodularity. CARDIOVASCULAR: Regular rate and rhythm without murmurs, gallops, or rubs. No JVD. Peripheral pulses symmetric. RESPIRATORY/CHEST: Symmetric, unlabored respirations. Clear to auscultation. Breath sounds equal bilaterally. No wheezes, rales, or rhonchi. GASTROINTESTINAL: Abdomen soft, non-tender, nondistended. No hepato-splenomegaly , or palpable masses. No guarding. Bowel sounds present. GENITOURINARY: Without palpable bladder distension. Thornton catheter in place, draining pink tinged urine MUSCULOSKELETAL: Extremities without clubbing, cyanosis, or edema. No mottling or clubbing. LYMPHATICS: No palpable cervical or supraclavicular adenopathy. NEUROLOGICAL: Awake. Does not respond to questions or follow commands. PSYCHIATRIC: No obvious anxiety/depression. no apparent hallucinations or other psychotic thought process. . Diagnostic Tests Laboratory Laboratory Tests Test 12/12/17 03:50 12/12/17 06:22 Urine Color YELLOW (YELLW/STRAW) Urine Turbidity CLEAR (CLEAR) Urine pH 7.0 (5.0-8.5) Urine Specific [place] 1.015 (1.002-1.035) Urine Protein NEG mg/dL (NEG-TRACE) Urine Glucose (UA) NEG mg/dL (NEG) Urine Ketones NEG mg/dL (NEG) Urine Occult Blood SMALL (NEG) Urine Nitrite NEG (NEG) Urine Bilirubin NEG (NEG) Urine Urobilinogen 0.2 MG/DL (LESS THAN Urine Leukocyte Esterase NEG (NEG) Urine WBC 0-2 /hpf (0-5) Urine Squamous Epithelial Cells 0-5 /hpf (0-5) Urine Bacteria MOD /hpf (NONE) Microscopic Urinalysis Comment CULTURE INDICATED White Blood Count 7.0 TH/MM3 (4.0-11.0) Red Blood Count 3.93 MIL/MM3 (4.50-5.90) Hemoglobin 12.2 GM/DL (13.0-17.0) Hematocrit 37.2 % (39.0-51.0) Mean Corpuscular Volume 94.6 FL (80.0-100.0) Mean Corpuscular Hemoglobin 31.1 PG (27.0-34.0) Mean Corpuscular Hemoglobin Concent 32.9 % (32.0-36.0) Red Cell Distribution Width 13.9 % (11.6-17.2) Platelet Count 196 TH/MM3 (150-450) Mean Platelet Volume 7.5 FL (7.0-11.0) Neutrophils (%) (Auto) 73.4 % (16.0-70.0) Lymphocytes (%) (Auto) 11.1 % (9.0-44.0) Monocytes (%) (Auto) 9.1 % (0.0-8.0) Eosinophils (%) (Auto) 6.2 % (0.0-4.0) Basophils (%) (Auto) 0.2 % (0.0-2.0) Neutrophils # (Auto) 5.2 TH/MM3 (1.8-7.7) Lymphocytes # (Auto) 0.8 TH/MM3 (1.0-4.8) Monocytes # (Auto) 0.6 TH/MM3 (0-0.9) Eosinophils # (Auto) 0.4 TH/MM3 (0-0.4) Basophils # (Auto) 0.0 TH/MM3 (0-0.2) CBC Comment DIFF FINAL Differential Comment Erythrocyte Sedimentation Rate 10 mm/hr (0-20) Blood Urea Nitrogen 21 MG/DL (7-18) Creatinine 1.00 MG/DL (0.60-1.30) Random Glucose 81 MG/DL (74-106) Total Protein 5.5 GM/DL (6.4-8.2) Albumin 2.6 GM/DL (3.4-5.0) Calcium Level 8.5 MG/DL (8.5-10.1) Alkaline Phosphatase 75 U/L (45-117) Aspartate Amino Transf (AST/SGOT) 22 U/L (15-37) Alanine Aminotransferase (ALT/SGPT) 18 U/L (12-78) Total Bilirubin 0.5 MG/DL (0.2-1.0) Sodium Level 135 MEQ/L (136-145) Potassium Level 4.6 MEQ/L (3.5-5.1) Chloride Level 102 MEQ/L (98-107) Carbon Dioxide Level 28.1 MEQ/L (21.0-32.0) Anion Gap 5 MEQ/L (5-15) Estimat Glomerular Filtration Rate 72 ML/MIN (>89) Ammonia LESS THAN 10 MCMOL/L Folate 2.6 NG/ML (3.1-17.5) . Result Diagram: 12/12/17 0622 12/12/17 0622 Microbiology Microbiology Date/Time Source Procedure Growth Status 12/02/17 19:30 Blood Peripheral Aerobic Blood Culture - Final NO GROWTH IN 5 DAYS Complete 12/02/17 19:30 Blood Peripheral Anaerobic Blood Culture - Final NO GROWTH IN 5 DAYS Complete 12/12/17 03:50 Urine Clean Catch Urine Culture - Preliminary Group D Enterococcus Resulted . Imaging Last 72 hours Impressions Brain MRI 12/13/17 0000 Signed Impressions: Service Date/Time: Wednesday, December 13, 2017 12:47 - CONCLUSION: 1. Poor quality study due to significant patient motion during the scan. Ventriculomegaly and diffuse T2 prolongation in the supratentorial white matter. 2. 2 tiny areas of bright signal on diffusion weighted sequences near the cortex of the high convexity right parietal region are nonspecific, could represent tiny infarctions or motion artifact. Smith Gutierrez MD Head CT 12/12/17 0000 Signed Impressions: Service Date/Time: Tuesday, December 12, 2017 16:06 - CONCLUSION: 1. No acute abnormality seen. 2. Atrophy. 3. Suspected small vessel ischemic change in the white matter. Deon De Luna MD . Patient/Family Conference Present at Family Conference: Attempted to contact patient's roommate, Kodi Vieyra. Message left on his voicemail with palliative care contact information. . Family Conference Location: Telephone Issues Discussed: * Palliative care team introduced, contact information provided. Assessment and Plan Disease Oriented Problem List: (1) Azotemia (2) Small bowel obstruction (3) Pleural effusion (4) Altered mental status (5) Pulmonary nodules (6) Dementia (7) Metabolic encephalopathy (8) Cerumen impaction (9) HTN (hypertension) (10) Hypoxemia (11) Urinary retention (12) Acute hypoactive delirium due to multiple etiologies Symptom Scale: (1) Altered mental status 0-10 Scale: Unable to quantify Pertinent Non-Medical Issues Psychosocial:Patient shares an apartment with his roommate, Kodi. They have reportedly been roommates for approximately 20 years. Per notes, patient has a daughter, Nelida. However, the patient's roommate has no recollection of this. Spiritual: Voodoo marylu Legal: Attempts to contact possible daughter and/or cousins was unsuccessful because all possible phone numbers have been disconnected. Accurints report pending. If attempts to locate family members are exhausted, patient's roommate may be considered to act in the role of the healthcare proxy decision-maker. Otherwise will need to consult social work advantage. Ethical issues impacting care: No known ethical issues impacting care at this time. . Important Contacts Kodi Vieyra, friend: [phone] . Prognosis Patient is a frail appearing, 77-year-old male with a known history of dementia , hypertension and heart disease who is becoming increasingly less responsive/ interactive. An echocardiogram on 12/05/2007 showed severely reduced left ventricular systolic function with an estimated EF <20%; findings were consistent with dilated cardiomyopathy. Patient is not a candidate for invasive procedural workup or aggressive interventions. Overall prognosis is poor. . Code Status: No Code Plan * NO CODE * Decision-making: Patient lacks insight and judgment related to his medical conditions. Patient has a cousin (Munir Xiong) who [place] [facility] [place] reached at [phone]. Munir's daughter (Nelida Lockett) lives in [place] # Home or [phone]. Munir appears willing to act in the role of HCP decision making. * GOALS AGGRESSIVE up to the point of cardiopulmonary resuscitation * Family would like to consider medical treatment goals moving further overnight. Tentative plan to discuss medical treatment goals further via telephone tomorrow afternoon 12/14/16. * Discussed current medical treatment goals with human services case manager (Telma) and RN (Deon). * Symptom management-altered mental status: CT head on admission showed atrophy and chronic appearing white matter changes. Preliminary EEG does not reveal left to form discharges. MRI pending to rule out acute process such as stroke. If MRI is negative, consider LP to assess for chronic meningeal encephalitis ( e.g cryptococcal ) and check 14-3-3 protein to assess for Creutzfeldt-Toribio disease. * Palliative care will continue to follow this patient to establish trust, assist with symptom management and clarification of medical treatment goals. . Thank you for the opportunity to participate in the care of Mr. Gonzales. . Attestation To help prompt me to consider important information that might be impacting today's encounter and assessment, information from prior notes written by myself or my colleagues may have been "brought forward" into today's note. My signature on this note, however, is an attestation that I personally performed the exam, history, and/or decision-making noted today, and, unless otherwise indicated, the interactions with patient, family, and staff as well as the review of records all occurred today. I also attest that the listed assessment and stated plan reflect my best clinical judgment today based on the combination of historical information, prior notes, and today's exam/ interactions. When time spent is documented, it refers only to time spent today by the signer, or if indicated, combined time spent today by collaborating physician/nurse practitioner. . Zakia Fontanez Dec 13, 2017 12:39
--- NOTE | 2017-12-13 13:29 | RADRPT ---
EXAM DATE/TIME: 12/13/2017 12:47 [facility] COMPARISON: CT BRAIN W/O CONTRAST, December 12, 2017, 16:06. INDICATIONS : CVA. MEDICAL HISTORY : Unknown. SURGICAL HISTORY : Unknown. ENCOUNTER: Initial ACUITY: 1 day PAIN SCORE: 0/10 LOCATION: Head. TECHNIQUE: Multiplanar, multisequence MRI of the brain was performed without contrast. FINDINGS: Severe technical limitations of the study due to patient motion. Small abnormalities in the lung det ected given the degree of motion artifact. Midline structures are not deviated. There is prominence of the lateral and 3rd ventricle. Diffuse T2 prolongation in the white matter of the supratentorial brain. . No extra-axial fluid. No definite evidence of blood products. There are 2 tiny areas of bright signal on the diffusion-weighted sequence near the high convexity cortex which represent tiny cortical infarct or motion artifact. The posterior fossa structures are grossly unremarkable. CONCLUSION: 1. Poor quality study due to significant patient motion during the scan. Ventriculomegaly and dif fuse T2 prolongation in the supratentorial white matter. 2. 2 tiny areas of bright signal on diffusion weighted sequences near the cortex of the high convex ity right parietal region are nonspecific, could represent tiny infarctions or motion artifact. Smith Gutierrez MD on December 13, 2017 at 13:23 Board Certified Radiologist. This report was verified electronically.
--- NOTE | 2017-12-13 15:20 | HHI.HCPN ---
Attempting to locate possible family for Mr. Gonzales. In review of progress notes it appears Mr. Gonzales has a daughter, Nelida Lockett (numbers previously given were disconnected). Additional contact information found via google search : [phone]. Left message requesting call back. Also appears Mr. Gonzales has a cousin, Munir Cardenas (numbers previously given were disconnected). Google search produced: [phone]. Number just rings, will continue to try. Old records lists Tien Beavers, as a family/other relationship in EMR. Number just rings, will continue to try. Accurint pending.. Floresita Riley BARREL RIFLER, CARDBOARD CUTTER Dec 13, 2017 15:20
[2017-12-13 15:59] VITALS: BP 110/58; PULSE 56; RESP 16; TEMP 96.8; O2SAT 96
--- NOTE | 2017-12-13 19:28 | MG ---
cc: Los Ochoa MD EEG NUMBER: [id number] A 77-year-old man, a 6 Hz diffuse low-amplitude 40-50 microvolt rhythm is noted. Some bifrontal muscle artifact is seen. No focal abnormalities were noted. A lot of bitemporal muscle artifact is also noted, which obscures a lot of the recording. I do not see any hemisphere asymmetry or epileptiform or seizure activity. Photic stimulation was performed without posterior driving. IMPRESSION: Some diffuse theta slowing consistent with a mild to moderate diffuse encephalopathy, but no focal abnormality was noted. No seizure activity was seen. MD DONNA Caraballo/NETTE , 07:17 PM , 07:27 PM
[2017-12-13 20:00] VITALS: BP 135/76; PULSE 69; RESP 18; TEMP 96.8; O2SAT 95
[2017-12-13 20:22] VITALS: O2SAT 95
[2017-12-14] VITALS: BP 147/73; PULSE 60; RESP 18; TEMP 96.7; O2SAT 95
[2017-12-14 08:00] VITALS: BP 154/67; PULSE 55; RESP 20; TEMP 98; O2SAT 95
[2017-12-14] MEDS: TAMSULOSIN HCL 0.4 MG CAP PO SCH (08:13)
[2017-12-14] MEDS: ASPIRIN 81 MG CHEW TAB CHEW SCH (08:13)
[2017-12-14] MEDS: amLODIPine BESYLATE 5 MG TAB PO SCH (08:13)
[2017-12-14] MEDS: DOCUSATE SODIUM 50 MG/SENNA 8.6 MG TAB PO SCH ×2 (08:13→20:55)
[2017-12-14] MEDS: CARVEDILOL 3.125 MG TAB PO SCH ×2 (08:13→20:55)
[2017-12-14] MEDS: LOSARTAN 25 MG TAB PO SCH (08:13)
[2017-12-14] MEDS: SODIUM CHLORIDE 0.9% FLUSH 10 ML FLUSH IV FLUSH SCH ×2 (08:16→19:34)
--- NOTE | 2017-12-14 11:37 | HHI.PR ---
Subjective Remarks Patient seen and evaluated in follow-up for dementia. Care plan discussed with palliative care team. Family notified and continue planning is in progress Objective Vitals Vital Signs Date Time Temp Pulse Resp B/P (MAP) Pulse Ox O2 Delivery O2 Flow Rate FiO2 12/14/17 08:00 98.0 55 20 154/67 (96) 95 12/14/17 00:00 96.7 60 18 147/73 (97) 95 12/13/17 20:22 95 21 12/13/17 20:00 96.8 69 18 135/76 (95) 95 12/13/17 15:59 96.8 56 16 110/58 (75) 96 12/13/17 11:49 97.0 51 18 129/60 (83) 100 12/13/17 11:41 96 21 I/O 12/13/17 12/13/17 12/13/17 12/14/17 12/14/17 12/14/17 07:00 15:00 23:00 07:00 15:00 23:00 Intake Total 400 ml 60 ml Output Total 600 ml 350 ml 425 ml Balance -600 ml 50 ml -365 ml Intake Oral 400 ml 60 ml Output Urine Total 600 ml 350 ml 425 ml # Voids 1 # Bowel Movements 0 Result Diagram: 12/12/1762112/12/17621 Imaging Last Impressions Brain MRI 12/13/17 0000 Signed Impressions: Service Date/Time: Wednesday, December 13, 2017 12:47 - CONCLUSION: 1. Poor quality study due to significant patient motion during the scan. Ventriculomegaly and diffuse T2 prolongation in the supratentorial white matter. 2. 2 tiny areas of bright signal on diffusion weighted sequences near the cortex of the high convexity right parietal region are nonspecific, could represent tiny infarctions or motion artifact. Smith Gutierrez MD Head CT 12/12/17 0000 Signed Impressions: Service Date/Time: Tuesday, December 12, 2017 16:06 - CONCLUSION: 1. No acute abnormality seen. 2. Atrophy. 3. Suspected small vessel ischemic change in the white matter. Deon De Luna MD Chest X-Ray 12/02/17 1910 Signed Impressions: Service Date/Time: November 19:58 - CONCLUSION: Mild streaky perihilar parenchymal opacities and slight interstitial prominence Deon Durham MD Chest CT 12/02/17 0000 Signed Impressions: Service Date/Time: November 21:03 - CONCLUSION: Emphysema and diffuse mild interstitial disease which appears at least partly chronic. Small bilateral pulmonary nodules which will need to be followed. Small bilateral effusions. Deon Durham MD Abdomen/Pelvis CT 12/02/17 0000 Signed Impressions: Service Date/Time: November 21:03 - CONCLUSION: Motion degraded exam grossly negative for acute intra-abdominal process. Deon Durham MD Objective Remarks GENERAL: This is a well-nourished, well-developed patient, subdued affect CARDIOVASCULAR: Regular rate and rhythm without murmurs, gallops, or rubs. RESPIRATORY: Clear to auscultation. Breath sounds equal bilaterally. No wheezes , rales, or rhonchi. GASTROINTESTINAL: Abdomen soft, non-tender, nondistended. Normal active bowel sounds MUSCULOSKELETAL: Extremities without clubbing, cyanosis, or edema. NEURO: confused, calm at the moment A/P Problem List: (1) Metabolic encephalopathy ICD Code: G93.41 - Metabolic encephalopathy Plan: Patient with underlying dementia No evidence of seizure Imaging no definite infarct (2) Dementia ICD Code: F03.90 - Unspecified dementia without behavioral disturbance Plan: Hold Aricept prn iv Haldol (3) Abdominal pain ICD Code: R10.9 - Unspecified abdominal pain Plan: Appears resolved after bowel movements Continue with bowel regimen Follow-up for bowel movements and p.o. intake (4) HTN (hypertension) ICD Code: I10 - Essential (primary) hypertension Plan: Improved on current regimen of Coreg, losartan and Norvasc (5) Urinary retention ICD Code: R33.9 - Retention of urine, unspecified Plan: Continue with Thornton Continue Flomax (6) UTI (urinary tract infection) due to Enterococcus ICD Code: N39.0 - Urinary tract infection, site not specified; B95.2 - Enterococcus as the cause of diseases classified elsewhere Plan: ampicillin Discharge Planning Psych consult pending Prachi Camejo MD December 14, 2017 11:37
[2017-12-14 12:00] VITALS: BP 124/58; PULSE 57; RESP 20; TEMP 98; O2SAT 95
[2017-12-14] MEDS: CYANOCOBALAMIN 1000 MCG/ML VIAL IM SCH (12:26)
[2017-12-14] MEDS: AMOXICILLIN (TRIHYDRATE) 500 MG CAP PO SCH ×2 (13:07→20:55)
[2017-12-14 16:00] VITALS: BP 130/60; PULSE 60; RESP 18; TEMP 98; O2SAT 95
--- NOTE | 2017-12-14 17:23 | HHI.HCPN ---
Reason for visit a. To assist with evaluation and management of symptoms including: altered mental status. b. To assist medical decision maker(s) with: better understanding of current medical conditions; weighing benefits/burdens of medical treatment options; making medical treatment decisions. . Subjective/Interval History Follow-up visit for symptom management of altered mental status and clarification of medical treatment goals. Patient seen and assessed in room 8312 at [facility]. Patient remains confused, speech is largely nonsensical. CT head showed atrophy and chronic appearing white matter changes. Dr. Huggins (neurology) evaluated the patient who was diagnosed with dementia, likely Alzheimer's type dementia given the prominent anomia. Patient was started on Aricept. Psychiatry evaluated the patient who, on exam, was deemed incapacitated to participate and medical decision making. Haldol is available IM as needed for agitation, last received on 12/13/2017 at 1727. Urine culture from 12/12/2017 growing enterococcus faecalis. Patient started on amoxicillin 500 mg PO every 8 hours. Echocardiogram with severely reduced left ventricular systolic function and an estimated EF fraction of less than 20%. Cardiology was consulted and recommended medical management as the patient is not a candidate for any invasive procedural workup. Palliative care spoke with both the patient's cousin (Munir) and the patient's roommate (Kodi). Both states that the patient would want to focus on quality of life at this point. They have requested hospice services for symptom management and end-of-life care. Dr. Camejo and nurse (Deon) notified. Hospice consult pending. . Family/friend interactions See interval history . Advance Directives Advance Directive Specifics Documented care wishes: There are no documented care wishes completed. . Significant change in goals: Patient's family and friends feel the patient would not want to focus on quality of life at this point in time. Hospice has been consulted for symptom management and end-of-life care. . Objective Vital Signs Date Time Temp Pulse Resp B/P (MAP) Pulse Ox O2 Delivery O2 Flow Rate FiO2 12/14/17 12:00 98.0 57 20 124/58 (80) 95 12/14/17 08:00 98.0 55 20 154/67 (96) 95 12/14/17 00:00 96.7 60 18 147/73 (97) 95 12/13/17 20:22 95 21 12/13/17 20:00 96.8 69 18 135/76 (95) 95 Intake & Output 12/14/17 12/14/17 07:00 19:00 Intake Total 60 ml Output Total 425 ml Balance -365 ml Intake Oral 60 ml Output Urine Total 425 ml # Bowel Movements 0 . Physical Exam CONSTITUTIONAL/GENERAL: This is a frail, elderly, male patient in no acute distress TUBES/LINES/DRAINS: Indwelling urinary catheter SKIN: No jaundice, rashes, or lesions. Ecchymoses on upper extremities. Skin tear on right arm, scab noted on right knee skin temperature appropriate. Not diaphoretic. HEAD: Atraumatic. Normocephalic. EYES: Pupils equal and round and reactive. Extraocular motions intact. No scleral icterus. No injection or drainage. Fundi not examined. ENT: Hearing grossly normal. Nose without bleeding or purulent drainage. NECK: Trachea midline. Supple, nontender. No palpable thyroid enlargement or nodularity. CARDIOVASCULAR: Regular rate and rhythm without murmurs, gallops, or rubs. No JVD. Peripheral pulses symmetric. RESPIRATORY/CHEST: Symmetric, unlabored respirations. Clear to auscultation. Breath sounds equal bilaterally. No wheezes, rales, or rhonchi. GASTROINTESTINAL: Abdomen soft, non-tender, nondistended. No hepato-splenomegaly , or palpable masses. No guarding. Bowel sounds present. GENITOURINARY: Without palpable bladder distension. Thornton catheter in place, draining pink tinged urine MUSCULOSKELETAL: Extremities without clubbing, cyanosis, or edema. No mottling or clubbing. LYMPHATICS: No palpable cervical or supraclavicular adenopathy. NEUROLOGICAL: Awake. Does not respond to questions or follow commands. PSYCHIATRIC: No obvious anxiety/depression. no apparent hallucinations or other psychotic thought process. . Diagnostic Tests Laboratory Laboratory Tests Test 12/12/17 03:50 12/12/17 06:22 Urine Color YELLOW (YELLW/STRAW) Urine Turbidity CLEAR (CLEAR) Urine pH 7.0 (5.0-8.5) Urine Specific [place] 1.015 (1.002-1.035) Urine Protein NEG mg/dL (NEG-TRACE) Urine Glucose (UA) NEG mg/dL (NEG) Urine Ketones NEG mg/dL (NEG) Urine Occult Blood SMALL (NEG) Urine Nitrite NEG (NEG) Urine Bilirubin NEG (NEG) Urine Urobilinogen 0.2 MG/DL (LESS THAN Urine Leukocyte Esterase NEG (NEG) Urine WBC 0-2 /hpf (0-5) Urine Squamous Epithelial Cells 0-5 /hpf (0-5) Urine Bacteria MOD /hpf (NONE) Microscopic Urinalysis Comment CULTURE INDICATED White Blood Count 7.0 TH/MM3 (4.0-11.0) Red Blood Count 3.93 MIL/MM3 (4.50-5.90) Hemoglobin 12.2 GM/DL (13.0-17.0) Hematocrit 37.2 % (39.0-51.0) Mean Corpuscular Volume 94.6 FL (80.0-100.0) Mean Corpuscular Hemoglobin 31.1 PG (27.0-34.0) Mean Corpuscular Hemoglobin Concent 32.9 % (32.0-36.0) Red Cell Distribution Width 13.9 % (11.6-17.2) Platelet Count 196 TH/MM3 (150-450) Mean Platelet Volume 7.5 FL (7.0-11.0) Neutrophils (%) (Auto) 73.4 % (16.0-70.0) Lymphocytes (%) (Auto) 11.1 % (9.0-44.0) Monocytes (%) (Auto) 9.1 % (0.0-8.0) Eosinophils (%) (Auto) 6.2 % (0.0-4.0) Basophils (%) (Auto) 0.2 % (0.0-2.0) Neutrophils # (Auto) 5.2 TH/MM3 (1.8-7.7) Lymphocytes # (Auto) 0.8 TH/MM3 (1.0-4.8) Monocytes # (Auto) 0.6 TH/MM3 (0-0.9) Eosinophils # (Auto) 0.4 TH/MM3 (0-0.4) Basophils # (Auto) 0.0 TH/MM3 (0-0.2) CBC Comment DIFF FINAL Differential Comment Erythrocyte Sedimentation Rate 10 mm/hr (0-20) Blood Urea Nitrogen 21 MG/DL (7-18) Creatinine 1.00 MG/DL (0.60-1.30) Random Glucose 81 MG/DL (74-106) Total Protein 5.5 GM/DL (6.4-8.2) Albumin 2.6 GM/DL (3.4-5.0) Calcium Level 8.5 MG/DL (8.5-10.1) Alkaline Phosphatase 75 U/L (45-117) Aspartate Amino Transf (AST/SGOT) 22 U/L (15-37) Alanine Aminotransferase (ALT/SGPT) 18 U/L (12-78) Total Bilirubin 0.5 MG/DL (0.2-1.0) Sodium Level 135 MEQ/L (136-145) Potassium Level 4.6 MEQ/L (3.5-5.1) Chloride Level 102 MEQ/L (98-107) Carbon Dioxide Level 28.1 MEQ/L (21.0-32.0) Anion Gap 5 MEQ/L (5-15) Estimat Glomerular Filtration Rate 72 ML/MIN (>89) Ammonia LESS THAN 10 MCMOL/L Folate 2.6 NG/ML (3.1-17.5) . Result Diagram: 12/12/1722 12/12/17 0622 Microbiology Microbiology Date/Time Source Procedure Growth Status 12/12/17 03:50 Urine Clean Catch Urine Culture - Final Enterococcus Faecalis Complete Imaging Last 72 hours Impressions Brain MRI 12/13/17 0000 Signed Impressions: Service Date/Time: Wednesday, December 13, 2017 12:47 - CONCLUSION: 1. Poor quality study due to significant patient motion during the scan. Ventriculomegaly and diffuse T2 prolongation in the supratentorial white matter. 2. 2 tiny areas of bright signal on diffusion weighted sequences near the cortex of the high convexity right parietal region are nonspecific, could represent tiny infarctions or motion artifact. Smith Gutierrez MD Head CT 12/12/17 0000 Signed Impressions: Service Date/Time: Tuesday, December 12, 2017 16:06 - CONCLUSION: 1. No acute abnormality seen. 2. Atrophy. 3. Suspected small vessel ischemic change in the white matter. Deon De Luna MD . Assessment and Plan Disease Oriented Problem List: (1) Azotemia (2) Small bowel obstruction (3) Pleural effusion (4) Altered mental status (5) Pulmonary nodules (6) Dementia (7) Metabolic encephalopathy (8) Cerumen impaction (9) HTN (hypertension) (10) Hypoxemia (11) Urinary retention (12) Acute hypoactive delirium due to multiple etiologies Symptom Scale: (1) Altered mental status 0-10 Scale: Unable to quantify Pertinent Non-Medical Issues Psychosocial:Patient shares an apartment with his roommate, Kodi. They have reportedly been roommates for approximately 20 years. Per notes, patient has a daughter, Nelida. However, the patient's roommate has no recollection of this. Spiritual: Anglican marylu Legal: Attempts to contact possible daughter and/or cousins was unsuccessful because all possible phone numbers have been disconnected. Accurints report pending. If attempts to locate family members are exhausted, patient's roommate may be considered to act in the role of the healthcare proxy decision-maker. Otherwise will need to consult social work advantage. Ethical issues impacting care: No known ethical issues impacting care at this time. . Important Contacts Kodi Vieyra, friend: [phone] Munir Xiong, cousin: [phone] . Prognosis Patient is a frail appearing, 77-year-old male with a known history of dementia , hypertension and heart disease who is becoming increasingly less responsive/ interactive. An echocardiogram on 12/05/2007 showed severely reduced left ventricular systolic function with an estimated EF <20%; findings were consistent with dilated cardiomyopathy. Patient is not a candidate for invasive procedural workup or aggressive interventions. Overall prognosis is poor. . Code Status: No Code Plan * NO CODE * Decision-making: Patient lacks insight and judgment related to his medical conditions. Patient is not ; he has no children or siblings. Per [place] statutes, in the absence of written advanced directives healthcare proxy decision making falls to an adult relative of the patient who is exhibited special care and concern for the patient and who has maintained regular contact with the patient and who is familiar with the patient's activities, health, and islam or moral beliefs; or a close friend of the patient. * Palliative care spoke with both the patient's cousin (Munir) and the patient' s roommate (Kodi). Both agree that the patient would want to focus on quality of life at this point. They have requested hospice services for symptom management and end-of-life care. Dr. Camejo and nurse (Deon) notified. Hospice consult pending. * Contacts: Kodi Vieyra, friend: [phone] and/or Munir Xiong, cousin: * Discussed current medical treatment goals with case assembler (Telma), Dr. Camejo and RN (Deon). * Symptom management-altered mental status: CT head on admission showed atrophy and chronic appearing white matter changes. Preliminary EEG does not reveal left to form discharges. MRI pending to rule out acute process such as stroke. If MRI is negative, consider LP to assess for chronic meningeal encephalitis ( e.g cryptococcal ) and check 14-3-3 protein to assess for Creutzfeldt-Toribio disease. * Palliative care will continue to follow this patient to establish trust, assist with symptom management and clarification of medical treatment goals. . Attestation To help prompt me to consider important information that might be impacting today's encounter and assessment, information from prior notes written by myself or my colleagues may have been "brought forward" into today's note. My signature on this note, however, is an attestation that I personally performed the exam, history, and/or decision-making noted today, and, unless otherwise indicated, the interactions with patient, family, and staff as well as the review of records all occurred today. I also attest that the listed assessment and stated plan reflect my best clinical judgment today based on the combination of historical information, prior notes, and today's exam/ interactions. When time spent is documented, it refers only to time spent today by the signer, or if indicated, combined time spent today by collaborating physician/nurse practitioner. . Zakia Fontanez December 14, 2017 17:23
[2017-12-14 20:00] VITALS: BP 165/74; PULSE 64; RESP 18; TEMP 97.1; O2SAT 96
[2017-12-15 00:09] VITALS: BP 136/65; PULSE 105; RESP 18; TEMP 97.2; O2SAT 95
[2017-12-15] MEDS: AMOXICILLIN (TRIHYDRATE) 500 MG CAP PO SCH ×2 (05:49→14:00)
[2017-12-15 08:00] VITALS: BP 125/60; PULSE 63; RESP 18; TEMP 97; O2SAT 97
[2017-12-15] MEDS: DOCUSATE SODIUM 50 MG/SENNA 8.6 MG TAB PO SCH (09:38)
[2017-12-15] MEDS: TAMSULOSIN HCL 0.4 MG CAP PO SCH (09:38)
[2017-12-15] MEDS: amLODIPine BESYLATE 5 MG TAB PO SCH (09:38)
[2017-12-15] MEDS: ASPIRIN 81 MG CHEW TAB CHEW SCH (09:38)
[2017-12-15] MEDS: CARVEDILOL 3.125 MG TAB PO SCH (09:38)
[2017-12-15] MEDS: LOSARTAN 25 MG TAB PO SCH (09:39)
[2017-12-15] MEDS: SODIUM CHLORIDE 0.9% FLUSH 10 ML FLUSH IV FLUSH SCH (09:39)
[2017-12-15] MEDS ORDERED: TAMS5CAP PO (11:59)
[2017-12-15] MEDS ORDERED: AMLO5 PO (11:59)
[2017-12-15] MEDS ORDERED: AMOX500C PO (11:59)
[2017-12-15] MEDS ORDERED: CARV3.125 PO (11:59)
[2017-12-15 12:00] VITALS: BP 124/59; PULSE 61; RESP 18; TEMP 96.5; O2SAT 95
--- NOTE | 2017-12-15 12:00 | HHI.PR ---
Subjective Remarks Patient seen and evaluated in follow-up for dementia. No new events. Hospice team following and appreciated. Objective Vitals Vital Signs Date Time Temp Pulse Resp B/P (MAP) Pulse Ox O2 Delivery O2 Flow Rate FiO2 12/15/17 08:00 97.0 63 18 125/60 (81) 97 12/15/17 00:09 97.2 105 18 136/65 (88) 95 12/14/17 20:00 97.1 64 18 165/74 (104) 96 12/14/17 16:00 98.0 60 18 130/60 (83) 95 12/14/17 12:00 98.0 57 20 124/58 (80) 95 I/O 12/14/17 12/14/17 12/14/17 12/15/17 12/15/17 12/15/17 07:00 15:00 23:00 07:00 15:00 23:00 Intake Total 60 ml 360 ml Output Total 425 ml Balance -365 ml 360 ml Intake Oral 60 ml 360 ml Output Urine Total 425 ml # Bowel Movements 0 Result Diagram: 12/12/1762112/12/17621 Objective Remarks GENERAL: This is a well-nourished, well-developed patient, subdued affect CARDIOVASCULAR: Regular rate and rhythm without murmurs, gallops, or rubs. RESPIRATORY: Clear to auscultation. Breath sounds equal bilaterally. No wheezes , rales, or rhonchi. GASTROINTESTINAL: Abdomen soft, non-tender, nondistended. Normal active bowel sounds MUSCULOSKELETAL: Extremities without clubbing, cyanosis, or edema. NEURO: confused, calm at the moment A/P Problem List: (1) Urinary retention ICD Code: R33.9 - Retention of urine, unspecified Plan: Continue with Thornton Continue Flomax (2) UTI (urinary tract infection) due to Enterococcus ICD Code: N39.0 - Urinary tract infection, site not specified; B95.2 - Enterococcus as the cause of diseases classified elsewhere Plan: ampicillin Discharge Planning Likely discharge to hospice care facility when arrangements are made Prcahi Camejo MD December 15, 2017 12:00
--- NOTE | 2017-12-15 12:00 | HHI.DCPOC ---
Discharge Care Plan Diagnosis: (1) UTI (urinary tract infection) due to Enterococcus (2) Urinary retention (3) Dementia Goals to Promote Your Health * To prevent worsening of your condition and complications * To maintain your health at the optimal level Directions to Meet Your Goals Take your medications as prescribed Follow your dietary instruction Follow activity as directed Keep your appointments as scheduled Take your immunizations and boosters as scheduled If your symptoms worsen call your PCP, if no PCP go to Urgent Care Center or Emergency Room Smoking is Dangerous to Your Health. Avoid second hand smoke Call the 24-hour hour crisis hotline for domestic abuse at Prachi Camejo MD December 15, 2017 12:00
[2017-12-15 16:00] VITALS: BP 120/63; PULSE 60; RESP 18; TEMP 96.6; O2SAT 98
== END 2017-12-15 17:31 | disposition hospice, inpatient (51) | DRG 56 ==
LOC: PHED 18:57 → PHEDA 22:13 → PH3B 12-03 00:20 → OBSVTOIN 12-03 13:21
PROVIDERS: ADMIT Hospitalist; ATTEND Hospitalist
DX: G30.9 Alzheimer's disease, unspecified (principal); G93.41 Metabolic encephalopathy; J84.9 Interstitial pulmonary disease, unspecified; J90 Pleural effusion, not elsewhere classified; I42.0 Dilated cardiomyopathy; F05 Delirium due to known physiological condition; N39.0 Urinary tract infection, site not specified; I27.20 Pulmonary hypertension, unspecified; F02.80 Dementia in other diseases classified elsewhere, unspecified severity, without behavioral disturbance, psychotic disturbance, mood disturbance, and anxiety; N18.3 Chronic kidney disease, stage 3 (moderate); B95.2 Enterococcus as the cause of diseases classified elsewhere; J43.9 Emphysema, unspecified; R91.8 Other nonspecific abnormal finding of lung field; E78.00 Pure hypercholesterolemia, unspecified; I12.9 Hypertensive chronic kidney disease with stage 1 through stage 4 chronic kidney disease, or unspecified chronic kidney disease; E78.5 Hyperlipidemia, unspecified; R79.89 Other specified abnormal findings of blood chemistry; R09.02 Hypoxemia; R60.0 Localized edema; R54 Age-related physical debility; H61.20 Impacted cerumen, unspecified ear; F17.210 Nicotine dependence, cigarettes, uncomplicated; Z51.5 Encounter for palliative care; Z78.1 Physical restraint status
CPT/HCPCS: 70450; 70551; 71045; 71250; 74176; 80048; 80053; 80307; 81001; 82140; 82550; 82607; 82746; 83605; 83735; 84443; 84484; 85007; 85025; 85027; 85610; 85652; 85730; 86592; 87040; 87077; 87086; 87186; 93005; 93306; 94150; 94640; 94664; 95819; G8987-GP; G8988-GP; J0456; J0696; J1630; J1885; J1940; J2060; J3420; J7030; J7050; J7120